=== PATIENT | female | born 1940 | race African-American/Black ===

== ENCOUNTER → 2016-12-18 | Outpatient (CLI) | payer MEDICARE, BC ==
[2016-10-01 09:21] VITALS: BP 147/66
[~2016-12-18] MED LIST: ACET325T9 PO; AMLO10TA2 PO; ARIP10TA13 PO; ARIP5TAB6 PO; ASPI-482 PO; CARB1TAB22 PO; CARV25TA2 PO; CHOL100013 PO; CRAN250C PO; CRAN500C6 PO; CYAN10005 PO; DOCU-27 PO; DONE5TAB7 PO; FOSI40TA PO; INSU100I13 SQ; INSU100I17 SQ; INSU100V31 SQ; INSU100V8 SQ; KRIL1CAP18 PO; LAMO100T5 PO; LAMO150T3 PO; LANS15TA5 PO; LEVO50TA5 PO; LISI-334 PO; MAG355OR17 PO; MAGN2400 PO; MAGN400T3 PO; METF10002 PO; METH29OI TP; MULT1TAB97 PO; NIFE60TA10 PO; PANT40TA3 PO; POLY17PO5 PO; PRAV80TA2 PO; ROPI0.5T PO
--- NOTE | 2016-12-18 15:17 | RAD ---
Bilateral lower extremity venous Doppler ultrasound History: Bilateral lower extremity swelling, elevated d-dimer. Previous deep venous thrombosis. Comparison: Bilateral lower extremity Doppler 01/09/2015. Procedure: Color Doppler, spectral Doppler, and grayscale images are obtained with and without compression in the area of the common femoral vein, superficial femoral vein - femoral vein junction, main femoral vein (superficial femoral vein) and popliteal vein. Veins of the proximal calf are also imaged. Findings: There is normal duplex flow, color flow and compressibility of all visualized vein segments. No evidence of deep venous thrombosis is present. Impression: No evidence of lower extremity deep venous thrombosis.
== END | disposition home or self-care (01) ==
LOC: US 13:55
PROVIDERS: ATTEND Family Medicine
DX: I99.8 Other disorder of circulatory system (principal); N39.9 Disorder of urinary system, unspecified; E87.6 Hypokalemia; E16.2 Hypoglycemia, unspecified; D56.3 Thalassemia minor; R30.0 Dysuria; R10.84 Generalized abdominal pain
CPT/HCPCS: 93970

== ENCOUNTER → 2017-01-24 | Outpatient (CLI) | payer MEDICARE, BC ==
[2016-10-01 09:21] VITALS: BP 147/66
[~2017-01-24] MED LIST changes: -ARIP10TA13 PO; +ARIP10TA9 PO; +ARIP5TAB13 PO; -ARIP5TAB6 PO; +DOCU-109 PO; -DOCU-27 PO; -LANS15TA5 PO; +LANS15TA6 PO
[2017-01-24 22:29] LABS: COLOR,URINE YELLOW
[2017-01-24 22:30] LABS: AMORPHOUS SEDIMENT,UR PRESENT /HPF; BACTERIA,URINE FEW /HPF (0-FEW); BILIRUBIN,URINE NEG (NEG); CLARITY,URINE HAZY; GLUCOSE,URINE NEG (NEG); HYALINE CASTS, URINE MOD /HPF; NITRITE,URINE NEG (NEG); SQUAMOUS EPITHELIAL CELL,UR MOD /LPF; UROBILINOGEN,URINE 0.2 mg/dL (0.2 mg/dL)
== END | disposition home or self-care (01) ==
LOC: LAB 21:18
PROVIDERS: ATTEND Family Medicine
DX: R30.0 Dysuria (principal)
CPT/HCPCS: 81001; 87086

== ENCOUNTER 2017-03-05 11:37 | Emergency (ER) | payer MEDICARE, BC ==
[~2017-03-05] VITALS: Ht 167.6 cm; Wt 97.2 kg
--- NOTE | 2017-03-05 12:34 | RAD ---
Portable chest, 03/05/2017: History: Weakness Comparison is made to a study from 09/19/2016. The heart size and pulmonary vascularity are normal. No pulmonary infiltrates are seen. There is no evidence of pleural fluid. IMPRESSION: No acute cardiopulmonary abnormality is detected.
--- NOTE | 2017-03-05 12:43 | PHYS DOC ---
Past History Past Medical History: Depression, Diabetes, High Cholesterol, Hypertension, Other Past Surgical History: No Surgical History Smoking: Non-smoker Alcohol Use: None Drug Use: None Adult General Chief Complaint Chief Complaint: LOWER EXT PAIN HPI HPI 76-year-old female presenting to the emergency department today with right leg weakness. This started yesterday around noon. She does not have a history of stroke. She feels that when she walks her right foot drags behind her. She does have a history of Parkinson's and follows with . She describes the weakness is constant. She denies any slurring of speech vision changes or weakness of her upper extremities. She denies vision changes. Location brain. Duration constant. No alleviating or exacerbating factors. She reports that it is making her have a difficult time walking. Review of systems was negative for chest pain shortness of breath fevers chills cough. She denies any new rashes. All other review of systems is negative unless otherwise noted in history of present illness. ED course: 76-year-old female presenting to the emergency department today with right lower extremity weakness. Vital signs afebrile. Normal pulse. Pertinent physical exam findings show 4 out of 5 strength in her right lower extremity otherwise normal neurologic exam. Chest x-ray EKG and blood work were obtained along with CT of the head. Pt is outside of tpa window. The patient was in transferred to [facility] for MRI given the focal neurologic changes. I discussed the case with the neurologist on-call dr. clark. Dr. jackson was admitting dr. Review of Systems Review of Systems SEE ABOVE. Allergies Allergies Allergies Coded Allergies Type Severity Reaction Last Updated Verified atorvastatin Allergy Intermediate "sore upper arms" 02/16/15 Yes iodine Allergy Intermediate 09/25/15 Yes pioglitazone Allergy Mild 01/02/16 Yes Physical Exam Physical Exam Constitutional: Well developed, well nourished, no acute distress, non-toxic appearance. [] HENT: Normocephalic, atraumatic, bilateral external ears normal, oropharynx moist, no oral exudates, nose normal. [] Eyes: PERRLA, EOMI, conjunctiva normal, no discharge. [] Neck: Normal range of motion, no tenderness, supple, no stridor. [] Cardiovascular:Heart rate regular rhythm, no murmur [] Lungs & Thorax: Bilateral breath sounds clear to auscultation [] Abdomen: Bowel sounds normal, soft, no tenderness, no masses, no pulsatile masses. [] Skin: Warm, dry, no erythema, no rash. [] Back: No tenderness, no CVA tenderness. [] Extremities: No tenderness, no cyanosis, no clubbing, ROM intact, no edema. [] Neurologic: Mental status: Awake oriented and alert x3 Cranial nerves: Extraocular movements intact, eyebrows henry bilaterally smile symmetric, uvula elevation, shoulder shrug intact, tongue protrusion normal DTRs: 2+ Sensation: equal and normal in all extremities Strength: see above Psychologic: Affect normal, judgement normal, mood normal. [] Current Patient Data Vital Signs Vital Signs Date Time Temp Pulse Resp B/P (MAP) Pulse Ox O2 Delivery O2 Flow Rate FiO2 03/05/17 11:45 97.9 67 18 98 Room Air EKG EKG [] Radiology/Procedures Radiology/Procedures [] Course & Med Decision Making Course & Med Decision Making Pertinent Labs and Imaging studies reviewed. (See chart for details) [] Dragon Disclaimer Dragon Disclaimer This chart was dictated in whole or in part using Voice Recognition software in a busy, high-work load, and often noisy Emergency Department environment. It may contain unintended and wholly unrecognized errors or omissions. Departure Departure: Impression: Primary Impression: Weakness of right lower extremity Disposition: 02 XFER SHT-TRM HOSP Condition: STABLE Referrals: PERLA LORENZO MD (PCP) IVY TAPIA MD Mar 05, 2017 12:42
--- NOTE | 2017-03-05 12:44 | EKG ---
[address] [address] Test Date: 2017-03-05 Test Time: 12:37:59 Pat Name: 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
[2017-03-05 12:48] LABS: BASO # 0.1 x10^3/uL (0.0-0.2); BASO % 1 % (0-3); EOS # 0.1 x10^3/uL (0.0-0.7); EOS % 1 % (0-3); HEMATOCRIT 33.9 % (36.0-47.0); HEMOGLOBIN 10.7 g/dL (12.0-15.5); LYMPH # 1.5 x10^3/uL (1.0-4.8); LYMPH % 18 % (24-48); MEAN CORPUSCULAR HEMOGLOBIN 20 pg (25-35); MEAN CORPUSCULAR HGB CONC 32 g/dL (31-37); MEAN CORPUSCULAR VOLUME 64 fL (79-100); MONO # 0.3 x10^3/uL (0.0-1.1); MONO % 4 % (0-9); NEUT # 5.9 x10^3uL (1.8-7.7); NEUT % 76 % (31-73); PLATELET COUNT 277 x10^3/uL (140-400); RED BLOOD COUNT 5.26 x10^6/uL (3.50-5.40); RED CELL DISTRIBUTION WIDTH 16.9 % (11.5-14.5); WHITE BLOOD COUNT 7.9 x10^3/uL (4.0-11.0)
--- NOTE | 2017-03-05 13:09 | RAD ---
Indication right lower extremity weakness. History of Parkinson's disease. Noncontrast images of the head were obtained and are compared to an examination 05/16/2015. No acute or significant calvarial finding is seen. The visualized paranasal sinuses appear unremarkable. There is no subdural or epidural hematoma. The ventricles and sulci are normal given the patient's age. There is no mass or midline shift. No hemorrhage is seen. No acute finding is apparent. IMPRESSION: No acute finding seen on noncontrast CT images of the head PQRS Compliance Statement: One or more of the following individualized dose reduction techniques were utilized for this examination: 1. Automated exposure control 2. Adjustment of the mA and/or kV according to patient size 3. Use of iterative reconstruction technique
[2017-03-05 13:10] LABS: ALBUMIN 3.7 g/dL (3.4-5.0); CALCIUM 9.6 mg/dL (8.5-10.1); CREATININE 1.1 mg/dL (0.6-1.0); DIRECT BILIRUBIN 0.2 mg/dL (0.0-0.2); GFR 58.7; POTASSIUM 4.3 mmol/L (3.5-5.1); TOTAL BILIRUBIN 0.9 mg/dL (0.2-1.0); TOTAL PROTEIN 7.6 g/dL (6.4-8.2)
[2017-03-05] MEDS ORDERED: LABETALOL 100 MG/20 ML VIAL. IV ONE (13:20)
[2017-03-05 13:25] LABS: HYPOCHROMIA MARKED; MICROCYTOSIS MOD; PLT ESTIMATE ADEQUATE (ADEQUATE); POLYCHROMASIA SLIGHT; TARGET CELLS PRESENT; TEAR DROP CELLS PRESENT
[2017-03-05 16:40] VITALS: BP 182/71
== END 2017-03-05 16:45 | disposition short-term general hospital (02) ==
LOC: ER 11:37
DX: R53.1 Weakness (principal); E11.9 Type 2 diabetes mellitus without complications; E78.00 Pure hypercholesterolemia, unspecified; I10 Essential (primary) hypertension; G20 Parkinson's disease; Z88.8 Allergy status to other drugs, medicaments and biological substances; Z91.041 Radiographic dye allergy status
CPT/HCPCS: 36415; 70450; 71010; 80048; 80076; 83690; 83880; 84484; 85008; 85027; 93005; 96374; 99285; J3490

== ENCOUNTER → 2017-07-30 | Outpatient (CLI) | payer MEDICARE, BC ==
--- NOTE | 2017-07-30 12:01 | RAD ---
Bilateral lower extremity venous ultrasound, 07/30/2017: History: Bilateral leg and calf swelling Duplex evaluation of the deep veins in the lower extremities was performed including grayscale, color-flow and spectral Doppler analysis. The femoral and popliteal veins demonstrate normal compressibility and normal responses to distal augmentation maneuvers. Color imaging of those vessels shows no evidence of intraluminal clot. The visualized deep veins in both calves are patent. IMPRESSION: There is no sonographic evidence of deep vein thrombosis in either lower extremity.
== END | disposition home or self-care (01) ==
LOC: US 10:27
PROVIDERS: ATTEND Family Medicine
DX: M79.89 Other specified soft tissue disorders (principal)
CPT/HCPCS: 93970

== ENCOUNTER 2018-06-13 16:05 | Inpatient (IN) | payer MEDICARE, BC ==
[~2018-06-13] VITALS: Ht 165.1 cm; Wt 83.1 kg
[~2018-06-13 16:05] MED LIST changes: -AMLO10TA2 PO; +AMLO10TA6 PO; -FOSI40TA PO; +FOSI40TA3 PO; -METF10002 PO; +METF10007 PO; -NIFE60TA10 PO; +NIFE60TA14 PO
--- NOTE | 2018-06-13 16:29 | PHYS DOC ---
Past History Past Medical History: Depression, Diabetes, High Cholesterol, Hypertension, Other Past Surgical History: No Surgical History Smoking: Non-smoker Alcohol Use: None Drug Use: None Adult General Chief Complaint Chief Complaint: ALTERED MENTAL STATUS HPI HPI 77-year-old female presents with altered mental status. The patient and they'll be provided the history. The patient was sitting at home having a little bite to eat talking to her son when he began to feel diaphoretic. Sent her scan and found to be moist. The patient then went unresponsive and kind of slumped over in her chair. Family was attempting to wake her up for least a few minutes. When the patient came to, she had some vomiting. She did not fall or hit her head. Family did a fingerstick glucose and found her blood sugar to be over 500. Family called an ambulance. The patient began to come back around while she was in the ambulance. This episode lasted about 20 minutes. At that time, she was able to speak verbally head appeared to be aware of her surroundings. Patient has not been reported to have fever or chills at home. Review of Systems Review of Systems Constitutional: Denies fever or chills [] Eyes: Denies change in visual acuity, redness, or eye pain [] HENT: Denies nasal congestion or sore throat [] Respiratory: Denies cough or shortness of breath [] Cardiovascular: No additional information not addressed in HPI [] GI: Denies abdominal pain, nausea, vomiting, bloody stools or diarrhea [] : Denies dysuria or hematuria [] Musculoskeletal: Denies back pain or joint pain [] Integument: Denies rash or skin lesions [] Neurologic: AMS [] Endocrine: Denies polyuria or polydipsia [] All other systems were reviewed and found to be within normal limits, except as documented in this note. Current Medications Current Medications Current Medications Medications (Trade) Dose Ordered Sig/Evy Start Time Stop Time Status Last Admin Dose Admin Ondansetron HCl (Zofran) 4 mg 1X ONCE 06/13/18 16:45 06/13/18 16:46 Allergies Allergies Allergies Coded Allergies Type Severity Reaction Last Updated Verified atorvastatin Allergy Intermediate "sore upper arms" 02/16/15 Yes iodine Allergy Intermediate 09/25/15 Yes pioglitazone Allergy Mild 01/02/16 Yes Physical Exam Physical Exam Constitutional: Well developed, obese, well nourished, no acute distress, non- toxic appearance. [] HENT: Normocephalic, atraumatic, bilateral external ears normal, oropharynx moist, no oral exudates, nose normal. [] Eyes: PERRLA, EOMI, conjunctiva normal, no discharge. [] Neck: Normal range of motion, no tenderness, supple, no stridor. [] Cardiovascular:Heart rate regular rhythm, no murmur [] Lungs & Thorax: Bilateral breath sounds clear to auscultation [] Abdomen: Bowel sounds normal, soft, no tenderness, no masses, no pulsatile masses. [] Skin: Warm, dry, no erythema, no rash. [] Back: No tenderness, no CVA tenderness. [] Extremities: No tenderness, no cyanosis, no clubbing, ROM intact, no edema. [] Neurologic: Alert and oriented X 3, normal motor function, normal sensory function, no focal deficits noted. [] Psychologic: Affect normal, judgement normal, mood normal. [] EKG EKG Sinus rhythm, rate 63, normal axis, no ST elevations or depressions.[] Radiology/Procedures Radiology/Procedures [] Impressions: CT HEAD INDICATION: mental status change, syncope COMPARISON: 03/05/2017 Exposure: One or more of the following individualized dose reduction techniques were utilized for this examination: 1. Automated exposure control 2. Adjustment of the mA and/or kV according to patient size 3. Use of iterative reconstruction technique TECHNIQUE: 5 mm contiguous axial images were obtained from the skull base to the vertex in both bone and soft tissue algorithm. FINDINGS: Moderate bilateral periventricular white matter hypodensities likely chronic small vessel ischemic disease. No evidence of acute intracranial hemorrhage. No extra-axial fluid collections. No mass effect or midline shift. Ventricular size is appropriate. Basal cisterns are patent. No fractures identified.Knight-white differentiation is preserved.Globes and orbits are within normal limits. Paranasal sinuses and mastoid air cells are clear. IMPRESSION: No acute intracranial findings. Electronically signed by: Tyler Myers MD (06/13/2018 4:43 PM) [facility] DICTATED AND SIGNED BY: TYLER MYERS MD DATE: 06/13/18 [id number] CC: LESLI SAINZ DO; PERLA LORENZO MD EXAM: CHEST 1 VIEW History: Syncope COMPARISON: 03/05/2017 TECHNIQUE: Single portable radiograph of the chest FINDINGS: The cardiac silhouette is unremarkable. The lungs are clear bilaterally. The costophrenic sulci are clear and well demarcated. IMPRESSION: No radiographic evidence of an acute cardiopulmonary process. Electronically signed by: Tyler Myers MD (06/13/2018 4:44 PM) [facility] DICTATED AND SIGNED BY: YTLER MYERS MD DATE: 06/13/18 099 CC: LESLI SAINZ DO; PERLA LORENZO MD Course & Med Decision Making Course & Med Decision Making Pertinent Labs and Imaging studies reviewed. (See chart for details) The patient came back from CT, we had longer conversation. The patient is extremely lucid. She is able to calmly specific details from this week. She appears to be at baseline according to family. She tells me that she fell a couple days ago because she laid her head on the kitchen counter and then actually fell asleep and fell out of her seat. She did hit the right side of her head but has not had any significant symptoms other than some mild jaw pain. The patient's EKG is unremarkable. Her head CT is negative for acute findings. Her chest x-ray is negative for acute findings. Her labs are unremarkable. She does not seem to have urinary tract infection. I do not have a reason for the patient's altered mental status. I discussed her with the hospitalist, Dr. Hernandez and he has agreed to admit the patient for further observation and workup if needed. I discussed this with the patient and her family, they are in agreement with this plan. [] Dragon Disclaimer Dragon Disclaimer This electronic medical record was generated, in whole or in part, using a voice recognition dictation system. Departure Departure: Referrals: PERLA LORENZO MD (PCP) LESLI SAINZ DO Jun 13, 2018 16:29
[2018-06-13] MEDS ORDERED: ONDANSETRON PF 4 MG/2 ML VIAL. IV ONE (16:45)
--- NOTE | 2018-06-13 16:47 | RAD ---
CT HEAD INDICATION: mental status change, syncope COMPARISON: 03/05/2017 Exposure: One or more of the following individualized dose reduction techniques were utilized for this examination: 1. Automated exposure control 2. Adjustment of the mA and/or kV according to patient size 3. Use of iterative reconstruction technique TECHNIQUE: 5 mm contiguous axial images were obtained from the skull base to the vertex in both bone and soft tissue algorithm. FINDINGS: Moderate bilateral periventricular white matter hypodensities likely chronic small vessel ischemic disease. No evidence of acute intracranial hemorrhage. No extra-axial fluid collections. No mass effect or midline shift. Ventricular size is appropriate. Basal cisterns are patent. No fractures identified.Knight-white differentiation is preserved.Globes and orbits are within normal limits. Paranasal sinuses and mastoid air cells are clear. IMPRESSION: No acute intracranial findings. Electronically signed by: Tyler Hill MD (06/13/2018 4:43 PM) [facility]
--- NOTE | 2018-06-13 16:48 | RAD ---
EXAM: CHEST 1 VIEW History: Syncope COMPARISON: 03/05/2017 TECHNIQUE: Single portable radiograph of the chest FINDINGS: The cardiac silhouette is unremarkable. The lungs are clear bilaterally. The costophrenic sulci are clear and well demarcated. IMPRESSION: No radiographic evidence of an acute cardiopulmonary process. Electronically signed by: Tyler Hill MD (06/13/2018 4:44 PM) [facility]
[2018-06-13 16:57] LABS: BASO # 0.1 x10^3/uL (0.0-0.2); BASO % 1 % (0-3); EOS # 0.1 x10^3/uL (0.0-0.7); EOS % 2 % (0-3); HEMATOCRIT 34.6 % (36.0-47.0); HEMOGLOBIN 10.7 g/dL (12.0-15.5); LYMPH # 1.1 x10^3/uL (1.0-4.8); LYMPH % 14 % (24-48); MEAN CORPUSCULAR HEMOGLOBIN 20 pg (25-35); MEAN CORPUSCULAR HGB CONC 31 g/dL (31-37); MEAN CORPUSCULAR VOLUME 64 fL (79-100); MONO # 0.3 x10^3/uL (0.0-1.1); MONO % 3 % (0-9); NEUT # 6.4 x10^3uL (1.8-7.7); NEUT % 81 % (31-73); PLATELET COUNT 253 x10^3/uL (140-400); RED BLOOD COUNT 5.37 x10^6/uL (3.50-5.40); RED CELL DISTRIBUTION WIDTH 16.3 % (11.5-14.5); WHITE BLOOD COUNT 7.9 x10^3/uL (4.0-11.0)
[2018-06-13 17:12] LABS: ALBUMIN 3.4 g/dL (3.4-5.0); ALBUMIN/GLOBULIN RATIO 0.9 (1.0-1.7); CALCIUM 9.5 mg/dL (8.5-10.1); CREATININE 1.1 mg/dL (0.6-1.0); GFR 58.6; POTASSIUM 3.9 mmol/L (3.5-5.1); TOTAL BILIRUBIN 0.6 mg/dL (0.2-1.0)
[2018-06-13 17:16] LABS: PLT ESTIMATE ADEQUATE (ADEQUATE); POLYCHROMASIA SLIGHT
[2018-06-13 17:17] LABS: HYPOCHROMIA SLIGHT; POIKILOCYTOSIS MOD
[2018-06-13 17:18] LABS: MICROCYTOSIS MARKED; OVALOCYTES FEW
[2018-06-13 17:19] LABS: BURR CELLS FEW; SCHISTOCYTES FEW
[2018-06-13 17:20] LABS: TARGET CELLS OCC; TEAR DROP CELLS OCC
[2018-06-13 17:28] LABS: BILIRUBIN,URINE NEG (NEG); CLARITY,URINE CLEAR; COLOR,URINE YELLOW; GLUCOSE,URINE NEG (NEG)
[2018-06-13 17:29] LABS: BACTERIA,URINE FEW /HPF (0-FEW); NITRITE,URINE NEG (NEG); RBC,URINE 0 /HPF (0-2); SQUAMOUS EPITHELIAL CELL,UR FEW /LPF; UROBILINOGEN,URINE 0.2 mg/dL (0.2 mg/dL)
[2018-06-13] MEDS ORDERED: ONDANSETRON PF 4 MG/2 ML VIAL. IV PRN (18:00)
--- NOTE | 2018-06-13 18:22 | EKG ---
[address] [address] Test Date: 2018-06-13 Test Time: 16:12:57 Pat Name: 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
[2018-06-13 19:23] VITALS: BP 174/89
[2018-06-13 23:14] VITALS: BP 176/72
[2018-06-14 04:30] VITALS: BP 185/76
[2018-06-14 07:58] LABS: BASO # 0.1 x10^3/uL (0.0-0.2); BASO % 1 % (0-3); EOS # 0.1 x10^3/uL (0.0-0.7); EOS % 2 % (0-3); HEMATOCRIT 33.4 % (36.0-47.0); HEMOGLOBIN 10.4 g/dL (12.0-15.5); LYMPH # 1.4 x10^3/uL (1.0-4.8); LYMPH % 20 % (24-48); MEAN CORPUSCULAR HEMOGLOBIN 20 pg (25-35); MEAN CORPUSCULAR HGB CONC 31 g/dL (31-37); MEAN CORPUSCULAR VOLUME 65 fL (79-100); MONO # 0.2 x10^3/uL (0.0-1.1); MONO % 4 % (0-9); NEUT % 74 % (31-73); PLATELET COUNT 248 x10^3/uL (140-400); RED BLOOD COUNT 5.16 x10^6/uL (3.50-5.40); RED CELL DISTRIBUTION WIDTH 16.8 % (11.5-14.5); WHITE BLOOD COUNT 6.8 x10^3/uL (4.0-11.0)
[2018-06-14 08:10] LABS: CALCIUM 9.5 mg/dL (8.5-10.1); CREATININE 0.9 mg/dL (0.6-1.0); GFR 73.9; POTASSIUM 4.4 mmol/L (3.5-5.1)
[2018-06-14] MEDS ORDERED: ACETAMINOPHEN 325 MG TABLET PO PRN (09:00)
[2018-06-14] MEDS: CARBIDOPA/LEVODOPA 25/100MG TABLET PO SCH ×5 (09:00→21:55)
[2018-06-14] MEDS ORDERED: METHYL SALICYLATE/MENTHOL TOPICAL OINTMENT 29GM TUBE. TP PRN (09:00)
[2018-06-14] MEDS ORDERED: DOCUSATE SODIUM 100 MG CAPSULE PO PRN (09:45)
[2018-06-14] MEDS ORDERED: LEVOTHYROXINE 75 MCG TABLET PO SCH (10:00)
[2018-06-14] MEDS ORDERED: MAG HYDROX/AL HYDROX/SIMETH 30 ML ORAL.SUSP PO PRN (10:00)
[2018-06-14] MEDS ORDERED: MAGNESIUM HYDROXIDE 2,400 MG/30 ML ORAL.SUSP. PO PRN (10:00)
--- NOTE | 2018-06-14 10:21 | HP ---
ADMIT DATE: 06/13/2018 HISTORY OF PRESENT ILLNESS: The patient is a 77-year-old female with a long history of diabetes, change in mental status. The patient was apparently sitting at home and eating, she felt extremely diaphoretic, became somewhat unresponsive, slumped over, eyes rolled back. The patient was witnessed by her son. EMS was called, brought in to the Emergency Room and apparently fingerstick showed a blood sugar of 500. The patient, however, by the time she got in to the Emergency Room, was doing somewhat better, but she was admitted for further evaluation of what may have been seizure activity and obviously high elevation of her blood sugar. The patient was admitted for change in mental status. PAST MEDICAL HISTORY: Extensive. The patient has had problems with encephalopathy, Parkinson's disease, hypercholesterolemia, hypertension, fibroids, cholecystectomy, incontinence, osteoarthritis, orthopedic problems, diabetes, thalassemia, psychiatric problems of bipolar disorder, depression, anemia, hematological symptoms, influenza vaccination and pneumococcal are up-to-date. FAMILY HISTORY: Positive for hypertension, diabetes and cardiovascular disease. ALLERGIES: ATORVASTATIN, IODINE AND PIOGLITAZONE. FAMILY HISTORY: Noted with the father and mother with hypertension. Father with heart disease and diabetes. SOCIAL HISTORY: No smoking, alcohol or drug use. REVIEW OF SYSTEMS: The patient denies any recent weight loss, weight gain, change in bowel habits, but tremor seems to be getting worse and her sugars seem to be a little bit more erratic. HOME MEDICATIONS: Include that of Aricept 5 mg, pravastatin 80 mg, carvedilol 25, nifedipine 60, lisinopril 40, aspirin 81, methyl salicylate, Tylenol, Lamictal 150 b.i.d., Abilify 5 mg, carbidopa and levodopa 25/100 one t.i.d., Requip 0.25 t.i.d., magnesium oxide, Colace, metformin 1000 b.i.d., insulin NovoLog a.c. and at bedtime, levothyroxine, Krill oil and cranberry extract. PHYSICAL EXAMINATION: GENERAL: Pleasant, -[place] female in moderate amount of distress. VITAL SIGNS: Blood pressure 176/72, respiratory rate 20, pulse 80, temperature 98.9. HEENT: The patient's head was atraumatic, normocephalic. Eyes: PERRLA without jaundice. Mouth and throat were normal. NECK: Supple. LUNGS: Clear. CARDIOVASCULAR: Regular sinus rhythm with a strong possible rumbling sound. ABDOMEN: The patient's abdomen is soft, protuberant, nontender. EXTREMITIES: No clubbing, cyanosis, no edema. Hyperpigmentation to the lower extremities. Pulses noted distally. NEUROLOGIC: The patient is alert and oriented. Speech fluent, spontaneous, appropriate. She will be continued to be monitored carefully, make further evaluation on her as indicated on those matters. Presently, she is baseline except for her shaking tremor consistent with her severe, poorly-controlled diabetes and of course her Parkinson's disease. Her speech pattern is very rapid consistent with her manic depressive disorder and Dr. Kendall has been seeing her for that. LABORATORY DATA: Her labs show her to have thalassemia from her blood count. The patient's blood sugar was basically stable. Urine was unremarkable. RADIOLOGICAL DATA: Chest x-ray unremarkable. CT scan of the head unremarkable. IMPRESSION AND PLAN: Change in mental status, hyperglycemia, possible seizure activity. We will see if Dr. Gordon also see her here as an outpatient for EEG and make further evaluation. Right now, we are controlling blood sugar, we will try PT, OT and make further evaluation on her as indicated. PERLA LORENZO MD DR: WALESKA/kenneth JOB#: [id number] / [id number]
[2018-06-14 10:26] VITALS: BP 172/69
[2018-06-14] MEDS ORDERED: INSU100I13 SQ (11:24)
[2018-06-14] MEDS ORDERED: INSU100I17 SQ ×3 (11:24)
[2018-06-14] MEDS ORDERED: ROPI0.5T PO (11:24)
[2018-06-14] MEDS ORDERED: NON FORMULARY ITEM (Insulin Aspart (Novolog Flexpen) 0 UNITS) SQ SCH (11:30)
[2018-06-14] MEDS ORDERED: NON FORMULARY ITEM (Cranberry Extract (Cranberry) 500 MG) PO SCH (12:00)
[2018-06-14] MEDS ORDERED: DHA PO SCH (12:00)
[2018-06-14] MEDS ORDERED: [UNRECOGNIZED DRUG - OTHER] PO SCH (12:00)
[2018-06-14] MEDS ORDERED: AST PO SCH (12:00)
[2018-06-14] MEDS ORDERED: PHOSPHO PO SCH (12:00)
[2018-06-14] MEDS ORDERED: EPA PO SCH (12:00)
[2018-06-14] MEDS ORDERED: KRILL PO SCH (12:00)
[2018-06-14] MEDS: LISINOPRIL 20 MG TABLET PO SCH (12:39)
[2018-06-14] MEDS: MULTIVITAMIN with MINERAL TABLET. PO SCH (12:39)
[2018-06-14] MEDS: ASPIRIN 81 MG TAB.CHEW PO SCH (12:39)
[2018-06-14] MEDS: CYANOCOBALAMIN (VITAMIN B-12) 1,000 MCG TABLET. PO SCH (12:40)
[2018-06-14] MEDS: lamoTRIgine 150 MG TABLET. PO SCH ×2 (12:40→21:55)
[2018-06-14] MEDS ORDERED: DEXTROSE 50% 25 GM / 50ML DISP.SYRIN. IV PRN (13:15)
[2018-06-14] MEDS: rOPINIRole 1 MG TABLET. PO SCH (14:00)
[2018-06-14] MEDS ORDERED: rOPINIRole 0.25 MG TABLET. PO SCH (14:00)
[2018-06-14] MEDS ORDERED: MAGN500C11 PO (14:16)
[2018-06-14 14:51] VITALS: BP 175/75
[2018-06-14] MEDS: CARVEDILOL 12.5 MG TABLET PO SCH (17:19)
[2018-06-14] MEDS: metFORMIN 500 MG TABLET PO SCH (17:19)
[2018-06-14] MEDS: INSULIN LISPRO 300 UNITS/3 ML INSULN.PEN. SQ SCH (17:24)
[2018-06-14 19:38] VITALS: BP 128/72
[2018-06-14] MEDS ORDERED: ARIPiprazole 5 MG TABLET PO SCH (21:00)
[2018-06-14] MEDS: DONEPEZIL HCL 5 MG TABLET. PO SCH (21:55)
[2018-06-14] MEDS: rOPINIRole 0.5 MG TABLET. PO SCH (21:55)
[2018-06-14] MEDS: PRAVASTATIN 20 MG TABLET. PO SCH (21:55)
[2018-06-14] MEDS: ARIPiprazole 5 MG TABLET PO SCH (21:56)
[2018-06-14] MEDS: INSULIN GLARGINE 300 UNITS/3 ML INSULN.PEN. SQ SCH (22:03)
[2018-06-14 22:55] VITALS: BP 170/76
[2018-06-15 05:19] VITALS: BP 146/72
[2018-06-15] MEDS: LEVOTHYROXINE 75 MCG TABLET PO SCH (06:10)
[2018-06-15] MEDS: INSULIN LISPRO 300 UNITS/3 ML INSULN.PEN. SQ SCH ×3 (08:00→17:23)
[2018-06-15] MEDS ORDERED: POLYETHYLENE GLYCOL 3350 17 GM PACKET. PO PRN (09:00)
[2018-06-15] MEDS: ASPIRIN 81 MG TAB.CHEW PO SCH (09:33)
[2018-06-15] MEDS: metFORMIN 500 MG TABLET PO SCH ×2 (09:34→17:18)
[2018-06-15] MEDS: CARVEDILOL 12.5 MG TABLET PO SCH ×2 (09:34→17:19)
[2018-06-15] MEDS: rOPINIRole 1 MG TABLET. PO SCH ×2 (09:35→14:50)
[2018-06-15] MEDS: LISINOPRIL 20 MG TABLET PO SCH (09:35)
[2018-06-15] MEDS: CARBIDOPA/LEVODOPA 25/100MG TABLET PO SCH ×4 (09:35→20:27)
[2018-06-15] MEDS: lamoTRIgine 150 MG TABLET. PO SCH ×2 (09:36→20:28)
[2018-06-15 10:29] VITALS: BP 151/74
[2018-06-15] MEDS: MAGNESIUM OXIDE 400 MG TABLET PO SCH (12:37)
[2018-06-15] MEDS: CYANOCOBALAMIN (VITAMIN B-12) 1,000 MCG TABLET. PO SCH (12:37)
[2018-06-15] MEDS: CHOLECALCIFEROL (VITAMIN D3) 1,000 UNIT TABLET PO SCH (12:37)
[2018-06-15] MEDS: MULTIVITAMIN with MINERAL TABLET. PO SCH (12:37)
[2018-06-15 15:24] VITALS: BP 125/68
[2018-06-15 20:00] VITALS: BP 136/70
[2018-06-15] MEDS: rOPINIRole 0.5 MG TABLET. PO SCH (20:26)
[2018-06-15] MEDS: DONEPEZIL HCL 5 MG TABLET. PO SCH (20:27)
[2018-06-15] MEDS: PRAVASTATIN 20 MG TABLET. PO SCH (20:27)
[2018-06-15] MEDS: ARIPiprazole 5 MG TABLET PO SCH (20:28)
[2018-06-15] MEDS: INSULIN GLARGINE 300 UNITS/3 ML INSULN.PEN. SQ SCH (20:38)
[2018-06-15 23:00] VITALS: BP 163/73
--- NOTE | 2018-06-16 00:33 | PN ---
DATE: 06/15/2018 SUBJECTIVE: This 77-year-old female had an episode at home where her eyes rolled back and of course had generalized weakness PERLA LORENZO MD DR: WALESKA/kenneth JOB#: [id number] / [id number]
--- NOTE | 2018-06-16 00:44 | PN ---
DATE: 06/15/2018 SUBJECTIVE: This is a 77-old female who came in with change in mental status yesterday, a sudden onset. The patient had problems and her sugar went very high. As a result of this, the patient was brought in to the Emergency Room where her sugar was coming down, although allegedly it went up as high as 500 and came down in the 100 and so forth. The patient, otherwise, in the last 24 hours has made fairly good progress. She is still very weak on her legs, still needs PT/OT to get around without her falling. OBJECTIVE: VITAL SIGNS: Otherwise, her blood pressure has been as high as 170 down to 140/72, respiratory rate 20, pulse 80, afebrile. GENERAL: The patient is alert and oriented. Speech is fluent, spontaneous, and appropriate. Cranial nerves 2 through 12 grossly intact. LUNGS: Diminished, but clear. CARDIOVASCULAR: Regular sinus rhythm, S1-S2. ABDOMEN: Protuberant. EXTREMITIES: No clubbing, cyanosis, or edema. The patient otherwise presents with her son, Sheldon, and had a good discussion. I answered all questions. The patient continued to be monitored. Recommended her to go to skilled unit for continued rehabilitation for her generalized weakness. Otherwise, mental status seems to be basically holding its own. Blood sugars 86 this morning. IMPRESSION: Change in mental status, acute hyperglycemia. PERLA LORENZO MD DR: WALESKA/kenneth JOB#: [id number] / [id number]
--- NOTE | 2018-06-16 01:23 | CONS ---
DATE OF CONSULTATION: 06/14/2018 REFERRING PHYSICIAN: Dr. Roegrs. REASON FOR CONSULTATION: Mental status changes, rule out seizure. HISTORY OF PRESENT ILLNESS: This is a 77-year-old right-handed -[place]ammar[place] female, who was admitted through Emergency Room after she presented with a sudden onset of mental status changes. According to the patient, she was sitting at home and eating, all of a sudden she felt diaphoretic and started losing her consciousness. She slumped over and eyes rolled back in the head. She was witnessed by her son, who activated EMS and transferred the patient to Emergency Room. According to the patient, she was found to have a blood sugar of 500. She did not recall what happened at home. Currently, the patient denies headaches, visual disturbances, nausea, vomiting, chest pain, shortness of breath, palpitation, dysarthria or dysphagia. Initial nonenhanced head CT scan revealed no acute intracranial process, but showed chronic small vessel ischemic changes. PAST MEDICAL HISTORY: Quite extensive and includes Parkinson disease, hypertension, hyperlipidemia, incontinence, osteoarthritis, diabetes mellitus, thalassemia, bipolar disorder, and depression. PAST SURGICAL HISTORY: Significant for cholecystectomy. SOCIAL HISTORY: The patient is . She denies smoking, alcohol drinking, or illicit drug use. FAMILY HISTORY: Positive for diabetes mellitus, stroke and hypertension. CURRENT HOME MEDICATIONS: Carbidopa/levodopa 25/100 t.i.d., Requip 0.25 mg t.i.d., Aricept 5 mg daily for memory loss, pravastatin 80 mg daily, carvedilol 25 mg daily, nifedipine 60 mg daily, lisinopril 40 mg daily, aspirin 81 mg daily, Lamictal 150 mg b.i.d., Abilify 5 mg daily, metformin 1000 mg b.i.d., and insulin NovoLog a.c. and at bedtime. REVIEW OF SYSTEMS: A 10-point review of system was performed as mentioned above in history of present illness. PHYSICAL EXAMINATION: GENERAL: Well-developed and well-nourished female, not in acute distress. She weighs 182 pounds. VITAL SIGNS: Blood pressure 172/69, respiratory rate 20, pulse is 70 and regular, temperature 98.4, and oxygen saturation 92% on room air. HEENT: Normocephalic and atraumatic, otherwise unremarkable. NECK: Supple. Negative for carotid bruit, lymphadenopathy or thyromegaly. LUNGS: Clear to A and P. CARDIOVASCULAR: 1/6 systolic murmur. Normal S1, S2. There is no S3, S4 murmur. ABDOMEN: Soft. Bowel sounds positive. EXTREMITIES: Negative for cyanosis, clubbing or pitting edema. NEUROLOGIC: Mental status: The patient is alert and oriented x 2. The speech is fluent. There is no language dysfunction. Memory, judgment, and abstract thinking are fair. The patient denies hallucination or delusion. Cranial Nerves: Visual alberts are full. The pupils are reactive to light and accommodation. The extraocular movements are intact. There is no nystagmus. There is no facial motor or sensory deficit. Hearing is intact bilaterally. The palate is elevated symmetrically. Sternocleidomastoid muscles are powerful bilaterally. The patient shrugs her shoulders symmetrically, protrudes her tongue in the midline without fasciculation or atrophy. Motor: No focal muscle bulk was seen. The tone is normal. The strength is 4/5 throughout. The patient had resting tremor of the hands. Sensory: Examination revealed diminished pinprick and light touch senses in patchy distributions in both lower extremities. Deep tendon reflexes were symmetric and hypoactive with absent Achilles responses. Gait and Coordination: Gait is not done. LABORATORY DATA: CBC revealed white blood cells of 6800, hemoglobin 10.4, hematocrit 33.4, and platelet count 248,000. Chemistry revealed sodium of 144, potassium 4.4, chloride 106, CO2 of 33, BUN 12, creatinine 0.9, glucose 115, and calcium 9.5. Urinalysis revealed small urinary leukocyte esterase with white blood cells 5-10. IMPRESSION: 1. Acute encephalopathy - improved, probably metabolic due to severe hyperglycemia. 2. Rule out seizure. 3. Multiple medical problems including diabetes mellitus, hypertension, hyperlipidemia, Parkinson disease, and bipolar disorder. RECOMMENDATIONS: 1. We will continue with current management initiated by Dr. Rogers. 2. Physical therapy evaluation. 3. Psychiatric consult. 4. Continue with current home medications. 5. We will arrange for EEG on an outpatient basis to rule out seizure disorder. M Christal OSORIO MD DR: MEHRDAD/kenneth JOB#: [id number] / [id number]
--- NOTE | 2018-06-16 01:24 | PN ---
DATE: 06/15/2018 SUBJECTIVE: The patient denies any new medical or neurological complaints. She continues to have mild resting tremor of the hands, but she denies headache, visual disturbances, chest pain, shortness of breath or palpitation, dysarthria, dysphagia, paraesthesia, or vertigo. OBJECTIVE: GENERAL: A well-developed and well-nourished female, not in acute distress. VITAL SIGNS: Blood pressure 146/72, respiratory rate 20, pulse is 82 and regular, temperature 97.9, and oxygen saturation is 95% on room air. HEENT: Normocephalic and atraumatic, otherwise unremarkable. NECK: Supple. Negative for carotid bruit, lymphadenopathy or thyromegaly. LUNGS: Clear to A and P. CARDIOVASCULAR: Regular rhythm, normal S1, S2. There is no S3, S4, or murmur. ABDOMEN: Soft. Bowel sounds positive. NEUROLOGIC: Normal mental status and intact cranial nerves. EXTREMITIES: Negative for cyanosis, clubbing or pitting edema. Motor examination revealed resting tremor of the hands. The tone is normal. The strength is 4/5 throughout. Sensory examination revealed a normal pinprick and light touch senses throughout. Deep tendon reflexes were symmetric and hypoactive with absent Achilles responses. Gait: The patient uses a walker for ambulation. IMPRESSION: 1. Encephalopathy - improved, probably due to underlying hyperglycemia. 2. Multiple medical problems include Parkinson disease, hypertension, hyperlipidemia, osteoarthritis, diabetes mellitus, depression, bipolar disorder, and early dementia. RECOMMENDATIONS: Continue with current management initiated by Dr. Rogers and resume her home medications. M Christal OSORIO MD DR: MEHRDAD/kenneth JOB#: [id number] / [id number]
[2018-06-16] MEDS: LEVOTHYROXINE 75 MCG TABLET PO SCH (05:53)
[2018-06-16 05:59] VITALS: BP 166/76
[2018-06-16] MEDS: INSULIN LISPRO 300 UNITS/3 ML INSULN.PEN. SQ SCH ×2 (07:35→11:44)
[2018-06-16] MEDS: LISINOPRIL 20 MG TABLET PO SCH (08:20)
[2018-06-16] MEDS: metFORMIN 500 MG TABLET PO SCH (08:21)
[2018-06-16] MEDS: rOPINIRole 1 MG TABLET. PO SCH ×2 (08:21→14:29)
[2018-06-16] MEDS: CARVEDILOL 12.5 MG TABLET PO SCH (08:22)
[2018-06-16] MEDS: CARBIDOPA/LEVODOPA 25/100MG TABLET PO SCH ×2 (08:22→12:15)
[2018-06-16] MEDS: lamoTRIgine 150 MG TABLET. PO SCH (08:22)
[2018-06-16] MEDS ORDERED: IV NORMAL SALINE 1,000ML 500 ML IV SCH (10:45)
[2018-06-16 10:58] VITALS: BP 146/71
[2018-06-16] MEDS: MAGNESIUM OXIDE 400 MG TABLET PO SCH (12:15)
[2018-06-16] MEDS: CYANOCOBALAMIN (VITAMIN B-12) 1,000 MCG TABLET. PO SCH (12:16)
[2018-06-16] MEDS: CHOLECALCIFEROL (VITAMIN D3) 1,000 UNIT TABLET PO SCH (12:16)
[2018-06-16] MEDS: MULTIVITAMIN with MINERAL TABLET. PO SCH (12:16)
[2018-06-16 14:27] VITALS: BP 139/67
--- NOTE | 2018-06-16 20:46 | DS ---
DATE OF DISCHARGE: 06/16/2018 HOSPITAL COURSE: A 77-year-old female in with acute mental status changes. The patient's blood sugars have come down and stayed down in good fashion. The patient still shows signs of chronic thalassemia, anemia. Otherwise, the patient has been seen by Dr. Gordon. He has discharged her, so she will follow up as an outpatient and get possibly a situation of an EEG as an outpatient. Could have been a seizure activity. In any case, the patient rested fairly good, made good progress as she felt stronger. Last blood pressure 140/70, respiratory rate 18, pulse 65, down from 100. She is afebrile. She is much more active and alert than she has been. In any case, the patient continued to be monitored carefully, make further evaluation on her as indicated per those results. ADDENDUM The patient will be discharged home. Follow up as an outpatient. See EMRAD. Diabetic diet. Follow up with Dr. Gordon. IMPRESSION: Acute mental status changes, dehydration, type 2 diabetes, history of bipolar disorder, history of Parkinson's disease, hypertension, hyperlipidemia, osteoarthritis, type 2 diabetes, depression, and early dementia. PERLA LORENZO MD DR: WALESKA/kenneth JOB#: [id number] / [id number]
--- NOTE | 2018-06-17 20:20 | PN ---
DATE: SUBJECTIVE: The patient denies any new medical or neurological complaints. She feels better and she wants to go home. OBJECTIVE: GENERAL: Well-developed, well-nourished female, not in acute distress. VITAL SIGNS: Blood pressure 139/67, respiratory rate 18, pulse is 75 regular, temperature 98.4, oxygen saturation 98% on room air. HEENT: Normocephalic, atraumatic, otherwise unremarkable. NECK: Supple, negative for carotid bruit, lymphadenopathy or thyromegaly. LUNGS: Clear to A and P. CARDIOVASCULAR: Regular rhythm, normal S1, S2. There is no S3 or S4. There is a soft systolic murmur at 1/6. ABDOMEN: Soft. Bowel sounds positive. EXTREMITIES: Negative for cyanosis, clubbing or pitting edema. NEUROLOGICAL EXAM: Mental Status: The patient is alert and oriented x 3. The speech is fluent. There is no language dysfunction. Memory, judgment and abstracting thinking are fair. The patient denies hallucination or delusion. Cranial nerves are intact. Motor examination revealed strength of 4/5 throughout. The patient had mild intermittent resting tremor of the hands. Sensory examination revealed diminished pinprick and light touch senses in patchy distributions in lower extremities. Deep tendon reflexes were symmetric and hypoactive with absent Achilles responses. Gait: The patient uses a walker for ambulation. IMPRESSION: 1. Encephalopathy - resolved, probably metabolic type due to severe hypercalcemia. 2. Multiple medical problems include Parkinson's disease, hypertension, hyperlipidemia, osteoarthritis, diabetes mellitus, depressions, and bipolar disorders. RECOMMENDATIONS: 1. Continue with current management initiated by Dr. Rogers: 2. Follow up with Dr. Gordon within 2 weeks after discharge. M Christal GORDON MD DR: MEHRDAD/kenneth JOB#: [id number] / [id number]
== END 2018-06-16 15:30 | disposition home or self-care (01) | DRG 637 ==
LOC: ER 16:05 → 1 SOUTH 18:10
PROVIDERS: ADMIT Family Medicine; ATTEND Family Medicine
DX: E11.00 Type 2 diabetes mellitus with hyperosmolarity without nonketotic hyperglycemic-hyperosmolar coma (NKHHC) (principal); G93.41 Metabolic encephalopathy; E11.65 Type 2 diabetes mellitus with hyperglycemia; D56.9 Thalassemia, unspecified; E78.00 Pure hypercholesterolemia, unspecified; E78.5 Hyperlipidemia, unspecified; E86.0 Dehydration; F31.9 Bipolar disorder, unspecified; G20 Parkinson's disease; I10 Essential (primary) hypertension; D64.9 Anemia, unspecified; M19.90 Unspecified osteoarthritis, unspecified site; F02.80 Dementia in other diseases classified elsewhere, unspecified severity, without behavioral disturbance, psychotic disturbance, mood disturbance, and anxiety; Z82.3 Family history of stroke; Z82.49 Family history of ischemic heart disease and other diseases of the circulatory system; Z83.3 Family history of diabetes mellitus; Z79.899 Other long term (current) drug therapy; Z90.49 Acquired absence of other specified parts of digestive tract
CPT/HCPCS: 36415; 70450; 71045; 80048; 80053; 81001; 82947; 84484; 85025; 87086; 93005; 96374; J1815; J2405; 97110; 97116; 97535; 99285-25; J7030

== ENCOUNTER → 2018-06-25 | Outpatient (CLI) | payer MEDICARE, BC ==
[2018-06-16 14:27] VITALS: BP 139/67
[~2018-06-25] MED LIST changes: +MAGN500C11 PO
--- NOTE | 2018-06-25 15:26 | RAD ---
ABDOMEN COMPLETE History: Bulging, right upper quadrant pain Comparison: None. Findings: Multiple sonographic images of the abdomen are submitted. Pancreatic duct is visualized up to 0.2 cm. There is a hypoechoic lesion at the junction of the body and head of pancreas about 1.2 x 1.8 x 1.4 cm with some internal echoes present. Color Doppler images of the lesion are not submitted. Visualized abdominal aortic caliber is within normal limits, scattered plaque. There is segmental visualization of the inferior cava. Common bile duct is within normal limits at 0.5 cm. Hepatic echotexture is within normal limits. Right lobe liver measures 19.3 cm longitudinal. Right kidney measured 11.1 x 6.2 x 5.4 cm without hydronephrosis. There is a small hypoechoic lesion of the mid pole about 1 x 1.2 x 1.2 cm with increased through transmission, findings of a cyst. Left kidney measured 11.4 x 4.1 x 4.3 cm, no hydronephrosis. Sonographic images were acquired of the site of concern on the right, no sonographic abnormality demonstrated. Impression: 1. There is a complex cystic lesion of the pancreas, better characterized with MRI or multiphase CT. There is nonspecific visualization of the pancreatic duct. 2. No sonographic abnormality is identified at site of concern in the right abdomen. 3. There is small right renal cyst. Electronically signed by: Cooper Owens MD (06/25/2018 3:23 PM) [email or web address]
== END | disposition home or self-care (01) ==
LOC: US 10:55
PROVIDERS: ATTEND Family Medicine
DX: G93.49 Other encephalopathy (principal); K86.2 Cyst of pancreas; N28.1 Cyst of kidney, acquired; I10 Essential (primary) hypertension; E11.319 Type 2 diabetes mellitus with unspecified diabetic retinopathy without macular edema; G20 Parkinson's disease; Z86.718 Personal history of other venous thrombosis and embolism
CPT/HCPCS: 76700

== ENCOUNTER → 2018-07-09 | Outpatient (CLI) | payer MEDICARE, BC ==
[2018-06-16 14:27] VITALS: BP 139/67
--- NOTE | 2018-07-09 16:32 | RAD ---
CT head without intravenous contrast History: Trauma to the head during fall this morning. Comparison: CT head June 13, 2018. Technique: Axial images are obtained of the head from the skull base through the vertex without IV contrast. Exposure: One or more of the following individualized dose reduction techniques were utilized for this examination: 1. Automated exposure control 2. Adjustment of the mA and/or kV according to patient size 3. Use of iterative reconstruction technique Findings: The ventricles are appropriate in size, shape, and location for the patient's age. No obvious intracranial mass, mass-effect, midline shift, hemorrhage or obvious acute infarction is identified. Basilar cisterns are patent. Mild, patchy, nonspecific white matter low-attenuation seen, probably from chronic microvascular ischemic disease. Bone windows demonstrate no acute calvarial abnormality. Incompletely seen is right maxillary sinus fluid. Impression: 1. No acute intracranial process. Please note that CT can be relatively insensitive to acute ischemic infarction for up to 24 hours after symptom onset. 2. Nonspecific white matter changes, probably from chronic microvascular ischemic disease. 3. Right maxillary fluid, incompletely visualized. Electronically signed by: Reinaldo Tang MD (07/09/2018 4:29 PM) [email or web address]
--- NOTE | 2018-07-09 17:39 | RAD ---
Right hand, 3 views, 07/09/2018: HISTORY: Fall, pain There is patchy bony demineralization. There is an oblique fracture of the proximal shaft of the proximal phalanx of the little finger. There is only slight displacement and angulation at the fracture site. There is deformity of the proximal end of the middle phalanx of the ring finger. The appearance suggests a small fracture of indeterminate age. Clinical correlation with the site of the patient's current pain is suggested. There are moderate scattered degenerative changes. No additional fracture or dislocation is evident. IMPRESSION: 1. Demineralization. 2. Acute fracture of the proximal phalanx of the little finger. 3. Fracture of the proximal end of the middle phalanx of the ring finger, of indeterminate age. Electronically signed by: Alfonso Delatorre MD (07/09/2018 5:36 PM) [facility]
== END | disposition home or self-care (01) ==
LOC: RAD 12:34
PROVIDERS: ATTEND Family Medicine
DX: S62.616A Displaced fracture of proximal phalanx of right little finger, initial encounter for closed fracture (principal); R90.82 White matter disease, unspecified; W19.XXXA Unspecified fall, initial encounter; Y93.89 Activity, other specified; Y92.89 Other specified places as the place of occurrence of the external cause; Y99.8 Other external cause status
CPT/HCPCS: 70450; 73130

== ENCOUNTER 2019-06-06 14:45 | Inpatient (IN) | payer MEDICARE, BC ==
[~2019-06-06] VITALS: Ht 165.1 cm; Wt 82.2 kg
[~2019-06-06 14:45] MED LIST changes: -AMLO10TA6 PO; +AMLO10TA8 PO; +CYAN-25 PO; -CYAN10005 PO; -FOSI40TA3 PO; +FOSI40TA4 PO; -MAGN400T3 PO; +MAGN400T5 PO
[2019-06-06] MEDS ORDERED: IV NORMAL SALINE 1,000ML 1,000 ML IV SCH (15:01)
--- NOTE | 2019-06-06 15:11 | PHYS DOC ---
Past History Past Medical History: Depression, Diabetes, High Cholesterol, Hypertension, Other Additional Past Medical Histor: Parkinson's disease Smoking: Non-smoker Alcohol Use: None Drug Use: None Adult General Chief Complaint Chief Complaint: ALTERED MENTAL STATUS HPI HPI patient is a 78-year-old female who arrives in the emergency department via EMS. The patient's states that the patient was sitting at the lunch table, this afternoon, when she dozed off and became unresponsive. He states she lost bowel and bladder function, but was not having any shaking or seizure-like activity that he was able to observe. He states that she does this every 2-3 days on an ongoing basis, but called EMS because her episodes of unresponsiveness normally last 20-30 minutes, and today the episode lasted about 40 minutes. He states that he does not think she was just taking a nap. She was admitted for an episode of unresponsiveness about a year ago, at this hospital, and so neurology. The patient reports to me that she has had an outpatient EEG and was told that she has Parkinson's disease. The patient returned to her baseline mental status, and at this time has no complaints. She is oriented 3, conversing normally, and is not having any pain. She denies any chest pain or shortness of breath, cough, or urinary symptoms. There are no alleviating or exacerbating factors to her symptoms. Review of Systems Review of Systems Constitutional: Denies fever or chills [] Eyes: Denies change in visual acuity, redness, or eye pain [] HENT: Denies nasal congestion or sore throat [] Respiratory: Denies cough or shortness of breath [] Cardiovascular: The patient denies any shortness of breath, chest pain, palpitations, or orthopnea [] GI: Denies abdominal pain, nausea, vomiting, bloody stools or diarrhea [] : Denies dysuria or hematuria [] Musculoskeletal: Denies back pain or joint pain [] Integument: Denies rash or skin lesions [] Neurologic: Denies headache, focal weakness or sensory changes [] Endocrine: Denies polyuria or polydipsia [] All other systems were reviewed and found to be within normal limits, except as documented in this note. Current Medications Current Medications Current Medications Medications (Trade) Dose Ordered Sig/Evy Start Time Stop Time Status Last Admin Dose Admin Sodium Chloride 1,000 ml @ 100 mls/hr Q10H 06/06/19 15:01 06/07/19 01:00 UNV Allergies Allergies Allergies Coded Allergies Type Severity Reaction Last Updated Verified atorvastatin Allergy Intermediate "sore upper arms" 02/16/15 Yes iodine Allergy Intermediate 09/25/15 Yes pioglitazone Allergy Mild 01/02/16 Yes Physical Exam Physical Exam PHYSICAL EXAM: CONSTITUTIONAL: Well developed, well nourished HEAD: normocephalic, atraumatic EENT: PERRL, EOMI. Conjunctivae normal color, sclerae non-icteric; moist mucous membranes. NECK: Supple, non-tender; no meningismus. LUNGS: There are some crackles at the bases bilaterally, otherwise Lungs CTA, breathing even and unlabored. Normal air movement. HEART: Regular rate and rhythm, no murmur CHEST: No deformity; non-tender ABDOMEN: The abdomen is soft, and non-tender, no masses or bruits. EXTREM: Normal ROM; no deformity, no calf tenderness. Normal pulses palpable in all extremities. There is no pedal edema. SKIN: No rash; no diaphoresis NEURO: Alert; normal speech and cognition; CN's grossly intact; strength grossly intact without focal deficit. There is a resting tremor present. BACK: No CVA TTP. Current Patient Data Lab Results Laboratory Tests Test 06/06/19 15:10 White Blood Count 10.5 x10^3/uL Red Blood Count 5.78 x10^6/uL Hemoglobin 11.7 g/dL Hematocrit 37.2 % Mean Corpuscular Volume 64 fL Mean Corpuscular Hemoglobin 20 pg Mean Corpuscular Hemoglobin Concent 31 g/dL Red Cell Distribution Width 15.7 % Platelet Count 210 x10^3/uL Neutrophils (%) (Auto) 87 % Lymphocytes (%) (Auto) 8 % Monocytes (%) (Auto) 4 % Eosinophils (%) (Auto) 1 % Basophils (%) (Auto) 1 % Neutrophils # (Auto) 9.1 x10^3uL Lymphocytes # (Auto) 0.8 x10^3/uL Monocytes # (Auto) 0.4 x10^3/uL Eosinophils # (Auto) 0.1 x10^3/uL Basophils # (Auto) 0.1 x10^3/uL Platelet Estimate Pending Prothrombin Time 11.1 SEC Prothromb Time International Ratio 1.1 Sodium Level 142 mmol/L Potassium Level 3.5 mmol/L Chloride Level 104 mmol/L Carbon Dioxide Level 31 mmol/L Anion Gap 7 Blood Urea Nitrogen 11 mg/dL Creatinine 1.1 mg/dL Estimated GFR (Cockcroft-Gault) 58.4 BUN/Creatinine Ratio 10 Glucose Level 171 mg/dL Lactic Acid Level 1.6 mmol/L Calcium Level 9.5 mg/dL Magnesium Level 1.5 mg/dL Total Bilirubin 0.8 mg/dL Aspartate Amino Transf (AST/SGOT) 24 U/L Alanine Aminotransferase (ALT/SGPT) 7 U/L Alkaline Phosphatase 85 U/L Troponin I Quantitative < 0.017 ng/mL QC-Qmu-C-Type Natriuretic Peptide 508 pg/mL Total Protein 7.0 g/dL Albumin 3.2 g/dL Albumin/Globulin Ratio 0.8 Current Medications Medications (Trade) Dose Ordered Sig/Evy Route PRN Reason Start Time Stop Time Status Last Admin Dose Admin Sodium Chloride 1,000 ml @ 100 mls/hr Q10H IV 06/06/19 15:01 06/07/19 01:00 06/06/19 15:57 EKG EKG Normal sinus rhythm at a rate of 67 beats for minute, normal axis, normal intervals, nonspecific ST/T changes are present.[] Radiology/Procedures Radiology/Procedures [PROCEDURE: PORTABLE CHEST 1V EXAM: Chest, single view. HISTORY: Altered mental status. Syncope. COMPARISON: 06/13/2018. FINDINGS: A frontal view of the chest is obtained. There is no infiltrate, pleural effusion or pneumothorax. The cardiac silhouette is stable in size. IMPRESSION: No acute pulmonary finding. ] PROCEDURE: CT HEAD WO CONTRAST CT HEAD WO CONTRAST History: Altered mental status Comparison: None. Technique: Noncontrast CT imaging was performed of the head. Exposure: One or more of the following individualized dose reduction techniques were utilized for this examination: 1. Automated exposure control 2. Adjustment of the mA and/or kV according to patient size 3. Use of iterative reconstruction technique. Findings: There is mild motion No acute extra-axial or parenchymal hemorrhage is identified. There is no significant intra-axial mass effect, midline shift, or extra-axial fluid collection. The jaimes-white differentiation of the major vascular territories is preserved. Ventricular size is stable, proportionate to the sulcal spaces. There is again mild generalized supratentorial involutional change. There is again multifocal at least mild ill-defined low-density of the supratentorial parenchyma bilaterally. The mastoid air cells and the visualized paranasal sinuses are aerated. No acute calvarial abnormality is identified. There is atherosclerotic calcification of the carotid siphons bilaterally. Impression: 1. No acute intracranial abnormality is identified. There is again scattered ill-defined low-density of the supratentorial parenchyma more commonly due to chronic microvascular ischemic disease in a patient this age. If there is suspicion for evolving or acute ischemia, follow-up CT or MRI may be beneficial. Course & Med Decision Making Course & Med Decision Making Pertinent Labs and Imaging studies reviewed. (See chart for details) []5:00 PM: The patient's condition remains stable. I discussed the case with her PCP, Dr. Cole, and the patient will be admitted for further observation and evaluation. I also spoke with Dr. Gordon, patient's neurologist. Urinalysis is currently pending. Dragon Disclaimer Dragon Disclaimer This electronic medical record was generated, in whole or in part, using a voice recognition dictation system. Departure Departure: Impression: Primary Impression: Syncopal episodes Additional Impressions: Parkinson disease Change in mental status Disposition: ADMITTED INPATIENT Admitting Physician: Antonio Lorenzo Condition: STABLE Referrals: ANTONIO LORENZO MD (PCP) Problem Qualifiers DREW CHOW MD Jun 06, 2019 15:11
[2019-06-06 15:32] LABS: BASO # 0.1 x10^3/uL (0.0-0.2); BASO % 1 % (0-3); EOS # 0.1 x10^3/uL (0.0-0.7); EOS % 1 % (0-3); HEMATOCRIT 37.2 % (36.0-47.0); HEMOGLOBIN 11.7 g/dL (12.0-15.5); LYMPH # 0.8 x10^3/uL (1.0-4.8); LYMPH % 8 % (24-48); MEAN CORPUSCULAR HEMOGLOBIN 20 pg (25-35); MEAN CORPUSCULAR HGB CONC 31 g/dL (31-37); MEAN CORPUSCULAR VOLUME 64 fL (79-100); MONO # 0.4 x10^3/uL (0.0-1.1); MONO % 4 % (0-9); NEUT # 9.1 x10^3uL (1.8-7.7); NEUT % 87 % (31-73); PLATELET COUNT 210 x10^3/uL (140-400); RED BLOOD COUNT 5.78 x10^6/uL (3.50-5.40); RED CELL DISTRIBUTION WIDTH 15.7 % (11.5-14.5); WHITE BLOOD COUNT 10.5 x10^3/uL (4.0-11.0)
--- NOTE | 2019-06-06 15:44 | RAD ---
CT HEAD WO CONTRAST History: Altered mental status Comparison: None. Technique: Noncontrast CT imaging was performed of the head. Exposure: One or more of the following individualized dose reduction techniques were utilized for this examination: 1. Automated exposure control 2. Adjustment of the mA and/or kV according to patient size 3. Use of iterative reconstruction technique. Findings: There is mild motion No acute extra-axial or parenchymal hemorrhage is identified. There is no significant intra-axial mass effect, midline shift, or extra-axial fluid collection. The jaimes-white differentiation of the major vascular territories is preserved. Ventricular size is stable, proportionate to the sulcal spaces. There is again mild generalized supratentorial involutional change. There is again multifocal at least mild ill-defined low-density of the supratentorial parenchyma bilaterally. The mastoid air cells and the visualized paranasal sinuses are aerated. No acute calvarial abnormality is identified. There is atherosclerotic calcification of the carotid siphons bilaterally. Impression: 1. No acute intracranial abnormality is identified. There is again scattered ill-defined low-density of the supratentorial parenchyma more commonly due to chronic microvascular ischemic disease in a patient this age. If there is suspicion for evolving or acute ischemia, follow-up CT or MRI may be beneficial. Electronically signed by: Cooper Owens MD (06/06/2019 3:41 PM) [id number]
--- NOTE | 2019-06-06 15:45 | RAD ---
EXAM: Chest, single view. HISTORY: Altered mental status. Syncope. COMPARISON: 06/13/2018. FINDINGS: A frontal view of the chest is obtained. There is no infiltrate, pleural effusion or pneumothorax. The cardiac silhouette is stable in size. IMPRESSION: No acute pulmonary finding. Electronically signed by: Sierra Aleman MD (06/06/2019 3:43 PM) [email or web address]
[2019-06-06 15:56] LABS: ALBUMIN 3.2 g/dL (3.4-5.0); ALBUMIN/GLOBULIN RATIO 0.8 (1.0-1.7); CALCIUM 9.5 mg/dL (8.5-10.1); CREATININE 1.1 mg/dL (0.6-1.0); GFR 58.4; MAGNESIUM 1.5 mg/dL (1.8-2.4); POTASSIUM 3.5 mmol/L (3.5-5.1); TOTAL BILIRUBIN 0.8 mg/dL (0.2-1.0)
--- NOTE | 2019-06-06 16:07 | EKG ---
[address] [address] Test Date: 2019-06-06 Test Time: 14:55:09 Pat Name: [facility] Department: Room: Gender: F Lead Javascript Engineer: : 1940 Requested By: DREW CHOW Order Number: [id number] Reading MD: Jaydon Hamilton MD Measurements Intervals [place] Rate: 67 P: 44 NV: 178 QRS: 23 QRSD: 76 T: 53 QT: 400 QTc: 426 Interpretive Statements SINUS RHYTHM Electronically Signed On 06-07-2019 16:33:09 CDT by Jaydon Hamilton MD
[2019-06-06 17:13] LABS: BACTERIA,URINE MANY /HPF (0-FEW); BILIRUBIN,URINE NEG (NEG); CLARITY,URINE HAZY; COLOR,URINE YELLOW; GLUCOSE,URINE NEG (NEG); NITRITE,URINE NEG (NEG); SQUAMOUS EPITHELIAL CELL,UR OCC /LPF; UROBILINOGEN,URINE 0.2 mg/dL (0.2 mg/dL)
[2019-06-06 19:07] LABS: HYPOCHROMIA MOD; MICROCYTOSIS MOD; PLT ESTIMATE ADEQUATE (ADEQUATE)
[2019-06-06] MEDS ORDERED: lamoTRIgine 100 MG TABLET. PO STA (20:36)
[2019-06-06] MEDS ORDERED: rOPINIRole 1 MG TABLET. PO ONE ×2 (20:45→22:00)
[2019-06-06] MEDS ORDERED: SIMVASTATIN 40 MG TABLET. PO ONE (21:00)
[2019-06-06] MEDS ORDERED: INSULIN GLARGINE SYRINGE. SQ SCH (21:00)
[2019-06-06] MEDS ORDERED: CARBIDOPA/LEVODOPA 25/100MG TABLET PO SCH (21:15)
[2019-06-06] MEDS ORDERED: metFORMIN 500 MG TABLET PO ONE (21:30)
[2019-06-06] MEDS ORDERED: CARVEDILOL 12.5 MG TABLET PO ONE (21:30)
[2019-06-06] MEDS ORDERED: DONEPEZIL HCL 5 MG TABLET. PO ONE (21:30)
[2019-06-06] MEDS ORDERED: CARBIDOPA/LEVODOPA CR 25/100MG TABLET.SA PO ONE (21:30)
[2019-06-06] MEDS: ARIPiprazole 5 MG TABLET PO SCH (23:06)
[2019-06-06] MEDS: CARBIDOPA/LEVODOPA CR 25/100MG TABLET.SA PO SCH (23:30)
[2019-06-07] MEDS ORDERED: DEXTROSE 50% 25 GM / 50ML DISP.SYRIN. IV PRN (05:15)
[2019-06-07] MEDS ORDERED: INSU100I13 SQ (05:37)
[2019-06-07] MEDS ORDERED: ROPI0.5T PO (05:41)
[2019-06-07] MEDS: INSULIN LISPRO 300 UNITS/3 ML VIAL. SQ SCH ×4 (08:00→21:28)
[2019-06-07 08:38] VITALS: BP 160/86
[2019-06-07] MEDS: MAGNESIUM CHLORIDE ER 64 MG TABLET.ER PO SCH ×2 (09:00→12:20)
[2019-06-07] MEDS ORDERED: ARIPiprazole 5 MG TABLET PO SCH (09:00)
[2019-06-07] MEDS ORDERED: ACETAMINOPHEN 325 MG TABLET PO PRN (09:15)
[2019-06-07] MEDS ORDERED: DOCUSATE SODIUM 100 MG CAPSULE PO PRN (09:15)
[2019-06-07] MEDS ORDERED: POLYETHYLENE GLYCOL 3350 17 GM PACKET. PO PRN (09:15)
[2019-06-07] MEDS ORDERED: MAGNESIUM HYDROXIDE 2,400 MG/30 ML ORAL.SUSP. PO PRN (09:30)
[2019-06-07] MEDS ORDERED: lamoTRIgine 100 MG TABLET. PO SCH (09:30)
[2019-06-07] MEDS ORDERED: MAG HYDROX/AL HYDROX/SIMETH 30 ML ORAL.SUSP PO PRN (09:30)
[2019-06-07 09:45] VITALS: BP_SYST 156; BP_SYST 162; BP_DIAS 75; BP_DIAS 76
[2019-06-07 09:46] VITALS: BP 153/67
[2019-06-07] MEDS ORDERED: FLU VAX QS 2019-20 (36MOS+)/PF 0.5 ML SYRINGE. VAX IM ONE (10:00)
[2019-06-07] MEDS: LEVOTHYROXINE 75 MCG TABLET PO SCH (11:06)
[2019-06-07] MEDS: rOPINIRole 1 MG TABLET. PO SCH ×3 (11:06→21:26)
[2019-06-07] MEDS: CARVEDILOL 12.5 MG TABLET PO SCH ×2 (11:06→17:26)
[2019-06-07] MEDS: ASPIRIN ENTERIC COATED 81 MG TABLET.DR. PO SCH (11:06)
[2019-06-07] MEDS: LISINOPRIL 20 MG TABLET PO SCH (11:07)
[2019-06-07] MEDS: CARBIDOPA/LEVODOPA 25/100MG TABLET PO SCH ×4 (11:07→21:28)
[2019-06-07] MEDS: metFORMIN 500 MG TABLET PO SCH ×2 (11:14→17:25)
--- NOTE | 2019-06-07 11:57 | HP ---
ADMIT DATE: 06/07/2019 HISTORY OF PRESENT ILLNESS: A 78-year-old female came in through the Emergency Room, apparently been having episodes at home with passing out for 20-30, 30-40 minutes. This had occurred about several times over the last several weeks. The family notes no shaking or seizure-like activity, but was able to observe her. The patient otherwise was basically unresponsive and then woke up. Apparently, finally her called EMS, brought her into the Emergency Room, interesting enough when she came in through the Emergency Room. She was alert and oriented x 3, conversing normally, did not have any pain, did not have any postictal sensations, so the patient was admitted for possible seizure activity versus syncope. The patient has multiple other medical issues that are fairly significant including severe Parkinson's disease, retinopathy. She has had history of encephalopathy, multiple urinary tract infections, Parkinson's disease, rheumatoid arthritis, DVTs, cholecystectomy, fibroid, urinary tract infections, osteoarthritis, type 2 diabetes, poorly controlled, orthopedic surgery, thalassemia, psychiatric problems on [facility] in February 2015, bipolar disease, depression, anemia, venous insufficiency and pneumococcal vaccinations. FAMILY HISTORY: Hypertension, diabetes in father and mother and cardiovascular disease in father. ALLERGIES: ATORVASTATIN, IODINE and PIOGLITAZONE. MEDICATIONS: The patient's reconciliation of medications have been taken. Partly, she takes Calciferol 5 mg, pravastatin 80, carvedilol 25 b.i.d., nifedipine 60, fosinopril 40, aspirin, Tylenol, lamotrigine. Lamictal 150 b.i.d., carbidopa/levodopa, Requip, polyethylene glyceride, metformin 1000 b.i.d., levothyroxine, vitamin B complex, vitamin D, multivitamins, cranberry extract and Krill. SOCIAL HISTORY: No smoking, alcohol or drug use. The patient is a full code. Lives with her , has a very caring son who takes excellent care of her. REVIEW OF SYSTEMS: The patient has a resting tremor, but otherwise she presently denies any headaches, visual changes, blurred vision, double vision. Denies any chest pain, shortness of breath, abdominal pain. Does have some diarrhea. The patient denies any problems with urination. Neurologically stable. The patient does have incontinence when she has these episodes. Otherwise, she is very weak. She has to use a walker to walk and neurologically alert and oriented, baseline for her. She does have some parkinsonian-type speech problems. OBJECTIVE: VITAL SIGNS: Blood pressure 160/86, respiratory rate 20, pulse 65, afebrile. GENERAL: This is a pleasant -English female with no apparent distress. HEENT: The patient's head has a tremor and there is a definite resting tremor in her hands. Otherwise, the head was atraumatic, normocephalic. Eyes: PERRLA without jaundice. The mouth and throat were normal. NECK: Supple, no thyromegaly. LUNGS: Clear to auscultation. CARDIOVASCULAR: Regular sinus rhythm, S1, S2, without murmur, rub, thrill, or extra heart sounds. ABDOMEN: Soft, nontender, no rebound or any guarding. Positive bowel sounds, no hepatosplenomegaly was noted. EXTREMITIES: No clubbing, cyanosis, nor edema. Good pulses noted distally. NEUROLOGIC: The patient neurologically alert and oriented, seems like she does have some trouble with her speech. As noted, she has marked rigidity in her arms and marked resting tremor and generalized weakness to the musculoskeletal system. LABORATORY DATA: Look basically stable, hemoglobin slightly low at 0.737. She has thalassemia. The patient's chemistries otherwise were basically unremarkable. She has diabetes. Sodium and potassium 142 and 3.5, BUN and creatinine 11 and 1.1, glucose 171. Magnesium slightly low, put on Slow-Mag. The patient's BNP slightly elevated at 508. Cardiac enzymes negative. Albumin slightly low, moderate protein insufficiency. The patient had 11-20 white blood cells in her urine. We will do a culture on her urine. The patient otherwise will continue to be monitored carefully here in the ICU for any seizure activity, monitor her blood sugars, adjust her magnesium and increase her dietary nutrition. PT, OT consult with Cardiology as well as Dr. Gordon, noted neurologist, for his expertise. Otherwise, we will continue to monitor accordingly and make further evaluation on her as indicated to see if this is a syncopal-type episode versus seizure activity. IMPRESSION: Fecal urinary incontinence, marked parkinsonian disease, rheumatoid arthritis, thalassemia minor and for chronic anemia. She will be continued to be monitored here in the ICU, make further evaluation on her as indicated per those fine specialists. PERLA LORENZO MD DR: Ananth JOB#: [id number] / [id number]
[2019-06-07] MEDS: MULTIVITAMIN with MINERAL TABLET. PO SCH (12:03)
[2019-06-07] MEDS: CYANOCOBALAMIN (VITAMIN B-12) 1,000 MCG TABLET. PO SCH (12:03)
[2019-06-07] MEDS: CHOLECALCIFEROL (VITAMIN D3) 1,000 UNIT TABLET PO SCH (12:03)
[2019-06-07] MEDS: OMEGA-3 FATTY ACIDS/FISH OIL 1,000 MG CAPSULE. PO SCH (12:03)
[2019-06-07] MEDS ORDERED: MAGNESIUM OXIDE 400 MG TABLET PO SCH (12:15)
[2019-06-07 15:13] VITALS: BP 121/60
[2019-06-07] MEDS: lamoTRIgine 100 MG TABLET. PO SCH (17:26)
[2019-06-07 18:34] VITALS: BP 117/52
[2019-06-07] MEDS ORDERED: CARBIDOPA/LEVODOPA CR 25/100MG TABLET.SA PO SCH (21:00)
[2019-06-07] MEDS ORDERED: INSULIN GLARGINE SYRINGE. SQ SCH (21:00)
[2019-06-07] MEDS: ARIPiprazole 5 MG TABLET PO SCH (21:26)
[2019-06-07] MEDS: DONEPEZIL HCL 5 MG TABLET. PO SCH (21:26)
[2019-06-07] MEDS: SIMVASTATIN 40 MG TABLET. PO SCH (21:26)
[2019-06-07] MEDS: CARBIDOPA/LEVODOPA CR 25/100MG TABLET.SA PO SCH (21:27)
[2019-06-07] MEDS: INSULIN GLARGINE SYRINGE. SQ SCH (21:28)
[2019-06-08 00:06] LABS: HEMOGLOBIN A1C 6.9 % (4.8-5.6)
[2019-06-08] MEDS: LEVOTHYROXINE 75 MCG TABLET PO SCH (05:57)
[2019-06-08 06:18] LABS: BASO % 1 % (0-3); EOS # 0.1 x10^3/uL (0.0-0.7); EOS % 2 % (0-3); LYMPH # 1.1 x10^3/uL (1.0-4.8); LYMPH % 17 % (24-48); MEAN CORPUSCULAR HEMOGLOBIN 20 pg (25-35); MEAN CORPUSCULAR HGB CONC 31 g/dL (31-37); MEAN CORPUSCULAR VOLUME 64 fL (79-100); MONO # 0.4 x10^3/uL (0.0-1.1); MONO % 6 % (0-9); NEUT % 75 % (31-73); PLATELET COUNT 197 x10^3/uL (140-400); RED BLOOD COUNT 4.97 x10^6/uL (3.50-5.40); RED CELL DISTRIBUTION WIDTH 15.7 % (11.5-14.5); WHITE BLOOD COUNT 6.7 x10^3/uL (4.0-11.0)
[2019-06-08 06:25] VITALS: BP 156/67
[2019-06-08 06:26] LABS: CALCIUM 8.9 mg/dL (8.5-10.1); CREATININE 1.1 mg/dL (0.6-1.0); GFR 58.4
[2019-06-08] MEDS: CARVEDILOL 12.5 MG TABLET PO SCH ×2 (08:12→17:02)
[2019-06-08] MEDS: metFORMIN 500 MG TABLET PO SCH ×2 (08:12→17:02)
[2019-06-08] MEDS: INSULIN LISPRO 300 UNITS/3 ML VIAL. SQ SCH ×4 (08:17→21:00)
--- NOTE | 2019-06-08 08:50 | PDOC ---
PROVIDER NOTE PROVIDER NOTE PROVIDER NOTE Cardiology consultation note: Reason for consultation syncope History of present illness 78-year-old woman with past medical history as noted below who presents to the hospital in the setting of recurrent syncope. In speaking with her it appears that she became flaccid while eating and was unable to be woken up for approximately 20 minutes or so. The patient and the family reports that this has been going on for several months to years and no obvious etiology has been found. The patient denies any associated chest pain, dyspnea, orthopnea or PND. She does have a history of parkinsonism and has been on a walker to get around at home. She's mostly sedentary. Past history #1 Parkinson's disease Based on review from her primary care physician she appears to have had multiple psychiatric issues, DVTs and other medical problems Social history no alcohol, tobacco or illicit drug use Family history is noncontributory Review systems as noted above unless otherwise mentioned Allergies reviewed and include atorvastatin, iodine and pioglitazone Physical examination Vital signs stable, orthostatics negative The patient appeared well nourished and normally developed. Head exam is unremarkable. No scleral icterus or corneal arcus noted. Neck is without jugular venous distension, thyromegaly, or carotid bruits. Carotid upstrokes are brisk bilaterally. Lungs are clear to auscultation and percussion. Cardiac exam reveals the PMI to be normally sized and situated. Rhythm is regular. First and second heart sounds normal. No murmurs, rubs or gallops. Abdominal exam reveals normal bowel sounds, no masses, no organomegaly and no aortic enlargement. Extremities are nonedematous and both femoral and pedal pulses are normal. Msk: No traumua Neuro: No focal deficits Laboratory studies are unremarkable EKG demonstrates sinus rhythm Impression: 1. Recurrent syncope of unclear etiology mostly related to neuropathic issues and parkinsonism Recommendations: 1. Could consider a implantable loop recorder but no further cardiac testing necessary at this time. YOLANDA VELAZQUEZ MD Jun 08, 2019 08:49
--- NOTE | 2019-06-08 08:54 | PDOC ---
GAIL CHEN THERAPY COORDINATOR 06/08/19 0854: CARDIO Progress Notes Date & Time Date of Service DATE: 06/08/19 TIME: 08:50 Time of Evaluation 08:50 Subjective Notes No chest pain, dizziness, shortness of breath. No syncopal episode since admission Vitals Vitals Vital Signs Date Time Temp Pulse Resp B/P (MAP) Pulse Ox O2 Delivery O2 Flow Rate FiO2 06/08/19 08:17 73 156/67 06/08/19 06:25 98.4 20 95 Room Air Weight Weight [ ] Input and Output I.O. Intake and Output 06/08/19 06:59 Intake Total 610 ml Output Total 650 ml Balance -40 ml Intake Oral 610 ml Output Urine Total 650 ml # Bowel Movements 1 Laboratory Labs Laboratory Tests Test 06/06/19 15:10 06/06/19 16:32 06/06/19 18:42 06/06/19 22:34 White Blood Count 10.5 x10^3/uL (4.0-11.0) Red Blood Count 5.78 x10^6/uL (3.50-5.40) Hemoglobin 11.7 g/dL (12.0-15.5) Hematocrit 37.2 % (36.0-47.0) Mean Corpuscular Volume 64 fL (79-100) Mean Corpuscular Hemoglobin 20 pg (25-35) Mean Corpuscular Hemoglobin Concent 31 g/dL (31-37) Red Cell Distribution Width 15.7 % (11.5-14.5) Platelet Count 210 x10^3/uL (140-400) Neutrophils (%) (Auto) 87 % (31-73) Lymphocytes (%) (Auto) 8 % (24-48) Monocytes (%) (Auto) 4 % (0-9) Eosinophils (%) (Auto) 1 % (0-3) Basophils (%) (Auto) 1 % (0-3) Neutrophils # (Auto) 9.1 x10^3uL (1.8-7.7) Lymphocytes # (Auto) 0.8 x10^3/uL (1.0-4.8) Monocytes # (Auto) 0.4 x10^3/uL (0.0-1.1) Eosinophils # (Auto) 0.1 x10^3/uL (0.0-0.7) Basophils # (Auto) 0.1 x10^3/uL (0.0-0.2) Platelet Estimate Adequate (ADEQUATE) Hypochromasia Mod Microcytosis Mod Prothrombin Time 11.1 SEC (9.4-11.4) Prothromb Time International Ratio 1.1 (0.9-1.1) Sodium Level 142 mmol/L (136-145) Potassium Level 3.5 mmol/L (3.5-5.1) Chloride Level 104 mmol/L (98-107) Carbon Dioxide Level 31 mmol/L (21-32) Anion Gap 7 (6-14) Blood Urea Nitrogen 11 mg/dL (7-20) Creatinine 1.1 mg/dL (0.6-1.0) Estimated GFR (Cockcroft-Gault) 58.4 BUN/Creatinine Ratio 10 (6-20) Glucose Level 171 mg/dL (70-99) Hemoglobin A1c 6.9 % (4.8-5.6) Lactic Acid Level 1.6 mmol/L (0.4-2.0) Calcium Level 9.5 mg/dL (8.5-10.1) Magnesium Level 1.5 mg/dL (1.8-2.4) Total Bilirubin 0.8 mg/dL (0.2-1.0) Aspartate Amino Transf (AST/SGOT) 24 U/L (15-37) Alanine Aminotransferase (ALT/SGPT) 7 U/L (14-59) Alkaline Phosphatase 85 U/L (46-116) Troponin I Quantitative < 0.017 ng/mL (0-0.055) LU-Yrg-Q-Type Natriuretic Peptide 508 pg/mL (0-449) Total Protein 7.0 g/dL (6.4-8.2) Albumin 3.2 g/dL (3.4-5.0) Albumin/Globulin Ratio 0.8 (1.0-1.7) Thyroid Stimulating Hormone (TSH) 5.110 uIU/mL (0.358-3.740) Urine Collection Type U cath Urine Color Yellow Urine Clarity Hazy Urine pH 6.0 Urine Specific [place] 1.020 Urine Protein 100 mg/dl (NEG-TRACE) Urine Glucose (UA) Neg mg/dL (NEG) Urine Ketones (Stick) Neg mg/dL (NEG) Urine Blood Small (NEG) Urine Nitrite Neg (NEG) Urine Bilirubin Neg (NEG) Urine Urobilinogen Dipstick 0.2 mg/dL (0.2 mg/dL) Urine Leukocyte Esterase Trace (NEG) Urine RBC 1-2 /HPF (0-2) Urine WBC 11-20 /HPF (0-4) Urine Squamous Epithelial Cells Occ /LPF Urine Bacteria Many /HPF (0-FEW) Glucose (Fingerstick) 164 mg/dL (70-99) 202 mg/dL (70-99) Test 06/07/19 02:44 06/07/19 07:55 06/07/19 11:23 06/07/19 16:31 Glucose (Fingerstick) 117 mg/dL (70-99) 121 mg/dL (70-99) 198 mg/dL (70-99) 207 mg/dL (70-99) Test 06/07/19 21:04 06/08/19 05:48 06/08/19 07:34 Glucose (Fingerstick) 207 mg/dL (70-99) 151 mg/dL (70-99) White Blood Count 6.7 x10^3/uL (4.0-11.0) Red Blood Count 4.97 x10^6/uL (3.50-5.40) Hemoglobin 10.0 g/dL (12.0-15.5) Hematocrit 32.0 % (36.0-47.0) Mean Corpuscular Volume 64 fL (79-100) Mean Corpuscular Hemoglobin 20 pg (25-35) Mean Corpuscular Hemoglobin Concent 31 g/dL (31-37) Red Cell Distribution Width 15.7 % (11.5-14.5) Platelet Count 197 x10^3/uL (140-400) Neutrophils (%) (Auto) 75 % (31-73) Lymphocytes (%) (Auto) 17 % (24-48) Monocytes (%) (Auto) 6 % (0-9) Eosinophils (%) (Auto) 2 % (0-3) Basophils (%) (Auto) 1 % (0-3) Neutrophils # (Auto) 5.0 x10^3uL (1.8-7.7) Lymphocytes # (Auto) 1.1 x10^3/uL (1.0-4.8) Monocytes # (Auto) 0.4 x10^3/uL (0.0-1.1) Eosinophils # (Auto) 0.1 x10^3/uL (0.0-0.7) Basophils # (Auto) 0.0 x10^3/uL (0.0-0.2) Sodium Level 141 mmol/L (136-145) Potassium Level 4.0 mmol/L (3.5-5.1) Chloride Level 105 mmol/L (98-107) Carbon Dioxide Level 26 mmol/L (21-32) Anion Gap 10 (6-14) Blood Urea Nitrogen 17 mg/dL (7-20) Creatinine 1.1 mg/dL (0.6-1.0) Estimated GFR (Cockcroft-Gault) 58.4 Glucose Level 166 mg/dL (70-99) Calcium Level 8.9 mg/dL (8.5-10.1) Physical Exams HEENT: Neck Supple W Full Motion Chest: Symmetric Lungs: Clear to Auscultation Heart: S1S2, RRR Abdomen: Soft N/T Extremities: Other Neurology: alert, oriented, follow commands Assessment Assessment 1. Recurrent syncope; etiology uncertain. No acute events on telel this far 2. Hypertension; controlled overall 3. Hyperlipidemia; statin therapy 4. Hypomagnesemia 5. Hypothyroidism 6. Parkinson's Disease 7. Diabetes, II Recommendations Increase activities and monitor tele Replace Mg Consider outpatient event monitor versus loop recorder Supportive care Sees Dr. Aguilar at [facility] YOLANDA VELAZQUEZ MD 06/08/19 1649: CARDIO Progress Notes Plan Plan Pt. seen and examined. Agree with above RN ANESTHETIST note. NO acute events. No tele abnormalities. Normal exam. Ok to DC. Will notify Dr Aguilar. No clear cardiac source of syncope. GAIL CHEN APRN Jun 08, 2019 08:54 YOLANDA VELAZQUEZ MD Jun 08, 2019 16:49
[2019-06-08] MEDS ORDERED: FLU VAX QS 2019-20 (36MOS+)/PF 0.5 ML SYRINGE. VAX IM ONE (09:00)
[2019-06-08] MEDS: MAGNESIUM CHLORIDE ER 64 MG TABLET.ER PO SCH (09:03)
[2019-06-08] MEDS: rOPINIRole 1 MG TABLET. PO SCH ×3 (09:03→21:50)
[2019-06-08] MEDS: ASPIRIN ENTERIC COATED 81 MG TABLET.DR. PO SCH (09:04)
[2019-06-08] MEDS: lamoTRIgine 100 MG TABLET. PO SCH ×2 (09:04→17:02)
[2019-06-08] MEDS: CARBIDOPA/LEVODOPA 25/100MG TABLET PO SCH ×4 (09:05→21:49)
[2019-06-08] MEDS: LISINOPRIL 20 MG TABLET PO SCH (09:06)
[2019-06-08] MEDS ORDERED: MAGNESIUM SULFATE 2GM 50 ML IV ONE (10:00)
[2019-06-08 10:33] VITALS: BP 161/69
[2019-06-08 10:34] VITALS: BP_SYST 167; BP_SYST 172; BP_DIAS 70; BP_DIAS 80
[2019-06-08] MEDS: CHOLECALCIFEROL (VITAMIN D3) 1,000 UNIT TABLET PO SCH (11:59)
[2019-06-08] MEDS: CYANOCOBALAMIN (VITAMIN B-12) 1,000 MCG TABLET. PO SCH (11:59)
[2019-06-08] MEDS: OMEGA-3 FATTY ACIDS/FISH OIL 1,000 MG CAPSULE. PO SCH (11:59)
[2019-06-08] MEDS: MULTIVITAMIN with MINERAL TABLET. PO SCH (11:59)
[2019-06-08] MEDS ORDERED: MAGNESIUM OXIDE 400 MG TABLET PO SCH (12:00)
[2019-06-08 15:38] VITALS: BP 124/58
[2019-06-08 19:16] VITALS: BP 117/56
--- NOTE | 2019-06-08 21:02 | CONS ---
DATE OF CONSULTATION: 06/07/2019 REASON FOR CONSULTATION: Rule out seizure versus syncope. HISTORY OF PRESENT ILLNESS: This is a 78-year-old right-handed -[place] female who was admitted through Emergency Room today after she was found unresponsive with urinary and fecal incontinence. According to the , the patient has had similar several episodes in the last few weeks when she passed out for 20-30 minutes, then she became alert and oriented without having any seizure-like activities, but on the day of admission, the patient passed out for approximately 30-40 minutes. Again, the patient did not have any seizure activity or postictal confusion or disorientation. In the Emergency Room, the patient was found to be oriented and back to her baseline. The patient has had underlying multiple psychiatric problems including anxiety and bipolar disorder. Currently, she denies headaches, visual disturbances, nausea, vomiting, chest pain, shortness of breath or palpitation, dysarthria, dysphagia. She complains of generalized weakness and she uses a walker for ambulation. The patient is known to me from outpatient visit. She has had Parkinson disease and diabetic peripheral neuropathy. She was [facility] the past because of depressions and bipolar disorder. The patient told me today that her spells described as loss of consciousness, but she continues to hear people talking to her, but she was not able to respond verbally. The patient did have an EEG in my office in the past, which showed diffuse cerebral dysfunction. The patient admitted to memory loss and possible early dementia. Initial nonenhanced head CT scan revealed no acute intracranial process, but showed chronic small vessel ischemic changes. PAST MEDICAL HISTORY: Significant for diabetic retinopathy, diabetic peripheral neuropathy, Parkinson's disease, presented with resting tremor of the upper extremities, more prominent on the right side along with increased rigidity of the lower extremities, hyperlipidemia, deep venous thrombosis, frequent urinary tract infections and urinary incontinence, osteoarthritis, thalassemia, multiple psychiatric problems including anxiety, depressions, and bipolar disorder, anemia and history of syncope, rheumatoid arthritis, hypothyroidism, vitamin D deficiency. PAST SURGICAL HISTORY: Consistent with cholecystectomy, right knee surgery, abdominal surgery to remove fibroid. FAMILY HISTORY: Father has hypertension and heart disease. Mother had diabetes mellitus. SOCIAL HISTORY: The patient denies smoking, alcohol drinking, or illicit drug use. She is . CURRENT MEDICATIONS: Simvastatin, insulin, ropinirole, donepezil, lamotrigine, fish oil, vitamin D, vitamin B12, metformin, lisinopril, carvedilol, carbidopa/levodopa, aspirin, nifedipine, stool softener, Tylenol, magnesium chloride, and Abilify. ALLERGIES: LIPITOR, IODINE and PIOGLITAZONE. REVIEW OF SYSTEMS: A 10-point review of system was performed as mentioned above in history of present illness consistent with recurrent episode of prolonged loss of consciousness of unknown etiology without evidence of seizure-like activities or postictal confusion. PHYSICAL EXAMINATION: GENERAL: Well-developed, well-nourished female, not in acute distress. VITAL SIGNS: Blood pressure 160/86, respiratory rate 20, pulse is 65 and regular, oxygen saturation is 97%, and temperature 98.5. HEENT: Normocephalic, atraumatic, otherwise unremarkable. NECK: Supple. Negative for carotid bruit, lymphadenopathy or thyromegaly. LUNGS: Clear to A and P. CARDIOVASCULAR: Regular rate and rhythm, normal S1, S2. There is no S3, S4 or murmur. ABDOMEN: Soft. Bowel sounds positive. EXTREMITIES: Negative for cyanosis, clubbing or pitting edema. NEUROLOGICAL EXAMINATION: 1. Mental Status: The patient is alert and oriented x 3. The speech is fluent. There is no language dysfunction. The patient recalls 2/3 immediately and after 1 and 3 minutes. Judgment and abstracting thinking are normal. The patient denies hallucination or delusion. 2. Cranial nerves: Visual alberts are full. The pupils are reactive to light and accommodation. The extraocular movements are intact. There is no nystagmus. There is no facial motor or sensory deficit. Hearing is intact bilaterally. The palate is elevated symmetrically. Sternocleidomastoid muscles are powerful bilaterally. The patient shrugs her shoulders symmetrically and protrudes her tongue in the midline without fasciculation or atrophy. 3. Motor: No focal muscle bulk was seen. The tone is normal. The strength is 4/5 throughout. 4. Sensory examination revealed diminished pinprick and light touch senses in patchy distributions in both distal lower extremities. 5. Deep tendon reflexes were asymmetric and hypoactive with absent Achilles responses. 6. Gait not tested. LABORATORY DATA: CBC revealed 10.5 thousand, hemoglobin 11.7, hematocrit 37.2, platelet count 210,000. Chemistry revealed sodium of 142, potassium 3.5, chloride 104, CO2 of 31, BUN 11, creatinine 1.1, glucose 171. Hemoglobin A1c is 5.7. Lactic acid 1.6, calcium 9.5, magnesium is 1.5. Iron is low at 39. Liver enzymes are normal with low ALT. Troponin level is normal. Vitamin B12 is normal at 751. Vitamin D is low at 10. TSH is high at 5.1 with normal T4 and T3. Urinalysis: Trace leukocyte esterase with white blood cells of 11-20 and many bacteria. Urine drug screen is negative. IMPRESSION: 1. Recurrent episode of loss of consciousness without evidence of seizure-like activities of uncertain etiology, as the patient has had a prolonged spells which ruled out syncope and not typical seizure-like activities. 2. Multiple medical problems including advanced Parkinson disease, frequent urinary tract infections and possible recent wound, anemia of iron deficiency with history of thalassemia, rheumatoid arthritis and osteoarthritis, diabetic retinopathy and peripheral neuropathy, hypothyroidism, multiple psychiatric problems includes depressions, bipolar disorder, and anxiety, possible early dementia. RECOMMENDATIONS: 1. Continue with current home medication for Parkinson disease. 2. Physical therapy evaluation. 3. Continue observation, rule out any recurrent seizure-like activities or syncopal attack. 4. We will arrange for outpatient electroencephalogram and Cardiology consult. M Christal OSORIO MD DR: MEHRDAD/kenneth JOB#: [id number] / [id number]
[2019-06-08] MEDS: ARIPiprazole 5 MG TABLET PO SCH (21:49)
[2019-06-08] MEDS: SIMVASTATIN 40 MG TABLET. PO SCH (21:49)
[2019-06-08] MEDS: CARBIDOPA/LEVODOPA CR 25/100MG TABLET.SA PO SCH (21:49)
[2019-06-08] MEDS: DONEPEZIL HCL 5 MG TABLET. PO SCH (21:50)
[2019-06-08] MEDS: INSULIN GLARGINE SYRINGE. SQ SCH (21:55)
--- NOTE | 2019-06-09 00:34 | PN ---
DATE: 06/08/2019 SUBJECTIVE: The patient denies any new medical or neurological complaints. She denies any current seizure-like activities or syncopal episode. OBJECTIVE: GENERAL: Well-developed, well-nourished female, not in acute distress. VITAL SIGNS: Blood pressure 156/67, respiratory rate 20, pulse is 73 and regular, temperature is 98.4, and oxygen saturation 95%. HEENT: Normocephalic, atraumatic, otherwise unremarkable. NECK: Supple. Negative for carotid bruit, lymphadenopathy or thyromegaly. LUNGS: Clear to A and P. CARDIOVASCULAR: Regular rate and rhythm, normal S1, S2. There is no S3, S4 or murmur. ABDOMEN: Soft. Bowel sounds positive. EXTREMITIES: Negative for cyanosis, clubbing, or pitting edema. NEUROLOGICAL EXAM: Normal mental status and intact cranial nerves. Motor examination revealed resting tremor of the distal upper extremities, more prominent on the right side. Sensory examination revealed normal pinprick, light touch senses. Deep tendon reflexes were symmetric and hypoactive with absent Achilles responses. Gait, the patient uses a walker and ambulates with physical therapist. LABORATORY DATA: CBC revealed white blood cells of 6.7, hemoglobin 10, hematocrit 32, platelet count 197,000. Chemistry: Sodium 141, potassium 4, chloride 105, CO2 of 26, BUN 17, creatinine 1.1, glucose 166, calcium is 8.9. IMPRESSION: 1. Syncope versus seizure of uncertain etiology. 2. Parkinson's disease, osteoarthritis, depression, anxiety, bipolar disorder, diabetes mellitus, hypertension and hyperlipidemia. RECOMMENDATIONS: Continue with current management and physical therapy. We will sit the patient in the chair and ask her to be more active to see if she will have any recurrent episodes of syncope, which usually occurs when the patient is active. M Christal OSORIO MD DR: MEHRDAD/kenneth JOB#: [id number] / [id number]
--- NOTE | 2019-06-09 01:28 | PN ---
DATE: 06/08/2019 SUBJECTIVE: The patient is sitting comfortably in her chair, in no apparent distress. She has had no further episodes of syncope. Since she was admitted here, she stated that all her syncopal episode happened when she was sitting and so far she has been sitting for almost 2 hours without any syncope. She denied any chest pain, shortness of breath. OBJECTIVE: GENERAL: When I examined her, she looked well and was clearly in no apparent respiratory distress. No pallor, jaundice, cyanosis or thyromegaly. No jugular venous distention. No limb edema. VITAL SIGNS: Her heart rate was 65, blood pressure 124/58, temperature was 98.5, respiratory rate 22, and oxygen saturation was 98% on room air. HEAD, EYES, EARS, NOSE AND THROAT: Showed normocephalic, atraumatic. NECK: Supple. HEART: Showed normal first and second heart sounds. No gallop or murmur. CHEST: Clear to auscultation. No crepitation or rhonchi. ABDOMEN: Distended, soft, nontender. NEUROLOGIC: She is awake, alert, responding appropriately. All cranial nerves intact. She has parkinsonian tremors. She is apparently able to ambulate with a walker and has worked with physical therapy all the way to the shower and back. Her intake over the last 24 hours was 1000. No output was recorded. LABORATORY DATA: Her lab work this morning showed her white cell count to be 6700, hemoglobin 10, hematocrit 32, MCV 64 and platelet count of 197,000. Her chemistry showed a serum sodium 141, potassium 4, chloride 105, bicarbonate 26, anion gap of 10, BUN 17, creatinine 1.1, estimated GFR was 58 mL per minute. Her glucose was 166, calcium was 8.9, magnesium was 1.5. Serum triglycerides were 107, total cholesterol 130, LDL was 55, VLDL was 21, HDL cholesterol was 54 and ratio was 2. Her prothrombin time and INR were normal and urinalysis was essentially unremarkable. ASSESSMENT AND PLAN: The patient was admitted with recurrent syncopal episode. Apparently, all her lab works are within acceptable range. EKG was unremarkable. Her CT scan of the head was unremarkable. She was seen in consultation by the Cardiology team as well as the neurologist. So far, the recommendation was to consider outpatient monitor. If she remains stable and has had no further episodes of syncope by tomorrow, she can be discharged home to follow with her quality head at [facility]. CRISTIN MALDONADO MD DR: CAROL/kenneth JOB#: [id number] / [id number]
[2019-06-09] MEDS: LEVOTHYROXINE 75 MCG TABLET PO SCH (05:34)
[2019-06-09 06:09] VITALS: BP 154/68
[2019-06-09 07:41] LABS: HEMATOCRIT 32.1 % (36.0-47.0); RED BLOOD COUNT 5.02 x10^6/uL (3.50-5.40); RED CELL DISTRIBUTION WIDTH 15.4 % (11.5-14.5); WHITE BLOOD COUNT 6.8 x10^3/uL (4.0-11.0)
[2019-06-09 07:48] LABS: CALCIUM 8.9 mg/dL (8.5-10.1); GFR 65.2; MAGNESIUM 1.7 mg/dL (1.8-2.4)
[2019-06-09] MEDS: metFORMIN 500 MG TABLET PO SCH ×2 (08:35→17:11)
[2019-06-09] MEDS: CARBIDOPA/LEVODOPA 25/100MG TABLET PO SCH ×4 (08:35→21:05)
[2019-06-09] MEDS: LISINOPRIL 20 MG TABLET PO SCH (08:35)
[2019-06-09] MEDS: ASPIRIN ENTERIC COATED 81 MG TABLET.DR. PO SCH (08:36)
[2019-06-09] MEDS: rOPINIRole 1 MG TABLET. PO SCH ×3 (08:36→21:05)
[2019-06-09] MEDS: CARVEDILOL 12.5 MG TABLET PO SCH ×2 (08:36→17:12)
[2019-06-09] MEDS: MAGNESIUM CHLORIDE ER 64 MG TABLET.ER PO SCH (08:37)
[2019-06-09] MEDS: lamoTRIgine 100 MG TABLET. PO SCH ×2 (08:37→17:11)
[2019-06-09] MEDS: INSULIN LISPRO 300 UNITS/3 ML VIAL. SQ SCH ×4 (08:39→21:05)
[2019-06-09] MEDS ORDERED: FLU VAX QS 2019-20 (36MOS+)/PF 0.5 ML SYRINGE. VAX IM ONE (11:00)
[2019-06-09 11:30] VITALS: BP 153/68
[2019-06-09] MEDS: MULTIVITAMIN with MINERAL TABLET. PO SCH (12:19)
[2019-06-09] MEDS: OMEGA-3 FATTY ACIDS/FISH OIL 1,000 MG CAPSULE. PO SCH (12:19)
[2019-06-09] MEDS: CHOLECALCIFEROL (VITAMIN D3) 1,000 UNIT TABLET PO SCH (12:20)
[2019-06-09] MEDS: CYANOCOBALAMIN (VITAMIN B-12) 1,000 MCG TABLET. PO SCH (12:20)
[2019-06-09 15:23] VITALS: BP 156/70
[2019-06-09] MEDS: CARBIDOPA/LEVODOPA CR 25/100MG TABLET.SA PO SCH (17:11)
[2019-06-09 19:20] VITALS: BP 140/64
[2019-06-09] MEDS: DONEPEZIL HCL 5 MG TABLET. PO SCH (21:05)
[2019-06-09] MEDS: SIMVASTATIN 40 MG TABLET. PO SCH (21:05)
[2019-06-09] MEDS: ARIPiprazole 5 MG TABLET PO SCH (21:05)
[2019-06-09] MEDS: INSULIN GLARGINE SYRINGE. SQ SCH (21:14)
--- NOTE | 2019-06-09 23:46 | PN ---
DATE: SUBJECTIVE: The patient denies any recurrent spells or seizure-like activity or syncopal episode. She denies any new medical or neurological complaints. OBJECTIVE: GENERAL: Well-developed, well-nourished female, not in acute distress. VITAL SIGNS: Blood pressure 156/70, respiratory rate 22, pulse is 81, temperature afebrile, oxygen saturation 95% on room air. HEENT: Normocephalic, atraumatic, otherwise unremarkable. NECK: Supple. Negative for carotid bruit, lymphadenopathy or thyromegaly. LUNGS: Clear to A and P. CARDIOVASCULAR: Regular rate and rhythm, normal S1, S2. There is no S3, S4 or murmur. ABDOMEN: Soft. Bowel sounds positive. EXTREMITIES: Negative for cyanosis, clubbing, pitting edema. NEUROLOGICAL EXAM: Mental Status: The patient is alert and oriented x 3. Speech is fluent. There is no language dysfunction. The patient recalls 2/3 immediately and after 1 and 3 minutes. Judgment and abstract thinking are fair. The patient denies hallucination or delusion. Cranial nerves are intact. No focal motor or sensory deficit. The patient has resting tremor of both upper extremities. Deep tendon reflexes were symmetric and hypoactive with absent Achilles responses. Motor examination revealed no focal muscle bulk was seen. The tone is normal. The strength is 4/5 throughout. The patient has resting tremor of both upper extremities. Sensory examination revealed diminished pinprick and light touch senses over the distal lower extremities. Deep tendon reflexes were asymmetric and hypoactive with absent Achilles responses. Gait: The patient uses a walker for ambulation. LABORATORY DATA: CBC revealed white blood cells of 6.8 thousand, hemoglobin 10, hematocrit 32 and platelet count 219,000. Chemistry revealed sodium of 140, potassium 4, chloride 104, CO2 of 26, BUN is 17, creatinine 1, glucose is 164 and calcium is 8.9. Magnesium is low at 1.7. IMPRESSION: 1. Syncope versus seizure of uncertain etiology. 2. Parkinson's disease, osteoarthritis, depression, anxiety, bipolar disorder, diabetes mellitus, hypertension, hyperlipidemia. RECOMMENDATIONS: Continue with current management and care. We will arrange for EEG on an outpatient basis. M Christal OSORIO MD DR: MEHRDAD/kenneth JOB#: [id number] / [id number]
--- NOTE | 2019-06-10 00:01 | DS ---
DATE OF DISCHARGE: 06/09/2019 HISTORY OF PRESENT ILLNESS: The patient is a 78-year-old -Algerian female patient who was admitted by Dr. Rogers as he is her primary care physician, I just took over. She came to the Emergency Room, apparently having episodes at home of passing out of 20-30- 30-40 minutes. This had occurred about several times over the last several weeks. The family notes no shaking or seizure-like activity, but was able to observe her. The patient otherwise is basically unresponsive and then when she woke up apparently finally her called the emergency medical service brought her into the Emergency Room and when she came to the Emergency Room, she was alert, oriented x 3, conversing normally, did not have any pain, not have any postictal sensation. The patient was admitted for possible seizure activity versus syncope. The patient was seen in consultation by the Cardiology team as well as the neurologist. She was extensively investigated by the neurologist and by the excavating supervisor. She apparently has no postural hypertension. All her lab works were unremarkable. Her EKG showed that she was in sinus rhythm. She has had orthostatic hypotension checked and showed no evidence of postural hypertension. She has had no acute events on tele throughout her stay in the hospital. She was seen also by Dr. Gordon and throughout her stay here, she has not demonstrated any evidence of seizures or even became unresponsive throughout her stay here and he recommended outpatient electroencephalogram and Cardiology and obviously Cardiology team has seen her. The excavating supervisor recommended outpatient monitoring, cardiac monitoring and she follows with the [facility]. They will notify the excavating supervisor there and her son wanted her to be transferred to [facility] and we did actually contact the transfer team there. We sent her all the information including all the evaluation by the excavating supervisor and the neurologist and basically the [facility] declined the transfer. I have explained to the patient that given all this information, the [facility] is very unlikely to take her given the experience with them and that best possibilities for them to take her there directly to the Emergency Room, the patient became very angry and said that he is done with us. He is not going to talk to me anymore. He is going to contact his bias binding folder and solve this problem through the Medicare. I tried to reason with him, consider other option of transferring to another hospital speciality or at [facility], but he was adamant that he does not want to talk to me anymore. Our correctional case manager was involved and we submitted an appeal to Medicare and patient discharged, but he is still here pending the appeal to the Medicare. CRISTIN MALDONADO MD DR: CAROL/kenneth JOB#: [id number] / [id number]
[2019-06-10] MEDS: LEVOTHYROXINE 75 MCG TABLET PO SCH (05:55)
[2019-06-10 06:05] VITALS: BP 167/68
[2019-06-10] MEDS: INSULIN LISPRO 300 UNITS/3 ML VIAL. SQ SCH ×4 (08:00→21:00)
[2019-06-10] MEDS: lamoTRIgine 100 MG TABLET. PO SCH ×2 (08:09→17:00)
[2019-06-10] MEDS: MAGNESIUM CHLORIDE ER 64 MG TABLET.ER PO SCH (08:09)
[2019-06-10] MEDS: CARBIDOPA/LEVODOPA 25/100MG TABLET PO SCH ×4 (08:09→20:18)
[2019-06-10] MEDS: ASPIRIN ENTERIC COATED 81 MG TABLET.DR. PO SCH (08:09)
[2019-06-10] MEDS: rOPINIRole 1 MG TABLET. PO SCH ×3 (08:09→17:36)
[2019-06-10] MEDS: metFORMIN 500 MG TABLET PO SCH ×2 (08:09→17:36)
[2019-06-10] MEDS: LISINOPRIL 20 MG TABLET PO SCH (08:10)
[2019-06-10] MEDS: CARVEDILOL 12.5 MG TABLET PO SCH ×2 (08:10→17:37)
[2019-06-10] MEDS: CEFDINIR 300 MG CAPSULE PO SCH ×2 (09:38→20:18)
[2019-06-10] MEDS: OMEGA-3 FATTY ACIDS/FISH OIL 1,000 MG CAPSULE. PO SCH (12:14)
[2019-06-10] MEDS: CHOLECALCIFEROL (VITAMIN D3) 1,000 UNIT TABLET PO SCH (12:14)
[2019-06-10] MEDS: MULTIVITAMIN with MINERAL TABLET. PO SCH (12:14)
[2019-06-10] MEDS: CYANOCOBALAMIN (VITAMIN B-12) 1,000 MCG TABLET. PO SCH (12:15)
[2019-06-10 18:40] VITALS: BP 176/86
[2019-06-10] MEDS: SIMVASTATIN 40 MG TABLET. PO SCH (20:18)
[2019-06-10] MEDS: DONEPEZIL HCL 5 MG TABLET. PO SCH (20:18)
[2019-06-10] MEDS: ARIPiprazole 5 MG TABLET PO SCH (20:18)
[2019-06-10] MEDS: INSULIN GLARGINE SYRINGE. SQ SCH (20:19)
[2019-06-10] MEDS: CARBIDOPA/LEVODOPA CR 25/100MG TABLET.SA PO SCH (21:00)
--- NOTE | 2019-06-11 00:45 | PN ---
DATE: 06/10/2019 SUBJECTIVE: The patient is a 78-year-old -B[place]amian female patient who was discharged yesterday; however, the family has availed the decision. She presented to the Emergency Room, apparently having episodes at home of passing out of 20-30, 30-40 minutes. This had occurred about several times over the last several weeks; however, the family did not note any shaking or seizure-like activity, but was able to observe her. The patient otherwise continued to be unresponsive and then when she woke up and eventually, she wakes up. Her called emergency medical services, who brought her to the Emergency Room and when she came to the Emergency Room, she was alert, oriented x 3, conversing normally, did not have any pain nor was seen any postictal sensation throughout her stay. She has not developed any similar presentation while here throughout her stay and at [facility]. She was monitored continuously. There was no evidence of any high grade heart block or any arrhythmias. Her orthostatics were checked multiple times and there is no evidence of postural hypertension. She did not display any seizure activity while here and the floor helper recommended outpatient heart monitor and Dr. Gordon who recommended doing EEG as an outpatient; however, her son insisted that she will be transferred to [facility]. We did actually contact the transfer center there; however, they understand all the information including all the evaluation done by the floor helper and neurologist and basically [facility] declined the transfer. In any how, the discharge was availed and I am waiting for the decision by Medicare, however, when I saw her today, she was sitting comfortably in her chair, in no apparent respiratory distress. On questioning her, denied any complaint. Denied any further episode of unresponsiveness. The nursing staff did not report any episodes of seizure-like activity or syncope or any arrhythmias. She was able to walk with a walker all the way and have a shower and came back without any difficulty. OBJECTIVE: GENERAL: When I examined her this afternoon, she looked well and was clearly in no apparent respiratory distress. No pallor, jaundice, cyanosis or thyromegaly. No jugular venous distention. No limb edema. VITAL SIGNS: Her heart rate was 76, blood pressure was 167/68, temperature was 98.6, respiratory rate was 18 and oxygen saturation was 94%. HEAD, EYES, EARS, NOSE AND THROAT: Showed normocephalic, atraumatic. NECK: Supple. HEART: Showed normal first and second heart sounds. No gallop or murmur. CHEST: Clear to auscultation. No crepitation or rhonchi. ABDOMEN: Distended, soft, nontender. NEUROLOGIC: She is awake, alert, and responding appropriately. All cranial nerves intact. She has prominent parkinsonian tremors in both upper extremities; however, she is able to walk with a walker. LABORATORY DATA: As of yesterday, her white cell count was 6800, hemoglobin 10, hematocrit 32, MCV 64 and platelet count 219,000. Her blood sugar seems to be reasonably controlled. Her most recent chemistry showed a serum sodium 140, potassium 4, chloride 104, bicarbonate 26, anion gap of 10, BUN 17, creatinine 1, estimated GFR was 65 mL per minute. Her glucose was 64, calcium was 8.9, and magnesium was 1.7. ASSESSMENT: 1. Recurrent syncopal episode versus seizure disorder. So far, she has not displayed any of these symptoms throughout her stay since admission and did not display any evidence of high grade block or arrhythmias whether tachy or bradyarrhythmias. There were no witnessed seizures throughout her stay here. She had urine culture has grown Klebsiella pneumoniae, sensitive to cefdinir, for which we started her on 300 mg twice a day. PLAN: To continue with all her medications. Continue with physical and occupational therapy. We will await Medicare decision. CRISTIN MALDONADO MD DR: CAROL/kenneth JOB#: [id number] / [id number]
--- NOTE | 2019-06-11 01:18 | PN ---
DATE: SUBJECTIVE: The patient denies any recurrence of syncope or seizure-like activities. Otherwise, she complains of generalized weakness and tiredness. OBJECTIVE: GENERAL: Well-developed, well-nourished female, in no acute distress. VITAL SIGNS: Blood pressure 160/67, respiratory rate 18, pulse is 72 and regular, temperature 98.6, oxygen saturation is ____. HEENT: Normocephalic, atraumatic, otherwise unremarkable. NECK: Supple. Negative for carotid bruit, lymphadenopathy, or thyromegaly. LUNGS: Clear to A and P. CARDIOVASCULAR: Regular rate and rhythm. Normal S1, S2. There is no S3, S4, or murmur. ABDOMEN: Soft. Bowel sounds positive. EXTREMITIES: Negative for cyanosis, clubbing, or pitting edema. NEUROLOGICAL EXAM: The patient is alert and oriented x 3. The speech is fluent. There is no language dysfunction. Cranial nerves are intact. No focal muscle bulk was seen. The strength was 4/5 throughout. Sensory examination revealed diminished pinprick and light touch senses in patchy distributions in both lower extremities. Deep tendon reflexes were symmetric and hypoactive with absent Achilles responses. Gait not tested. The patient walks with a walker with assistance as well. She continues to have resting tremor of both upper extremities. IMPRESSION: 1. Parkinson's disease, stable. 2. Recurrent spells of syncope versus non-convulsive seizure. 3. Multiple medical problems to include diabetes mellitus, hypertension, anxiety, bipolar disorder, hyperlipidemia, and osteoarthritis. RECOMMENDATIONS: Continue with current management and physical therapy. M Christal OSORIO MD DR: MEHRDAD/kenneth JOB#: [id number] / [id number]
[2019-06-11] MEDS: rOPINIRole 1 MG TABLET. PO SCH ×2 (06:09→08:01)
[2019-06-11] MEDS: LEVOTHYROXINE 75 MCG TABLET PO SCH (06:09)
[2019-06-11] MEDS: INSULIN LISPRO 300 UNITS/3 ML VIAL. SQ SCH ×2 (08:00→12:00)
[2019-06-11] MEDS: metFORMIN 500 MG TABLET PO SCH (08:01)
[2019-06-11] MEDS: ASPIRIN ENTERIC COATED 81 MG TABLET.DR. PO SCH (08:01)
[2019-06-11] MEDS: MAGNESIUM CHLORIDE ER 64 MG TABLET.ER PO SCH (08:01)
[2019-06-11] MEDS: lamoTRIgine 100 MG TABLET. PO SCH (08:02)
[2019-06-11] MEDS: CARBIDOPA/LEVODOPA 25/100MG TABLET PO SCH ×2 (08:02→12:25)
[2019-06-11] MEDS: CEFDINIR 300 MG CAPSULE PO SCH (08:02)
[2019-06-11] MEDS: CARVEDILOL 12.5 MG TABLET PO SCH (08:02)
[2019-06-11] MEDS: LISINOPRIL 20 MG TABLET PO SCH (08:03)
[2019-06-11 08:30] VITALS: BP 146/68
[2019-06-11] MEDS ORDERED: LACTOBACILLUS RHAMNOSUS GG 1 CAPSULE. PO SCH (09:00)
[2019-06-11] MEDS: CYANOCOBALAMIN (VITAMIN B-12) 1,000 MCG TABLET. PO SCH (12:25)
[2019-06-11] MEDS: OMEGA-3 FATTY ACIDS/FISH OIL 1,000 MG CAPSULE. PO SCH (12:25)
[2019-06-11] MEDS: CHOLECALCIFEROL (VITAMIN D3) 1,000 UNIT TABLET PO SCH (12:25)
[2019-06-11] MEDS: MULTIVITAMIN with MINERAL TABLET. PO SCH (12:25)
[2019-06-11] MEDS ORDERED: rOPINIRole 1 MG TABLET. PO SCH (13:00)
[2019-06-11] MEDS ORDERED: ROPI0.25 PO (13:04)
[2019-06-11] MEDS ORDERED: CEFD300C PO (13:05)
[2019-06-11 13:20] VITALS: BP 145/64
--- NOTE | 2019-06-11 18:38 | PN ---
DATE: 06/11/2019 SUBJECTIVE: The patient denies any new medical or neurological complaints. Initially, she was admitted because recurrent spells of a sudden onset of mental status changes. The patient stated she sees and hear people, but she could not response for a few minutes. She does not have any apparent convulsions or complete loss of consciousness. OBJECTIVE: GENERAL: Well-developed, well-nourished female, not in acute distress. VITAL SIGNS: Blood pressure 146/68, respiratory rate 22, pulse is 74, temperature is 98.6, oxygen saturation 95% on room air. HEENT: Normocephalic, atraumatic, otherwise unremarkable. NECK: Supple. Negative for carotid bruit, lymphadenopathy or thyromegaly. LUNGS: Clear to A and P. CARDIOVASCULAR: Regular rate and rhythm, normal S1, S2. ABDOMEN: Soft. Bowel sounds positive. EXTREMITIES: Negative for cyanosis, clubbing, or edema. NEUROLOGICAL EXAMINATION: Mental status: The patient is alert and oriented x 3. The speech is fluent. There is no language dysfunction. Memory, judgment, and abstract thinking are fair. The patient denies hallucination or delusion. Cranial nerves are intact. No focal motor or sensory deficit. The patient has resting tremor of both upper extremities. She does not have any postural or kinetic tremors. The strength was 4/5 throughout. Sensory examination revealed normal pinprick, light touch senses throughout. Deep tendon reflexes were symmetric and hypoactive with absent Achilles responses. Gait not tested. The patient uses a cane for ambulation with assistance. IMPRESSION: 1. Episode of unresponsive without convulsion or post-event confusion, etiology uncertain, rule out prolonged syncope versus non-convulsive seizure. However, the patient has not had any recurrent spells since admission. 2. Parkinson disease was mild resting tremor. 3. Mild resting tremor without rigidity. 4. Multiple medical problems include diabetes mellitus, hypertension, hyperlipidemia, osteoarthritis, bipolar disorder, depressions, and anxiety and peripheral neuropathy of the lower extremities. RECOMMENDATIONS: We will increase ropinirole to 1.25 mg 3 times daily and continue with carbidopa/levodopa 25/100 mg one q.i.d. Otherwise, continue current management and recommendations. M Christal OSORIO MD DR: MEHRDAD/kenneth JOB#: [id number] / [id number]
--- NOTE | 2019-06-11 18:55 | PN ---
DATE: 06/11/2019 SUBJECTIVE: The patient is resting, slightly propped up in bed, in no apparent distress. She has no further episodes of seizure-like activity since she was admitted here. She has been hemodynamically stable and afebrile. She has been monitored continuously and no evidence of high grade block or arrhythmias with a genet or tachyarrhythmias. She has never had any seizures throughout her stay here. She was extensively evaluated by the advertising sales executive and neurologist who recommended that she can be discharged safely to have a child abuse worker and to have EEG as an outpatient. OBJECTIVE: GENERAL: When I saw her this morning, she was resting slightly propped up in bed, in no apparent distress. On questioning her, denied any complaint. The nursing staff did not voice any concern. In examining her, she looked pale, but no jaundice, cyanosis or thyromegaly. No jugular venous distension. No lower limb edema. VITAL SIGNS: Her heart rate was 74, blood pressure was 146/68, temperature was 98.6, respiratory rate was 22 and oxygen saturation was 95%. HEAD, EYES, EARS, NOSE AND THROAT: Showed normocephalic, atraumatic. NECK: Supple. HEART: Showed normal first and second heart sounds. No gallop or murmur. CHEST: Clear to auscultation. No crepitation or rhonchi. ABDOMEN: Distended, soft, nontender. No guarding or rigidity. No organomegaly. All hernial orifice intact. Bowel sounds normal. NEUROLOGIC: She is awake, alert, responding appropriately. All cranial nerves intact. She moves extremities without difficulty. She has parkinsonian tremors. She is able to walk with a walker. Her intake over the last 24 hours was 1230, output was 850. Her blood sugar has been well within acceptable range. LABORATORY DATA: Her blood count showed hemoglobin of 10, hematocrit 32 with a white cell count of 6800 and platelets 219. Her chemistry showed her BUN was 17, creatinine was 1. ASSESSMENT: 1. Recurrent syncopal episode versus seizure disorder. So far, she has not displayed any of these symptoms throughout her stay. Since admission, did not display any evidence of high grade block or arrhythmias with tachycardic or bradyarrhythmias and there were no witnessed seizures throughout her stay here. She had urine culture has grown Klebsiella pneumoniae, sensitive to cefdinir, which was started on 300 mg twice a day. PLAN: To continue oral medication. Continue with physical and occupational therapy. Continue with antibiotic. The patient can be discharged home any time if the family decided to do so. Otherwise, we have to wait for the Medicare's decision regarding their appeal on Thursday.. CRISTIN MALDONADO MD DR: CAROL/kenneth JOB#: [id number] / [id number]
--- NOTE | 2019-06-11 23:45 | DS ---
DATE OF DISCHARGE: 06/11/2019 HOSPITAL COURSE: The patient is a 78-year-old -Dominican female patient who was admitted originally on 06/07/2019 through the Emergency Room Department. She apparently has had episodes at home of passing out for 20-30 to 30-40 minutes. This had occurred about several times over the last several weeks. The patient noticed no shaking or seizure-like activity. During this episode, the patient became unresponsive and then woke up. Finally, her called EMS and she was brought to the Emergency Room; however, when she arrived to the Emergency Room, she was alert, oriented x 3, conversing normally, did not have any pain, did not have any ____ for possible seizure, activity versus syncope. She was seen in consultation by the network security analyst and the neurologist and basically was investigated by physical examination and also has had an EKG. She was monitored throughout while stay here, has had a CT scan of the head that was unremarkable. No acute intracranial abnormality identified. There is scattered ill-defined low density of the supratentorial parenchyma more commonly due to chronic microvascular ischemic disease, but there is no obvious infarct. There is no postural hypotension throughout her stay. She was monitored there is no evidence of any high-grade heart block or tachy or bradyarrhythmia. She has never had any observed seizure activity. She remained throughout her stay hemodynamically stable, afebrile. PHYSICAL EXAMINATION: GENERAL: When I saw her today, she was sitting comfortably in bed, in no apparent respiratory distress. There is no jaundice, cyanosis or thyromegaly. No jugular venous distention. No lower limb edema. VITAL SIGNS: Her heart rate was 72, blood pressure 145/64, temperature was 98.7, respiratory rate 22, and oxygen saturation was 95%. HEAD, EYES, EARS, NOSE AND THROAT: Showed normocephalic, atraumatic. NECK: Supple. HEART: Showed normal first and second heart sounds. No gallop or murmur. CHEST: Clear to auscultation. No crepitation or rhonchi. ABDOMEN: Distended, soft, nontender. No guarding or rigidity. No organomegaly. All hernial orifice intact. Bowel sounds normal. NEUROLOGIC: She was awake, alert, responding appropriately. All cranial nerves intact. She moves extremities without difficulty. She ambulates with a walker. She has obvious parkinsonian, pill rolling tremors. LABORATORY DATA: Showed a white cell count of 6800, hemoglobin 10, hematocrit 32, MCV 64 and platelet count 219,000. Her blood sugar has been fairly stable throughout her stay here. Her most recent chemistry showed a serum sodium 140, potassium 4, chloride 104, bicarbonate 26, anion gap of 10, BUN 17, creatinine 1, estimated GFR was 65 mL per minute. Her calcium was 8.9, magnesium was 0.7. Her prothrombin time and INR are normal. Her urinalysis showed that she has 11-20 wbc's, and her urine culture grew more than 100,000 colony forming units per mL of gram-negative rods identified as Klebsiella pneumoniae, sensitive to most cephalosporins. She was started on cefdinir. The patient and her have finally agreed to go home and to make an appointment with her primary care physician to arrange for further evaluation, perhaps at [facility]. DISCHARGE MEDICATIONS: She was discharged home to continue on the following medications: Tylenol 650 mg every 6 hours, aspirin 81 mg once a day, carbidopa/levodopa 25/100 one tablet 4 times a day, carvedilol 25 mg twice a day, cefdinir 300 mg twice a day for 6 more days, cholecalciferol for vitamin D3 one tablet once a day, cranberry extract 500 mg daily, cyanocobalamin 1000 mcg daily, Colace 100 mg b.i.d., Aricept 5 mg at bedtime, fosinopril sodium 40 mg daily. She is on Lantus insulin 10 units at bedtime. She is ____ omega-3 one tablet once a day, lamotrigine for Lamictal 150 mg twice a day, levothyroxine sodium 50 mcg daily, Maalox 15 mL as needed after meals, milk of magnesia 30 mL p.o. daily p.r.n. for constipation, magnesium oxide 500 mg once a day, metformin 1000 mg twice a day, multivitamin 1 tablet once a day, nifedipine 60 mg daily, polyethylene glycol 17 grams daily, pravastatin sodium 80 mg at bedtime and Requip 1.25 mg 3 times a day for tremors. FINAL DISCHARGE DIAGNOSES: Recurrent episode of syncope versus seizures, non-documented throughout her stay in the hospital. The monitor did not show any evidence of high-grade heart block or tachy or bradyarrhythmias. She has no postural hypertension. She has no witnessed seizures. Other medical problems include hypertension, type 2 diabetes, bipolar disorder, depression and anemia. She has also urinary tract infection with growth of Klebsiella pneumoniae. The patient will be discharged to complete oral antibiotic as an outpatient and follow up with Dr. Rogers as an outpatient. CRISTIN MALDONADO MD DR: CAROL/kenneth JOB#: [id number] / [id number]
== END 2019-06-11 14:45 | disposition home or self-care (01) | DRG 690 ==
LOC: ER 14:45 → ICU 06-07 05:15
PROVIDERS: ADMIT Family Medicine; ATTEND Internal Medicine
DX: N39.0 Urinary tract infection, site not specified (principal); R55 Syncope and collapse; R32 Unspecified urinary incontinence; M06.9 Rheumatoid arthritis, unspecified; G20 Parkinson's disease; D56.3 Thalassemia minor; R56.9 Unspecified convulsions; F31.9 Bipolar disorder, unspecified; E83.42 Hypomagnesemia; F41.9 Anxiety disorder, unspecified; E03.9 Hypothyroidism, unspecified; E11.319 Type 2 diabetes mellitus with unspecified diabetic retinopathy without macular edema; E11.42 Type 2 diabetes mellitus with diabetic polyneuropathy; E78.00 Pure hypercholesterolemia, unspecified; E78.5 Hyperlipidemia, unspecified; I10 Essential (primary) hypertension; M19.90 Unspecified osteoarthritis, unspecified site; Z82.49 Family history of ischemic heart disease and other diseases of the circulatory system; Z87.440 Personal history of urinary (tract) infections; Z83.3 Family history of diabetes mellitus
CPT/HCPCS: 36415; 70450; 71045; 80048; 80053; 80061; 81001; 82947; 83036; 83605; 83735; 83880; 84443; 84484; 85025; 85027; 85610; 87086; 87186; 90471; 90686; 93005; 96360; 96361; 96372; J1815; J3475; 97110; 97530; 99285-25; J7030

== ENCOUNTER 2019-11-15 17:47 | Inpatient (IN) | payer MEDICARE, BC ==
[~2019-11-15] VITALS: Ht 165.1 cm; Wt 85.9 kg
[~2019-11-15 17:47] MED LIST changes: +CEFD300C PO; -MAGN2400 PO; +MAGN24003 PO; +ROPI0.25 PO
--- NOTE | 2019-11-15 18:22 | PHYS DOC ---
Past History Past Medical History: Anxiety, Bipolar, Depression, Diabetes, High Cholesterol, Hypertension, Other Additional Past Medical Histor: Parkinson's disease Smoking: Non-smoker Alcohol Use: None Drug Use: None Adult General Chief Complaint Chief Complaint: LOWER EXTREMITY SWELLING [facility] HPI 79-year-old female presents with bilateral lower extremity swelling. The patient states that she has had increased swelling over the last 3-4 days, most markedly yesterday and today. She typically has more swelling in her right lower leg than the left, but the left leg has been swelling more. She is also noticed red and purplish discoloration of the left lower leg which is new. She does not recall any trauma. She has a history of DVT in the right lower leg in the past. She is currently on no blood thinners. She does take aspirin daily. The patient takes 40 mg of Lasix daily. She has been taking this as prescribed. In fact, she took 60 mg today as she took an extra 20 mg this afternoon. She has had increased urinary output. She denies shortness of breath, diaphoresis, exercise intolerance. She has been on her feet quite a bit. She denies chest pain, fever, or chills. Review of Systems Review of Systems Constitutional: Denies fever or chills [] Eyes: Denies change in visual acuity, redness, or eye pain [] HENT: Denies nasal congestion or sore throat [] Respiratory: Denies cough or shortness of breath [] Cardiovascular: No additional information not addressed in HPI [] GI: Denies abdominal pain, nausea, vomiting, bloody stools or diarrhea [] : Denies dysuria or hematuria [] Musculoskeletal: Lower extremity swelling[] Integument: Denies rash or skin lesions [] Neurologic: Denies headache, focal weakness or sensory changes [] Endocrine: Denies polyuria or polydipsia [] All other systems were reviewed and found to be within normal limits, except as documented in this note. Allergies Allergies Allergies Coded Allergies Type Severity Reaction Last Updated Verified atorvastatin Allergy Intermediate "sore upper arms" 02/16/15 Yes iodine Allergy Intermediate 09/25/15 Yes pioglitazone Allergy Mild 01/02/16 Yes Physical Exam Physical Exam Constitutional: Well developed, well nourished, no acute distress, non-toxic appearance. [] HENT: Normocephalic, atraumatic, bilateral external ears normal, oropharynx mo ist, no oral exudates, nose normal. [] Eyes: PERRLA, EOMI, conjunctiva normal, no discharge. [] Neck: Normal range of motion, no tenderness, supple, no stridor. [] Cardiovascular:Heart rate regular rhythm, 4/6 systolic murmur [] Lungs & Thorax: Bilateral breath sounds clear to auscultation [] Abdomen: Bowel sounds normal, soft, no tenderness, no masses, no pulsatile masses. [] Skin: Warm, dry. Erythematous and purplish skin of the left lower extremity, worse on lateral side. similar temperature to right leg. [] Back: No tenderness, no CVA tenderness. [] Extremities: No tenderness, no cyanosis, no clubbing, ROM intact, 3+ pitting edema bilaterally up to the lower thighs. [] Neurologic: Alert and oriented X 3, normal motor function, normal sensory function, no focal deficits noted. [] Psychologic: Affect normal, judgement normal, mood normal. [] EKG EKG [] Radiology/Procedures Radiology/Procedures [] Impressions: Exam: Bilateral lower extremity venous duplex study INDICATION: Leg swelling TECHNIQUE: Using a combination of real-time ultrasound imaging and color-flow and pulse Doppler imaging techniques along with graded compression and augmentation, duplex evaluation of the deep venous systems of bilateral lower extremity was performed. Multiple images were obtained. Findings: There is no sonographic evidence for deep venous thrombosis involving the visualized deep venous structures of the bilateral lower extremity. IMPRESSION: No acute DVT in the bilateral lower extremities. Electronically signed by: Fabi Rust MD (11/15/2019 8:04 PM) [id number] DICTATED AND SIGNED BY: FABI RUST MD DATE: 11/15/192003 CC: LESLI SAINZ DO; PERLA LORENZO MD ~ Course & Med Decision Making Course & Med Decision Making Pertinent Labs and Imaging studies reviewed. (See chart for details) The patient's urinalysis is negative for infection. Her ultrasound is negative for DVT. Her labs do show anemia with hemoglobin of 9. Her previous are similar at 10. Her blood sugar is elevated above 250. She has a proBNP 1000. The patient appears to be clinically fluid overloaded. I spoke with Dr. Lorenzo and he has accepted the patient for admission. Since the patient already took a dose Lasix today I'll hold off on an increased IV dose until tomorrow morning. The patient is in agreement with admission. [] Dragon Disclaimer Dragon Disclaimer This electronic medical record was generated, in whole or in part, using a voice recognition dictation system. Departure Departure: Impression: Primary Impression: CHF exacerbation Additional Impression: Anemia Disposition: ADMITTED INPATIENT Admitting Physician: Perla Lorenzo Condition: STABLE Referrals: PERLA LORENZO MD (PCP) Problem Qualifiers Primary Impression: CHF exacerbation Heart failure type: systolic Qualified Codes: I50.23 - Acute on chronic systolic (congestive) heart failure Additional Impression: Anemia Anemia type: iron deficiency Iron deficiency anemia type: unspecified iron deficiency Qualified Codes: D50.9 - Iron deficiency anemia, unspecified LESLI SAINZ DO Nov 15, 2019 18:22
[2019-11-15 19:14] LABS: BASO % 1 % (0-3); EOS # 0.1 x10^3/uL (0.0-0.7); EOS % 2 % (0-3); HEMATOCRIT 29.3 % (36.0-47.0); LYMPH # 1.1 x10^3/uL (1.0-4.8); LYMPH % 15 % (24-48); MEAN CORPUSCULAR HEMOGLOBIN 20 pg (25-35); MEAN CORPUSCULAR HGB CONC 31 g/dL (31-37); MEAN CORPUSCULAR VOLUME 66 fL (79-100); MONO # 0.4 x10^3/uL (0.0-1.1); MONO % 6 % (0-9); NEUT # 5.6 x10^3uL (1.8-7.7); NEUT % 78 % (31-73); PLATELET COUNT 351 x10^3/uL (140-400); RED BLOOD COUNT 4.42 x10^6/uL (3.50-5.40); RED CELL DISTRIBUTION WIDTH 15.8 % (11.5-14.5); WHITE BLOOD COUNT 7.3 x10^3/uL (4.0-11.0)
[2019-11-15 19:22] LABS: BILIRUBIN,URINE NEG (NEG); CLARITY,URINE CLEAR; COLOR,URINE STRAW; GLUCOSE,URINE 500 mg/dL (NEG); NITRITE,URINE NEG (NEG); UROBILINOGEN,URINE 0.2 mg/dL (0.2 mg/dL)
[2019-11-15 19:23] LABS: BACTERIA,URINE 0 /HPF (0-FEW); SQUAMOUS EPITHELIAL CELL,UR OCC /LPF
[2019-11-15 19:25] LABS: CALCIUM 9.4 mg/dL (8.5-10.1); CREATININE 0.9 mg/dL (0.6-1.0); GFR 73.5
[2019-11-15 19:28] LABS: ALBUMIN 3.2 g/dL (3.4-5.0); ALBUMIN/GLOBULIN RATIO 0.8 (1.0-1.7); TOTAL BILIRUBIN 0.4 mg/dL (0.2-1.0); TOTAL PROTEIN 7.1 g/dL (6.4-8.2)
[2019-11-15 20:07] LABS: ANISOCYTOSIS SLIGHT; HYPOCHROMIA MOD; MICROCYTOSIS SLIGHT; PLT ESTIMATE ADEQUATE (ADEQUATE)
--- NOTE | 2019-11-15 20:07 | RAD ---
Exam: Bilateral lower extremity venous duplex study INDICATION: Leg swelling TECHNIQUE: Using a combination of real-time ultrasound imaging and color-flow and pulse Doppler imaging techniques along with graded compression and augmentation, duplex evaluation of the deep venous systems of bilateral lower extremity was performed. Multiple images were obtained. Findings: There is no sonographic evidence for deep venous thrombosis involving the visualized deep venous structures of the bilateral lower extremity. IMPRESSION: No acute DVT in the bilateral lower extremities. Electronically signed by: Fabi Bocanegra MD (11/15/2019 8:04 PM) [id number]
[2019-11-15 20:08] LABS: POLYCHROMASIA SLIGHT
[2019-11-15] MEDS ORDERED: ACETAMINOPHEN 325 MG TABLET PO PRN ×2 (21:00→22:45)
[2019-11-15] MEDS ORDERED: ONDANSETRON PF 4 MG/2 ML VIAL. IV PRN (21:00)
[2019-11-15 22:38] VITALS: BP 160/75
[2019-11-15] MEDS ORDERED: POLYETHYLENE GLYCOL 3350 17 GM PACKET. PO PRN (22:45)
[2019-11-15] MEDS ORDERED: DOCUSATE SODIUM 100 MG CAPSULE PO PRN (22:45)
[2019-11-15] MEDS ORDERED: INSU100V31 SQ (22:50)
[2019-11-15] MEDS ORDERED: MAG HYDROX/AL HYDROX/SIMETH 30 ML ORAL.SUSP PO PRN (23:00)
[2019-11-15] MEDS ORDERED: MAGNESIUM HYDROXIDE 2,400 MG/30 ML ORAL.SUSP. PO PRN (23:00)
[2019-11-15] MEDS: CARBIDOPA/LEVODOPA 25/100MG TABLET PO SCH (23:31)
[2019-11-15] MEDS: lamoTRIgine 100 MG TABLET. PO SCH (23:32)
[2019-11-15] MEDS: INSULIN GLARGINE SYRINGE. SQ SCH (23:33)
[2019-11-15] MEDS: DONEPEZIL HCL 5 MG TABLET. PO SCH (23:34)
[2019-11-15] MEDS: CARVEDILOL 12.5 MG TABLET PO SCH (23:35)
[2019-11-16] MEDS: LEVOTHYROXINE 75 MCG TABLET PO SCH (06:01)
[2019-11-16 06:05] VITALS: BP 166/74
[2019-11-16] MEDS ORDERED: DEXTROSE 50% 25 GM / 50ML DISP.SYRIN. IV PRN (07:45)
[2019-11-16] MEDS: lamoTRIgine 100 MG TABLET. PO SCH ×2 (08:22→22:01)
[2019-11-16] MEDS: CARVEDILOL 12.5 MG TABLET PO SCH ×2 (08:23→17:32)
[2019-11-16] MEDS: ASPIRIN ENTERIC COATED 81 MG TABLET.DR. PO SCH (08:23)
[2019-11-16] MEDS: LISINOPRIL 20 MG TABLET PO SCH (08:24)
[2019-11-16] MEDS: metFORMIN 500 MG TABLET PO SCH ×2 (08:24→17:32)
[2019-11-16] MEDS: CARBIDOPA/LEVODOPA 25/100MG TABLET PO SCH ×4 (08:27→22:02)
[2019-11-16] MEDS ORDERED: FUROSEMIDE 40 MG/4 ML VIAL IVP ONE (09:00)
[2019-11-16] MEDS ORDERED: CEFDINIR 300 MG CAPSULE PO SCH (09:00)
[2019-11-16] MEDS ORDERED: rOPINIRole 0.25 MG TABLET. PO SCH (09:00)
[2019-11-16] MEDS: INSULIN LISPRO 300 UNITS/3 ML VIAL. SQ SCH ×3 (09:07→17:35)
--- NOTE | 2019-11-16 10:33 | RAD ---
CHEST AP ONLY Clinical indications: Shortness of breath. COMPARISON: June 06, 2019. Findings: No acute lung infiltrate or pleural effusion or pulmonary edema or lung mass or pneumothorax is seen. The heart size, pulmonary vasculature, mediastinum and both ayan are stable. Impression: No acute radiographic abnormality is seen. Electronically signed by: Edgardo Ospina MD (11/16/2019 10:30 AM) [facility] [place]
[2019-11-16 11:00] VITALS: BP 160/66
[2019-11-16] MEDS ORDERED: VANCOMYCIN PER PHARMACY MC PRN (11:45)
[2019-11-16] MEDS ORDERED: VANCOMYCIN 2 GM in IV NORMAL SALINE 500ML 500 ML IV ONE (12:00)
[2019-11-16] MEDS: CHOLECALCIFEROL (VITAMIN D3) 1,000 UNIT TABLET PO SCH (13:11)
[2019-11-16] MEDS: CYANOCOBALAMIN (VITAMIN B-12) 1,000 MCG TABLET. PO SCH (13:11)
[2019-11-16] MEDS: MAGNESIUM OXIDE 400 MG TABLET PO SCH (13:11)
[2019-11-16] MEDS: MULTIVITAMIN with MINERAL TABLET. PO SCH (13:11)
[2019-11-16 15:00] VITALS: BP 147/58
[2019-11-16] MEDS: HYDROcodone/APAP 5/325MG 1 TAB TABLET PO PRN ×2 (16:22→17:50)
[2019-11-16] MEDS ORDERED: fentaNYL PF 250 MCG/5 ML VIAL IV PRN (17:45)
[2019-11-16] MEDS: ARIPiprazole 5 MG TABLET PO SCH (18:45)
[2019-11-16 19:30] VITALS: BP 139/53
[2019-11-16] MEDS ORDERED: ARIPiprazole 5 MG TABLET PO SCH (21:00)
[2019-11-16] MEDS: NON FORMULARY ITEM (Pravastatin Sodium 1 TAB) PO SCH (21:00)
--- NOTE | 2019-11-16 21:12 | PDOC ---
Exam Note: Boris Note: Please also refer to the separate dictated note~for this date of service dictated separately.~Patient seen individually. Discussed the patient with Nursing staff reviewed the chart.~Reviewed interim history and current functioning. Reviewed vital signs,~Labs/ Radiology~and current medications noted below. Continue current treatment with the changes noted in the dictated addendum note Assessment: Vital Signs/I&O: Vital Signs Date Time Temp Pulse Resp B/P (MAP) Pulse Ox O2 Delivery O2 Flow Rate FiO2 11/16/19 20:00 Room Air 11/16/19 19:30 98.4 73 18 139/53 (81) 98 I & O 11/15/19 11/15/19 11/16/19 15:00 23:00 07:00 Output Total 2200 ml Balance -2200 ml Labs: Laboratory Tests Test 11/16/19 07:43 11/16/19 12:13 11/16/19 12:58 11/16/19 17:28 Glucose (Fingerstick) 184 mg/dL (70-99) H 147 mg/dL (70-99) H 237 mg/dL (70-99) H Creatine Kinase 44 U/L (26-192) Troponin I Quantitative < 0.017 ng/mL (0-0.055) Current Medications: Meds: Current Medications Medications (Trade) Dose Ordered Sig/Evy Route PRN Reason Start Time Stop Time Status Last Admin Dose Admin Furosemide (Lasix) 40 mg 1X ONCE IVP 11/16/19 09:00 11/16/19 09:01 DC 11/16/19 08:25 Aspirin (Aspirin Enteric Coated) 81 mg DAILY PO 11/16/19 09:00 11/16/19 08:23 Carbidopa/Levodopa (Sinemet 25/100) 1 tab QID PO 11/15/19 23:00 11/16/19 17:32 Cyanocobalamin (Vitamin B-12) 1,000 mcg DAILYWLUN PO 11/16/19 12:00 11/16/19 13:11 Donepezil HCl (Aricept) 5 mg QHS PO 11/15/19 23:00 11/15/19 23:34 Levothyroxine Sodium (Synthroid) 75 mcg DAILY06 PO 11/16/19 06:00 11/16/19 06:01 Carvedilol (Coreg) 25 mg BIDWMEALS PO 11/15/19 23:00 11/16/19 17:32 Vitamin D (Vitamin D3) 1,000 unit DAILYWLUN PO 11/16/19 12:00 11/16/19 13:11 Lisinopril (Prinivil) 20 mg DAILY PO 11/16/19 09:00 11/16/19 08:24 Insulin Glargine (Lantus Syringe) 12 unit QHS SQ 11/15/19 23:00 11/15/19 23:33 Lamotrigine (LaMICtal) 150 mg BID PO 11/15/19 23:00 11/16/19 08:22 Magnesium Oxide (Magnesium Oxide) 400 mg DAILYWLUN PO 11/16/19 12:00 11/16/19 13:11 Metformin HCl (Glucophage) 1,000 mg BIDWMEALS PO 11/16/19 08:00 11/16/19 17:32 Multivitamins/ Calcium (Thera-M Plus) 1 tab DAILYWLUN PO 11/16/19 12:00 11/16/19 13:11 Nifedipine (Procardia Xl) 60 mg DAILY PO 11/16/19 09:00 11/16/19 08:24 Insulin Human Lispro (HumaLOG) 0-9 UNITS TIDWMEALS SQ 11/16/19 08:00 11/16/19 17:35 Vancomycin HCl (Vanco Per Pharmacy) 1 each PRN DAILY PRN MC SEE COMMENTS 11/16/19 11:45 11/16/19 13:54 Vancomycin HCl 2 gm/Sodium Chloride 500 ml @ 250 mls/hr 1X ONCE IV 11/16/19 12:00 11/16/19 13:59 DC 11/16/19 13:11 Acetaminophen/ Hydrocodone Bitart (Lortab 5/325) 1 tab PRN Q6HRS PRN PO MODERATE PAIN 11/16/19 16:00 11/16/19 17:50 I have reviewed the current psychotropics carefully including drug interactions. Risk benefit ratio favors no change other than as noted in my dictated progress note. Diagnosis: Problems: (1) Bipolar 1 disorder, mixed (2) Generalized muscle weakness (3) Severe depression (4) Change in mental status (5) Syncopal episodes (6) Parkinson disease (7) Anxiety disorder HUSSAIN SUN MD Nov 16, 2019 21:12
[2019-11-16] MEDS: DONEPEZIL HCL 5 MG TABLET. PO SCH (22:00)
[2019-11-16] MEDS: LACTOBACILLUS RHAMNOSUS GG 1 CAPSULE. PO SCH (22:01)
[2019-11-16] MEDS: INSULIN GLARGINE SYRINGE. SQ SCH (22:16)
[2019-11-16 23:01] VITALS: BP 124/43
--- NOTE | 2019-11-17 00:08 | HP ---
ADMIT DATE: 11/15/2019 HISTORY OF PRESENT ILLNESS: A 79-year-old female who came in with increased swelling to her legs as well as increased difficulty breathing. The patient had noticed more shortness of breath and orthopnea. The patient was initially seen in the Emergency Room and checked over for DVTs of her leg and that was negative; however, the patient was found to be in mild congestive heart failure and the patient was admitted to the hospital for diuresis and further evaluation of her acute on top of chronic diastolic heart failure. The patient had an elevated BNP of over 1000. The patient's symptoms seem to confirm that. PAST MEDICAL HISTORY: The patient has a history of encephalopathy, Alzheimer's and Parkinson's disease, CHF, coronary stent placement, hypertension, DVT, fibroid, urinary tract infection, osteoarthritis, orthopedic surgery, endocrine disorders, diabetes, hypothyroidism, thalassemia, psychiatric problems, bipolar disorder, depression, anemia. She has a sickle cell trait. IMMUNIZATIONS: Pneumococcal influenza and tetanus are all up-to-date. ALLERGIES: She has allergies to ATORVASTATIN, IODINE AND PIOGLITAZONE. SOCIAL HISTORY: The patient denies smoking, alcohol or drug use. FAMILY HISTORY: Positive for father with hypertension and mother as well, diabetes in the father as well as coronary artery disease in the father. MEDICATIONS: The patient's medications were reconciled in the usual fashion; benazepril 5 mg, pravastatin 80, carvedilol 25 b.i.d., nifedipine 60, fosinopril 40, aspirin, Lamictal 150 b.i.d., carbidopa/levodopa 25/100 and magnesium oxide as well as polyethylene glycol. SOCIAL HISTORY: No smoking, alcohol or drug use. Lives at home. REVIEW OF SYSTEMS: The patient does have some real weight gain here over the last week or two, increase orthopnea, dyspnea. No chest pain. Denies nausea, vomiting, melena, hematochezia, or hematemesis and neurologically intact, baseline for her, she does have elements of bipolar disease. OBJECTIVE: VITAL SIGNS: Blood pressure 124/43, respiratory rate 18, pulse 72, afebrile. HEENT: The patient's head was atraumatic, normocephalic. Eyes: PERRLA without jaundice. Mouth and throat were normal. NECK: Supple without JVD or thyromegaly. LUNGS: Show some rales in the bases otherwise. CARDIOVASCULAR: Regular sinus rhythm. ABDOMEN: Soft, nontender, protuberant. EXTREMITIES: No clubbing, cyanosis. Trace edema. NEUROLOGIC: The patient was alert and oriented x 3, baseline for her, she does have some resting tremor and she also has some mild short-term memory loss as well as being speech is very fast and racquet consistent with her bipolar disorder. IMPRESSION: Acute on top of chronic diastolic heart failure, manic depressive disorder, dyspnea, orthopnea, thalassemia, anemia, type 2 diabetes, moderate protein malnutrition. PLAN: The patient continued to be monitored carefully, IV diuresis. Also, see Psychiatry as well. She has an appointment, so we will be seeing her while here in the hospital. PERLA LORENZO MD DR: WALESKA/kenneth JOB#: [id number] / [id number]
[2019-11-17] MEDS: HYDROcodone/APAP 5/325MG 1 TAB TABLET PO PRN ×4 (02:02→21:39)
[2019-11-17] MEDS: LEVOTHYROXINE 75 MCG TABLET PO SCH (06:01)
[2019-11-17 06:40] VITALS: BP 173/67
[2019-11-17] MEDS: metFORMIN 500 MG TABLET PO SCH ×2 (08:31→17:39)
[2019-11-17] MEDS: ASPIRIN ENTERIC COATED 81 MG TABLET.DR. PO SCH (08:31)
[2019-11-17] MEDS: CARVEDILOL 12.5 MG TABLET PO SCH ×2 (08:31→17:40)
[2019-11-17] MEDS: LACTOBACILLUS RHAMNOSUS GG 1 CAPSULE. PO SCH ×2 (08:32→21:37)
[2019-11-17] MEDS: lamoTRIgine 100 MG TABLET. PO SCH ×2 (08:33→21:38)
[2019-11-17] MEDS: CARBIDOPA/LEVODOPA 25/100MG TABLET PO SCH ×4 (08:34→21:38)
[2019-11-17] MEDS: LISINOPRIL 20 MG TABLET PO SCH (08:34)
[2019-11-17] MEDS: INSULIN LISPRO 300 UNITS/3 ML VIAL. SQ SCH ×3 (08:45→17:44)
[2019-11-17] MEDS: ARIPiprazole 5 MG TABLET PO SCH (08:46)
[2019-11-17] MEDS ORDERED: ARIPiprazole 5 MG TABLET PO SCH ×2 (09:00→21:00)
[2019-11-17 11:00] VITALS: BP 131/53
[2019-11-17] MEDS: MULTIVITAMIN with MINERAL TABLET. PO SCH (12:31)
[2019-11-17] MEDS: CYANOCOBALAMIN (VITAMIN B-12) 1,000 MCG TABLET. PO SCH (12:31)
[2019-11-17] MEDS: CHOLECALCIFEROL (VITAMIN D3) 1,000 UNIT TABLET PO SCH (12:31)
[2019-11-17] MEDS: MAGNESIUM OXIDE 400 MG TABLET PO SCH (12:31)
[2019-11-17] MEDS ORDERED: VANCOMYCIN 1.25 GM in IV NORMAL SALINE 250ML 250 ML IV SCH (13:00)
[2019-11-17] MEDS: FUROSEMIDE 20 MG TABLET PO SCH (14:23)
[2019-11-17] MEDS: LIDOCAINE (700MG/PATCH) PATCH. TD SCH (14:24)
[2019-11-17 15:00] VITALS: BP 136/63
[2019-11-17 19:27] VITALS: BP 145/62
[2019-11-17] MEDS ORDERED: ARIPiprazole 2 MG TABLET PO ONE (21:00)
[2019-11-17] MEDS ORDERED: PATCH REMOVAL. MC SCH (21:00)
[2019-11-17] MEDS: NON FORMULARY ITEM (Pravastatin Sodium 1 TAB) PO SCH (21:00)
--- NOTE | 2019-11-17 21:15 | PDOC ---
Exam Note: Boris Note: Please also refer to the separate dictated note~for this date of service dictated separately.~Patient seen individually. Discussed the patient with Nursing staff reviewed the chart.~Reviewed interim history and current functioning. Reviewed vital signs,~Labs/ Radiology~and current medications noted below. Continue current treatment with the changes noted in the dictated addendum note Assessment: Vital Signs/I&O: Vital Signs Date Time Temp Pulse Resp B/P (MAP) Pulse Ox O2 Delivery O2 Flow Rate FiO2 11/17/19 19:30 Room Air 11/17/19 19:27 98.4 73 18 145/62 (89) 96 I & O 11/16/19 11/16/19 11/17/19 15:00 23:00 07:00 Intake Total 400 ml 1530 ml 700 ml Output Total 900 ml 1600 ml 1600 ml Balance -500 ml -70 ml -900 ml Labs: Laboratory Tests Test 11/16/19 21:34 11/17/19 08:27 11/17/19 12:14 11/17/19 17:34 Glucose (Fingerstick) 149 mg/dL (70-99) H 149 mg/dL (70-99) H 141 mg/dL (70-99) H 141 mg/dL (70-99) H Current Medications: Meds: Current Medications Medications (Trade) Dose Ordered Sig/Evy Route PRN Reason Start Time Stop Time Status Last Admin Dose Admin Vancomycin HCl 1.25 gm/Sodium Chloride 250 ml @ 167 mls/hr Q24H IV 11/17/19 13:00 11/17/19 14:25 Furosemide (Lasix) 20 mg DAILY PO 11/17/19 13:15 11/17/19 14:23 Lidocaine (Lidoderm) 2 patch DAILY TD 11/17/19 14:00 11/17/19 14:24 I have reviewed the current psychotropics carefully including drug interactions. Risk benefit ratio favors no change other than as noted in my dictated progress note. Diagnosis: Problems: (1) Bipolar 1 disorder, mixed (2) Severe depression (3) Change in mental status (4) Syncopal episodes (5) Parkinson disease (6) Anxiety disorder HUSSAIN SUN MD Nov 17, 2019 21:15
[2019-11-17] MEDS: DONEPEZIL HCL 5 MG TABLET. PO SCH (21:36)
[2019-11-17] MEDS: INSULIN GLARGINE SYRINGE. SQ SCH (21:46)
[2019-11-17 22:38] VITALS: BP 139/59
--- NOTE | 2019-11-17 23:11 | PN ---
DATE: SUBJECTIVE: A 79-year-old female in with cellulitis of her legs as well as congestive heart failure. The patient is making good progress, good diuresis 1600 mL yesterday. The patient's legs look much improved. She continues on IV antibiotic therapy. OBJECTIVE: VITAL SIGNS: Blood pressure 140/60, respiratory rate 18, pulse 70, afebrile, did have a low-grade temperature of 99.1. GENERAL: The patient is alert and oriented. LUNGS: Diminished, but basically clear. CARDIOVASCULAR: Regular sinus rhythm, 1/6 systolic ejection murmur. ABDOMEN: Soft, protuberant. EXTREMITIES: Without clubbing, cyanosis markedly improved, some hyperpigmentation from venous stasis, but other than that, the patient looks markedly improved there. IMPRESSION: Again of acute on top chronic diastolic heart failure as well as cellulitis to the legs, type 2 diabetes, manic depressive disorder, dyspnea, orthopnea, thalassemia, protein malnutrition. PLAN: Continue with IV antibiotic therapy, diuresis and make further evaluation for possible discharge in the a.m. PERLA LORENZO MD DR: WALESKA/kenneth JOB#: [id number] / [id number]
[2019-11-18] MEDS: HYDROcodone/APAP 5/325MG 1 TAB TABLET PO PRN (03:56)
[2019-11-18] MEDS: LEVOTHYROXINE 75 MCG TABLET PO SCH (05:44)
[2019-11-18 06:10] VITALS: BP 143/66
[2019-11-18 06:10] LABS: BASO # 0.1 x10^3/uL (0.0-0.2); BASO % 1 % (0-3); EOS # 0.2 x10^3/uL (0.0-0.7); EOS % 2 % (0-3); HEMOGLOBIN 8.7 g/dL (12.0-15.5); LYMPH # 1.5 x10^3/uL (1.0-4.8); LYMPH % 18 % (24-48); MEAN CORPUSCULAR HEMOGLOBIN 20 pg (25-35); MEAN CORPUSCULAR HGB CONC 31 g/dL (31-37); MEAN CORPUSCULAR VOLUME 66 fL (79-100); MONO # 0.4 x10^3/uL (0.0-1.1); MONO % 4 % (0-9); NEUT # 6.5 x10^3uL (1.8-7.7); NEUT % 75 % (31-73); PLATELET COUNT 347 x10^3/uL (140-400); RED BLOOD COUNT 4.25 x10^6/uL (3.50-5.40); RED CELL DISTRIBUTION WIDTH 15.6 % (11.5-14.5); WHITE BLOOD COUNT 8.7 x10^3/uL (4.0-11.0)
[2019-11-18 06:16] LABS: CALCIUM 8.7 mg/dL (8.5-10.1); GFR 65.1; POTASSIUM 3.9 mmol/L (3.5-5.1)
[2019-11-18 07:59] VITALS: BP 149/71
[2019-11-18] MEDS: metFORMIN 500 MG TABLET PO SCH (08:17)
[2019-11-18] MEDS: CARVEDILOL 12.5 MG TABLET PO SCH (08:18)
[2019-11-18] MEDS: INSULIN LISPRO 300 UNITS/3 ML VIAL. SQ SCH ×2 (08:24→12:22)
[2019-11-18] MEDS: ASPIRIN ENTERIC COATED 81 MG TABLET.DR. PO SCH (08:38)
[2019-11-18] MEDS: LACTOBACILLUS RHAMNOSUS GG 1 CAPSULE. PO SCH (08:38)
[2019-11-18] MEDS: FUROSEMIDE 20 MG TABLET PO SCH (08:39)
[2019-11-18] MEDS: LISINOPRIL 20 MG TABLET PO SCH (08:40)
[2019-11-18] MEDS: LIDOCAINE (700MG/PATCH) PATCH. TD SCH (08:41)
[2019-11-18] MEDS: CARBIDOPA/LEVODOPA 25/100MG TABLET PO SCH ×2 (08:41→13:24)
[2019-11-18] MEDS: lamoTRIgine 100 MG TABLET. PO SCH (08:42)
[2019-11-18] MEDS ORDERED: ARIPiprazole 5 MG TABLET PO SCH (09:00)
[2019-11-18] MEDS ORDERED: LIDOCAINE (700MG/PATCH) PATCH. TD SCH ×2 (09:00)
[2019-11-18 11:30] VITALS: BP 122/61
[2019-11-18] MEDS ORDERED: NON FORMULARY ITEM (Cranberry Extract (Cranberry) 500 MG) PO SCH (12:00)
[2019-11-18] MEDS ORDERED: OMEGA-3 FATTY ACIDS/FISH OIL 1,000 MG CAPSULE. PO SCH (12:00)
[2019-11-18] MEDS: CHOLECALCIFEROL (VITAMIN D3) 1,000 UNIT TABLET PO SCH (12:20)
[2019-11-18] MEDS: CYANOCOBALAMIN (VITAMIN B-12) 1,000 MCG TABLET. PO SCH (12:20)
[2019-11-18] MEDS: MULTIVITAMIN with MINERAL TABLET. PO SCH (12:20)
[2019-11-18] MEDS: MAGNESIUM OXIDE 400 MG TABLET PO SCH (12:20)
[2019-11-18] MEDS ORDERED: ARIP5TAB13 PO (12:46)
[2019-11-18] MEDS ORDERED: VANC1.2514 IV (12:46)
[2019-11-18] MEDS ORDERED: LACT1CAP19 PO (12:46)
[2019-11-18] MEDS ORDERED: DEXT50DI3 IV (12:46)
[2019-11-18] MEDS ORDERED: FURO20TA3 PO (12:46)
[2019-11-18] MEDS ORDERED: LIDO700A21 TD (12:46)
[2019-11-18] MEDS ORDERED: VANC1VIA3 MC (12:46)
[2019-11-18 13:03] LABS: VANC TR 7.7 mcg/mL (10.0-20.0)
[2019-11-18] MEDS ORDERED: VANCOMYCIN 1 GM in IV NORMAL SALINE 250ML 250 ML IV SCH (14:00)
[2019-11-18] MEDS ORDERED: HYDR-2155 PO (14:45)
--- NOTE | 2019-11-18 21:32 | CONS ---
DATE OF CONSULTATION: 11/16/2019 This late entry of 11/16/2019 covers the elements not covered in my initial note. SUBJECTIVE: I met with the patient in the evening. IDENTIFYING DATA: The patient is a 79-year-old -Al[place]ian female, seen in ICU bed #6, [facility], for a Psychiatric consult requested by Dr. Rogers on account of the patient's manic symptoms. She has been paranoid, anxious, restless, hyperverbal and the son has indicated that all of these manic symptoms have worsened since we tapered and stopped the Abilify. I have been asked to consult to make further recommendation from a psychiatric standpoint. CHIEF COMPLAINT: "I'm okay. How are you? I feel I have a lot of energy since I came off the Abilify. I know they say I talk too much, but I feel I have to." HISTORY OF PRESENT ILLNESS: The patient has a long history of bipolar disorder. I have followed her at my outpatient office and she had been stable for a period of time. We attempted to taper the Abilify, it was finally stopped and since then, she has appeared more manic. She was admitted with bilateral lower extremity swelling and discoloration of the left lower leg. There is no history of trauma. She does have a history of DVT and is on no blood thinners other than takes aspirin daily. No clear psychotic symptoms, suicidal or homicidal ideation. PAST PSYCHIATRIC HISTORY: Positive for bipolar disorder. PAST MEDICAL HISTORY: Positive for diabetes mellitus, hyperlipidemia, hypertension, Parkinson's disease, congestive heart failure, anemia. ALLERGIES: LIPITOR, IODINE and PIOGLITAZONE. FAMILY HISTORY: Noncontributory. SOCIAL HISTORY: She is a nonsmoker. She [place] at [place] and their son helps take care of them. No alcohol or drug abuse history. MENTAL STATUS EXAMINATION: The patient was seen individually on the evening of 11/16/2019. She is extremely hyperverbal, talking constantly, somewhat loud at times, but did redirect. She readily recognized me. Abstraction fair, computation somewhat impaired, language function intact, attention span short. Mood and affect somewhat grandiose, though she minimizes this. No psychotic symptoms, suicidal or homicidal ideation. IMPRESSION: Bipolar disorder, manic versus hypomanic, recurrent; anxiety disorder, unspecified. Rest as above. RECOMMENDATIONS: From a psychiatric standpoint, I would recommend continuing her current psychotropics and restarting Abilify 5 mg a day x 1 and then 2.5 mg a day. We may have to increase this to 5 mg a day daily, but will make that decision after the first day or two. This should help stabilize her mood, reduce some of the manic symptoms and she has tolerated it well in the past. Dr. Rogers, thank you for the opportunity to participate in your patient's care. We will follow with you. MAN Kareem SUN MD DR: JHONATAN/kenneth JOB#: [id number] / [id number]
--- NOTE | 2019-11-18 21:34 | PN ---
DATE: 11/17/2019 PSYCHIATRIC PROGRESS NOTE This late entry 11/17/2019 covers elements not covered in my initial note. SUBJECTIVE: I met with the patient in the evening. Per nursing report, the patient remains somewhat hypomanic, hyperverbal and family is still concerned about her manic symptoms. She did get a total of 5 mg of Abilify previous evening to restart her psychotropics, which we discontinued as an outpatient and on 11/17/2019, she received 2.5 mg, but given her ongoing hypomania, we will increase it scheduled 5 mg a day. She also remains on Lamictal 150 mg twice a day and Aricept. She has been treated for her cellulitis, peripheral vascular disease, heart failure and as this stabilizes, hopefully, some of her mood symptoms will stabilize as well. REVIEW OF SYSTEMS: Positive for tiredness. No CV, , GI system symptoms on review. MENTAL STATUS EXAM: Reasonably oriented. Speech coherent, rapid at times. Abstraction fair, computation impaired, language function intact. Mood and affect remain somewhat hypomanic. LABORATORY DATA: Reviewed. IMPRESSION: Unchanged from initial note. PLAN: No change from initial note, but increase the Abilify to 5 a day. HUSSAIN SUN MD DR: JHONATAN/kenneth JOB#: [id number] / [id number]
--- NOTE | 2019-11-25 19:03 | DS ---
DATE OF DISCHARGE: 11/18/2019 HOSPITAL COURSE: A 79-year-old female patient initially came in with increased swelling to her legs with increased redness, swelling. The patient was thought to have some mild congestive heart failure, acute on top of chronic diastolic heart failure. The patient also has cellulitis to her legs, history of thalassemia. The patient was placed on IV antibiotic therapy and aggressive pulmonary toilet as well as diuresis. The patient was also seen by Dr. Kendall, her clinical psychiatrist who has evaluated the patient over the years. The patient has made relatively good progress, although still fairly weak, was receiving PT, OT and continued to be monitored carefully. The patient made good progress. She was transferred to the skilled unit for further rehabilitation care. 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 PLAN: The patient continued to be monitored on the skilled unit with PT, OT and a low-sodium diet and make further evaluation on her as indicated. PERLA LORENZO MD DR: WALESKA/kenneth JOB#: [id number] / [id number]
== END 2019-11-18 15:46 | disposition swing bed (61) | DRG 602 ==
LOC: ER 17:47 → ICU 21:00 → ENPENDDIS 11-18 17:00
PROVIDERS: ADMIT Family Medicine; ATTEND Family Medicine
DX: L03.116 Cellulitis of left lower limb (principal); I50.33 Acute on chronic diastolic (congestive) heart failure; E44.0 Moderate protein-calorie malnutrition; I11.0 Hypertensive heart disease with heart failure; L03.115 Cellulitis of right lower limb; E11.9 Type 2 diabetes mellitus without complications; D56.9 Thalassemia, unspecified; D57.3 Sickle-cell trait; F31.9 Bipolar disorder, unspecified; F41.9 Anxiety disorder, unspecified; E78.00 Pure hypercholesterolemia, unspecified; Z68.31 Body mass index [BMI] 31.0-31.9, adult; E03.9 Hypothyroidism, unspecified; G20 Parkinson's disease; G30.9 Alzheimer's disease, unspecified; Z79.82 Long term (current) use of aspirin; Z79.899 Other long term (current) drug therapy; Z82.49 Family history of ischemic heart disease and other diseases of the circulatory system; Z83.3 Family history of diabetes mellitus; Z86.718 Personal history of other venous thrombosis and embolism; Z95.5 Presence of coronary angioplasty implant and graft; F02.80 Dementia in other diseases classified elsewhere, unspecified severity, without behavioral disturbance, psychotic disturbance, mood disturbance, and anxiety; E78.5 Hyperlipidemia, unspecified; M19.90 Unspecified osteoarthritis, unspecified site; Z88.8 Allergy status to other drugs, medicaments and biological substances; Z91.041 Radiographic dye allergy status
CPT/HCPCS: 36415; 71045; 80048; 80053; 80202; 81001; 82550; 82947; 83880; 84484; 85025; 85610; 85730; 87086; 93970; J1815; J1940; J3370; J7040; J7050; 97530; 99285-25

== ENCOUNTER 2019-11-18 12:40 | Inpatient (IN) | payer MEDICARE, BC ==
[~2019-11-18] VITALS: Ht 165.1 cm; Wt 80.0 kg
[2019-11-18] MEDS ORDERED: LACT1CAP19 PO (12:46)
[2019-11-18] MEDS ORDERED: VANC1.2514 IV (12:46)
[2019-11-18] MEDS ORDERED: LIDO700A21 TD (12:46)
[2019-11-18] MEDS ORDERED: ARIP5TAB13 PO (12:46)
[2019-11-18] MEDS ORDERED: VANC1VIA3 MC (12:46)
[2019-11-18] MEDS ORDERED: FURO20TA3 PO (12:46)
[2019-11-18] MEDS ORDERED: DEXT50DI3 IV (12:46)
[2019-11-18] MEDS ORDERED: HYDR-2155 PO (14:45)
--- NOTE | 2019-11-18 16:46 | NUR ---
PT admitted to [facility] for rehabilitation and PT/OT support following admission to the ICU for CHF exacerbation and cellulitis of BLE. VSS. Denies nausea and states pain is well managed at 5/10. PT on room air, satting at 95+%. See assessment completed per flow sheet. PIV/ABX therapy: PT has saline locked 20G in LFA which is patent and flushes; no blood return noted. PT prescribed IV antibiotic therapy (Vancomycin) for continued treatment of cellulitis. Please review orders and EMar for further detail. Pain: PT reports acute pain in BLE r/t cellulitis and edema. Pain well managed well with bilateral lidocaine patches, elevation, and PRN pain medications. Mental/Psychoosocial status: PT is AO4, but sometimes forgetful. Easily reoriented. PT is very pleasant, talkative and cooperative. PT has HX of Bipolar Disorder and depression. PT takes abilify which is effective in managing her symptoms. Provider attempted to wean patient off Abilify during ICU hospitalization, but PT did not tolerate dosage decrease from 5mg to 2.5mg and was restarted on original dose. PT Please review orders and EMar for further detail. PT with living son, both of whom check on her and visit her daily. ADL Functional status: PT is able to stand up and bear own weight, slightly unsteady on her feet. Typically walks with walker or cane at home. Standby assist with gait belt on most activities. PT able to stand up and sit down on chair/bedside commode/bed through her own efforts. PT is fully independent with eating, and standby assist on hygiene and toileting. PT/OT notified of orders.
[2019-11-18 17:04] VITALS: BP 149/71
[2019-11-18] MEDS ORDERED: DOCUSATE SODIUM 100 MG CAPSULE PO PRN (20:45)
[2019-11-18] MEDS ORDERED: POLYETHYLENE GLYCOL 3350 17 GM PACKET. PO PRN (20:45)
[2019-11-18] MEDS ORDERED: ACETAMINOPHEN 325 MG TABLET PO PRN (20:45)
[2019-11-18] MEDS ORDERED: DEXTROSE 50% 25 GM / 50ML DISP.SYRIN. IV PRN ×2 (20:45→21:00)
[2019-11-18] MEDS ORDERED: NON FORMULARY ITEM (Magnesium Hydroxide (Milk Of Magnesia) 2,400 MG) PO PRN (20:45)
[2019-11-18] MEDS ORDERED: VANCOMYCIN 1 GM VIAL. IV PRN (20:45)
[2019-11-18] MEDS ORDERED: CARVEDILOL 12.5 MG TABLET PO SCH (21:00)
[2019-11-18] MEDS: PRAVASTATIN 80 MG PO SCH (21:00)
[2019-11-18] MEDS: PATCH REMOVAL. MC SCH (21:00)
[2019-11-18] MEDS ORDERED: MAGNESIUM HYDROXIDE 2,400 MG/30 ML ORAL.SUSP. PO PRN (21:15)
[2019-11-18] MEDS ORDERED: MAG HYDROX/AL HYDROX/SIMETH 30 ML ORAL.SUSP PO PRN (21:15)
[2019-11-18] MEDS: INSULIN GLARGINE SYRINGE. SQ SCH (22:00)
[2019-11-18] MEDS: DONEPEZIL HCL 5 MG TABLET. PO SCH (22:22)
[2019-11-18] MEDS: LACTOBACILLUS RHAMNOSUS GG 1 CAPSULE. PO SCH (22:23)
[2019-11-18] MEDS: CARBIDOPA/LEVODOPA 25/100MG TABLET PO SCH (22:23)
[2019-11-18] MEDS: lamoTRIgine 100 MG TABLET. PO SCH (22:24)
--- NOTE | 2019-11-18 22:30 | PN ---
DATE: 11/18/2019 SUBJECTIVE: A 79-year-old female in with congestive heart failure as well as cellulitis to her legs. The patient actually will be discharged today and be placed on a swing bed. OBJECTIVE: VITAL SIGNS: Blood pressure 149/70, respiratory rate 13, pulse 72, afebrile. LUNGS: Diminished. CARDIOVASCULAR: Stable. EXTREMITIES: Legs show marked improvement. IMPRESSION: Therefore, an acute on top of chronic diastolic heart failure as well as that of generalized weakness, deconditioning, Parkinson's disease, history of manic depressive disorder. PLAN: Plan for discharge and transfer to the swing bed. PERLA LORENZO MD DR: WALESKA/kenneth JOB#: [id number] / [id number]
[2019-11-19] MEDS: VANCOMYCIN 1 GM in IV NORMAL SALINE 250ML 250 ML IV SCH ×2 (02:00→13:48)
--- NOTE | 2019-11-19 03:58 | NUR ---
Pt knowledgeable about medications and administration routines. She expresses concern about insulin useage in the hospital versus home useage. This nurse discussed with pt physician orders and administration requirements of nurses. Insulin concerns will be discussed with pt and physician during rounds. Will continue to monitor.
[2019-11-19] MEDS: LEVOTHYROXINE 75 MCG TABLET PO SCH (06:00)
[2019-11-19 06:12] VITALS: BP 162/71
[2019-11-19] MEDS: INSULIN LISPRO 300 UNITS/3 ML VIAL. SQ SCH ×3 (07:59→16:39)
[2019-11-19] MEDS: LIDOCAINE (700MG/PATCH) PATCH. TD SCH (08:32)
[2019-11-19] MEDS: LISINOPRIL 20 MG TABLET PO SCH (08:33)
[2019-11-19] MEDS: ASPIRIN ENTERIC COATED 81 MG TABLET.DR. PO SCH (08:33)
[2019-11-19] MEDS: LACTOBACILLUS RHAMNOSUS GG 1 CAPSULE. PO SCH ×2 (08:33→21:56)
[2019-11-19] MEDS: ARIPiprazole 5 MG TABLET PO SCH (08:34)
[2019-11-19] MEDS: CARBIDOPA/LEVODOPA 25/100MG TABLET PO SCH ×4 (08:34→21:56)
[2019-11-19] MEDS: metFORMIN 500 MG TABLET PO SCH ×2 (08:35→18:08)
[2019-11-19] MEDS: FUROSEMIDE 20 MG TABLET PO SCH (08:35)
[2019-11-19] MEDS: CARVEDILOL 12.5 MG TABLET PO SCH ×2 (08:35→18:09)
[2019-11-19] MEDS: lamoTRIgine 100 MG TABLET. PO SCH ×2 (08:40→21:56)
[2019-11-19] MEDS ORDERED: VANCOMYCIN HCL IN DEXTROSE IV SCH (09:00)
[2019-11-19] MEDS ORDERED: [UNRECOGNIZED DRUG - OTHER] IV SCH (09:00)
[2019-11-19] MEDS ORDERED: NON FORMULARY ITEM (Cranberry Extract (Cranberry) 500 MG) PO SCH (12:00)
[2019-11-19] MEDS: MULTIVITAMIN with MINERAL TABLET. PO SCH (12:20)
[2019-11-19] MEDS: CYANOCOBALAMIN (VITAMIN B-12) 1,000 MCG TABLET. PO SCH (12:20)
[2019-11-19] MEDS: CHOLECALCIFEROL (VITAMIN D3) 1,000 UNIT TABLET PO SCH (12:20)
[2019-11-19] MEDS: OMEGA-3 FATTY ACIDS/FISH OIL 1,000 MG CAPSULE. PO SCH (12:20)
--- NOTE | 2019-11-19 12:54 | NUR ---
Swing Bed Nursing Note: Patient Handbook for Alf given to patient. Nursing Problem: PT/OT eval and treat Cognitive/Behavioral: Patient alert and oriented x4. Pleasant, talkative, cooperative with staff. Pain: Pt reports tolerable pain level of 4/10 in bilateral ankles. Lidocaine patches placed. Respiratory Status: Patient on RA. No cough noted. No SOA. Skin: Clean, dry and intact. Hyperpigmentation and trace edema noted to BLE. Bowel/Bladder Continence: Continent of B&B, last BM 11/18/19 ADL Functional Status: Patient is x1 stand by assist for bed mobility, transfers, ambulation, toileting, dressing, and bathing. Pt is independent with meals.
[2019-11-19 14:26] VITALS: BP 150/66
[2019-11-19 18:42] VITALS: BP 199/67
[2019-11-19] MEDS: PATCH REMOVAL. MC SCH (21:00)
[2019-11-19] MEDS: PRAVASTATIN 80 MG PO SCH (21:00)
[2019-11-19] MEDS: INSULIN GLARGINE SYRINGE. SQ SCH (21:00)
[2019-11-19] MEDS: DONEPEZIL HCL 5 MG TABLET. PO SCH (21:56)
[2019-11-19 23:35] VITALS: BP 142/71
[2019-11-20] MEDS: HYDROcodone/APAP 5/325MG 1 TAB TABLET PO PRN ×3 (00:49→21:37)
[2019-11-20] MEDS: VANCOMYCIN 1 GM in IV NORMAL SALINE 250ML 250 ML IV SCH ×2 (03:15→13:11)
[2019-11-20] MEDS: VANCOMYCIN PER PHARMACY MC PRN (03:35)
--- NOTE | 2019-11-20 03:35 | NUR ---
Pharmacy Vancomycin Dosing Note S:Consulted to monitor and dose vancomycin started 11/16/19. O:ALFREDITO CABRALES is a 79 year old F with Cellulitis, . Height: 5 feet, 5 inches Weight: 84.4 kg Gary Body Weight: 57.00 Adjusted Body Weight: 67.96 Dosing Weight: Actual Other Antibiotics: LABS: Last BUN: 20 Last Creatinine: 1.0 Creatinine Clearance: 50 Last WBC: 8.7 Last Procalcitonin: Tmax (past 24 hours): 98 Microbiology: I/O: 1860/344 Drug Levels: Last Trough level: 14.0 on 11/20/19 at 0130 Last dose given 11/19/19 at 1425 Vancomycin Dosing: Loading Dose: Dosing Weight: Actual Target Trough: 10-20 A: Based on: Trough, Actual Wt and CrCl P: 1. 11/20/19 Continue Vancomycin 1000 mg IV q12h 2. Follow up level on in 5 to 7 days as needed 3. Pharmacy will continue to monitor, follow and adjust therapy as needed. AYLA ODELL RPH, 11/20/19 0335 Signed: 11/20/19 at 0337 by AYLA ODELL RPH PHA
--- NOTE | 2019-11-20 05:14 | NUR ---
Swing Bed Nursing Note: Nursing Problem: PT/OT Cognitive/Behavioral: A&O x4, forgetful; pleasant, cooperative, talkative Pain: Pain in bilat ankles, swollen, tight 01/21; Lidocaine patches removed PM; pain medication given this PM shift Respiratory Status: RA, CTA Skin: Intact; hyperpigmentation and trace edema bilat ankles Bowel/Bladder Continence: Continent of B&B, LBM 11/18/19 ADL Functional Status: x1 stand by assist; independent ADLs
[2019-11-20] MEDS: LEVOTHYROXINE 75 MCG TABLET PO SCH (06:00)
[2019-11-20 06:01] VITALS: BP 155/63
[2019-11-20] MEDS: CARVEDILOL 12.5 MG TABLET PO SCH ×2 (08:39→17:20)
[2019-11-20] MEDS: ASPIRIN ENTERIC COATED 81 MG TABLET.DR. PO SCH (08:40)
[2019-11-20] MEDS: metFORMIN 500 MG TABLET PO SCH ×2 (08:40→17:21)
[2019-11-20] MEDS: LISINOPRIL 20 MG TABLET PO SCH (08:41)
[2019-11-20] MEDS: FUROSEMIDE 20 MG TABLET PO SCH (08:41)
[2019-11-20] MEDS: LACTOBACILLUS RHAMNOSUS GG 1 CAPSULE. PO SCH ×2 (08:41→21:01)
[2019-11-20] MEDS: CARBIDOPA/LEVODOPA 25/100MG TABLET PO SCH ×4 (08:41→21:00)
[2019-11-20] MEDS: lamoTRIgine 100 MG TABLET. PO SCH ×2 (08:42→21:00)
[2019-11-20] MEDS: ARIPiprazole 5 MG TABLET PO SCH (08:42)
[2019-11-20] MEDS: INSULIN LISPRO 300 UNITS/3 ML VIAL. SQ SCH ×3 (08:46→17:00)
[2019-11-20] MEDS: LIDOCAINE (700MG/PATCH) PATCH. TD SCH (08:47)
--- NOTE | 2019-11-20 09:55 | NUR ---
PT REPORTS INCREASED SWELLING IN RIGHT LOWER LEG/ANKLE. UPON ASSESSMENT MILD SWELLING NOTED, PT IS COMPLAINING OF PAIN 7/10 TO BILATERAL ANKLES. WILL GIVE PAIN MEDICATION AND CTM.
[2019-11-20] MEDS: CYANOCOBALAMIN (VITAMIN B-12) 1,000 MCG TABLET. PO SCH (11:47)
[2019-11-20] MEDS: OMEGA-3 FATTY ACIDS/FISH OIL 1,000 MG CAPSULE. PO SCH (11:47)
[2019-11-20] MEDS: CHOLECALCIFEROL (VITAMIN D3) 1,000 UNIT TABLET PO SCH (11:47)
[2019-11-20] MEDS: MULTIVITAMIN with MINERAL TABLET. PO SCH (11:53)
[2019-11-20] MEDS ORDERED: FUROSEMIDE 20 MG TABLET PO SCH (15:45)
[2019-11-20] MEDS ORDERED: FUROSEMIDE 20 MG TABLET PO ONE (16:15)
[2019-11-20] MEDS: MINERAL OIL/PETROLATUM TOPICAL CREAM 113GM JAR. TP PRN (17:22)
[2019-11-20 18:23] VITALS: BP 176/55
[2019-11-20] MEDS: DONEPEZIL HCL 5 MG TABLET. PO SCH (21:00)
[2019-11-20] MEDS: PRAVASTATIN 80 MG PO SCH (21:00)
[2019-11-20] MEDS: PATCH REMOVAL. MC SCH (21:00)
[2019-11-20] MEDS: INSULIN GLARGINE SYRINGE. SQ SCH (21:03)
--- NOTE | 2019-11-20 23:34 | NUR ---
Swing Bed Nursing Note: Nursing Problem: PT/OT Cognitive/Behavioral: A&O x4 VERY TALKATIVE, pleasant, cooperative, forgetful Pain: pt has pain 9/10 bilaterally in ankles, ankles are swollen. Lortab was given with HS meds. ankles are elevated while pt lays in bed. Respiratory Status: RA, CTA Skin: Intact; hyperpigmentation and trace edema bilat ankles Bowel/Bladder Continence: Continent of B&B, LBM 11/19/19 . pt states she get to the toilet as soon as she has the urge but always ends up starting to urinate in the brief but will finish in the toilet. ADL Functional Status: x1 stand by assist; independent ADLs
[2019-11-21] MEDS: VANCOMYCIN 1 GM in IV NORMAL SALINE 250ML 250 ML IV SCH ×2 (01:43→14:21)
[2019-11-21] MEDS: LEVOTHYROXINE 75 MCG TABLET PO SCH (05:51)
[2019-11-21 06:22] VITALS: BP 178/74
[2019-11-21 06:35] LABS: BASO # 0.1 x10^3/uL (0.0-0.2); BASO % 1 % (0-3); EOS # 0.2 x10^3/uL (0.0-0.7); EOS % 3 % (0-3); HEMATOCRIT 30.6 % (36.0-47.0); HEMOGLOBIN 9.4 g/dL (12.0-15.5); LYMPH # 1.3 x10^3/uL (1.0-4.8); LYMPH % 18 % (24-48); MEAN CORPUSCULAR HEMOGLOBIN 20 pg (25-35); MEAN CORPUSCULAR HGB CONC 31 g/dL (31-37); MEAN CORPUSCULAR VOLUME 66 fL (79-100); MONO # 0.3 x10^3/uL (0.0-1.1); MONO % 5 % (0-9); NEUT # 5.3 x10^3uL (1.8-7.7); NEUT % 73 % (31-73); PLATELET COUNT 413 x10^3/uL (140-400); RED BLOOD COUNT 4.61 x10^6/uL (3.50-5.40); RED CELL DISTRIBUTION WIDTH 17.1 % (11.5-14.5); WHITE BLOOD COUNT 7.3 x10^3/uL (4.0-11.0)
[2019-11-21 06:40] LABS: CALCIUM 9.4 mg/dL (8.5-10.1); CREATININE 0.9 mg/dL (0.6-1.0); GFR 73.5
[2019-11-21] MEDS: INSULIN LISPRO 300 UNITS/3 ML VIAL. SQ SCH ×3 (08:00→17:00)
[2019-11-21] MEDS: LIDOCAINE (700MG/PATCH) PATCH. TD SCH ×2 (09:00→10:00)
[2019-11-21] MEDS: ARIPiprazole 5 MG TABLET PO SCH (09:05)
[2019-11-21] MEDS: CARBIDOPA/LEVODOPA 25/100MG TABLET PO SCH ×4 (09:08→21:03)
[2019-11-21] MEDS: metFORMIN 500 MG TABLET PO SCH ×2 (09:08→17:27)
[2019-11-21] MEDS: LISINOPRIL 20 MG TABLET PO SCH (09:09)
[2019-11-21] MEDS: lamoTRIgine 100 MG TABLET. PO SCH ×2 (09:09→21:03)
[2019-11-21] MEDS: ASPIRIN ENTERIC COATED 81 MG TABLET.DR. PO SCH (09:10)
[2019-11-21] MEDS: FUROSEMIDE 20 MG TABLET PO SCH (09:11)
[2019-11-21] MEDS: CARVEDILOL 12.5 MG TABLET PO SCH ×2 (09:11→17:26)
[2019-11-21] MEDS: LACTOBACILLUS RHAMNOSUS GG 1 CAPSULE. PO SCH ×2 (09:12→21:03)
--- NOTE | 2019-11-21 11:08 | NUR ---
This AM, STOREROOM ATTENDANT went to help pt out of bed to ambulate to dining room for breakfast. STOREROOM ATTENDANT reported to RN that pt was refusing to go to breakfast and that she was not going to get out of bed today at all. According to the form setter steel forms RN report, the pt reportedly ambulates independently and is a stand-by assist and performs own activities of daily living. RN went in pt's room and explained to pt the policies and procedures of unit and pt expectations. Pt insisted that her legs would start swelling if she ambulated, that on Thursday when she was walking around unit, they "Swelled up as big as balloons." RN told pt that I was sorry her legs started swelling, but we would elevate them after breakfast. Pt kept insisting that she did not want to go down to breakfast. RN asked pt if she had been to the breakfast yet this morning and she said that she had. RN then suggested sitting up in chair or the side of bed. The pt then told the nurse that she had her "own regimen and routine at home" that she participated in. RN apologized to pt and explained that I was just trying to to do my job and that I was going by what I was told in report from the form setter steel forms nurse. Pt then wanted to speak to public message service supervisor and Dr. The charge nurse was notified about situation and educated the pt as well about unit policies and expectations. Pt insisted that we were not respecting her pt rights and that she had the right to refuse therapy. Charge nurse tried explaining multiple times to pt that she did have the right to refuse but that we would have to document the refusal. Pt became upset about hearing this. Dr. Rogers came and assessed pt. suggested her leaving AMA since she already had her own plan set in place. RN told pt that the priority now was to keep her happy. STOREROOM ATTENDANT changed pt's bed and gave shower.
[2019-11-21] MEDS: CHOLECALCIFEROL (VITAMIN D3) 1,000 UNIT TABLET PO SCH (12:16)
[2019-11-21] MEDS: OMEGA-3 FATTY ACIDS/FISH OIL 1,000 MG CAPSULE. PO SCH (12:16)
[2019-11-21] MEDS: CYANOCOBALAMIN (VITAMIN B-12) 1,000 MCG TABLET. PO SCH (12:16)
[2019-11-21] MEDS: MULTIVITAMIN with MINERAL TABLET. PO SCH (12:16)
[2019-11-21 13:04] LABS: HYPOCHROMIA PRESENT; POLYCHROMASIA PRESENT
[2019-11-21 13:06] LABS: ANISOCYTOSIS PRESENT; MICROCYTOSIS PRESENT; PLT ESTIMATE ADEQUATE (ADEQUATE)
[2019-11-21 13:07] LABS: OVALOCYTES PRESENT
[2019-11-21 13:08] LABS: SCHISTOCYTES OCC; TARGET CELLS PRESENT
[2019-11-21 13:10] LABS: STOMATOCYTES PRESENT; TEAR DROP CELLS PRESENT
--- NOTE | 2019-11-21 13:39 | PN ---
DATE: SUBJECTIVE: The patient seems to be making fairly good progress. Blood pressure is elevated 178/74, respiration 15, pulse 66. OBJECTIVE: GENERAL: Afebrile. GENERAL: The patient is alert and oriented. LUNGS: Diminished throughout, poor movement of air. CARDIOVASCULAR: Regular sinus rhythm. ABDOMEN: Soft, diffuse tenderness, but basically doing better. EXTREMITIES: Her legs she thinks are swollen, the patient does have stasis dermatitis. They feel warm to her. She has got ice packs on it. Apparently, she is mobilizing fairly well with PT, OT and making fairly good progress on those issues there. Blood sugars are being monitored carefully and will continue to do so. Otherwise, we will continue to monitor accordingly. IMPRESSION: Acute on top of chronic diastolic heart failure, generalized weakness, receiving PT, OT deconditioning, Parkinson's disease. PLAN: We will continue to monitor her accordingly on all those issues there. PERLA LORENZO MD DR: WALESKA/kenneth JOB#: [id number] / [id number]
--- NOTE | 2019-11-21 15:24 | NUR ---
Bed was soaked this AM. Asked pt why she didn't let us know that earlier and that we would change her bed. Pt stated, "Ya'll educated me 1000 times today on the unit policy so I didn't have the chance to tell anyone." Told pt that she was more than welcome to let us know when her bed was wet and that we would change it now. Pt then stated that we could just change it when she got up to take her shower. Linens changed upon pt showering.
--- NOTE | 2019-11-21 16:38 | NUR ---
RN started pt's 's outpatient infusion therapy. Pt was talking to and stated, "I didn't feel comfortable telling the Dr. I had to go to the bathroom and so I ended up urinating all over bed and floor. "I had to change my whole bed and everything." RN asked pt, "You changed your linens?" I thought Marie, the FINANCIAL INVESTIGATOR changed them?" Pt stated firmly, " I WAS TALKING TO MY ." RN then turned around and walked out of room. Pt has told multiple staff members that she urinated all over bed and ground and that she has had to clean everything up. The FINANCIAL INVESTIGATOR wiped down floor and bed and changed linens while pt was in shower. Also, Occupational therapy assisted pt in showering.
[2019-11-21] MEDS: VANCOMYCIN PER PHARMACY MC PRN (17:07)
--- NOTE | 2019-11-21 18:06 | NUR ---
Swing Bed Nursing Note Patient Handbook for Assisted given to patient. Nursing Problem: PT/OT eval and treat, cellulitis bilat Lower leg Cognitive/Behavioral: Alert and Oriented x 4 Pain: Pain reported in lower legs and ankles. Applied lidocaine patches as ordered, pt elevates legs Respiratory Status: Room Air Skin: intact Bowel/Bladder Continence: Pt is continent of bowel and bladder, stress incontinence. ADL Functional Status: Pt is able to dress and feed self. Pt performs own elevation of legs. Pt ambulates with walker independently. Pt is a standby assist.
[2019-11-21 18:08] VITALS: BP 189/79
[2019-11-21] MEDS: PATCH REMOVAL. MC SCH (20:58)
[2019-11-21] MEDS: PRAVASTATIN 80 MG PO SCH (21:00)
[2019-11-21] MEDS: DONEPEZIL HCL 5 MG TABLET. PO SCH (21:03)
[2019-11-21] MEDS: MINERAL OIL/PETROLATUM TOPICAL CREAM 113GM JAR. TP PRN (21:03)
[2019-11-21] MEDS: INSULIN GLARGINE SYRINGE. SQ SCH (21:16)
--- NOTE | 2019-11-21 23:59 | NUR ---
Swing Bed Nursing Note: Nursing Problem: PT/OT Cognitive/Behavioral: A&O x4 Very talkative, cooperative, forgetful Pain: Pt reports pain 3/10 bilaterally in ankles, and states that her ankles are swollen. Pt denies need for Lortab at this time. Assisted pt to apply lotion to legs and elevate them on pillows in bed. Respiratory Status: RA, CTA Skin: Intact; hyperpigmentation and trace edema bilat ankles Bowel/Bladder Continence: Continent of B&B, LBM 11/21/19 . Pt has some stress incontinence for which she wears pads. ADL Functional Status: x1 stand by assist with ADLs. Pt ambulates with walker, but report that at times she is weaker due to her Parkinson's.
[2019-11-22] MEDS: VANCOMYCIN 1 GM in IV NORMAL SALINE 250ML 250 ML IV SCH ×2 (02:24→14:14)
[2019-11-22 03:10] VITALS: BP 181/81
[2019-11-22] MEDS: HYDROcodone/APAP 5/325MG 1 TAB TABLET PO PRN (03:14)
[2019-11-22 04:05] VITALS: BP 159/80
[2019-11-22] MEDS: LEVOTHYROXINE 75 MCG TABLET PO SCH (05:34)
[2019-11-22 06:23] VITALS: BP 135/66
[2019-11-22] MEDS: INSULIN LISPRO 300 UNITS/3 ML VIAL. SQ SCH ×3 (08:00→17:00)
[2019-11-22] MEDS: LACTOBACILLUS RHAMNOSUS GG 1 CAPSULE. PO SCH ×2 (08:53→21:16)
[2019-11-22] MEDS: CARVEDILOL 12.5 MG TABLET PO SCH ×2 (08:54→17:20)
[2019-11-22] MEDS: ASPIRIN ENTERIC COATED 81 MG TABLET.DR. PO SCH (08:54)
[2019-11-22] MEDS: FUROSEMIDE 20 MG TABLET PO SCH (08:54)
[2019-11-22] MEDS: metFORMIN 500 MG TABLET PO SCH ×2 (08:54→17:19)
[2019-11-22] MEDS: lamoTRIgine 100 MG TABLET. PO SCH ×2 (08:55→21:17)
[2019-11-22] MEDS: ARIPiprazole 5 MG TABLET PO SCH (08:55)
[2019-11-22] MEDS: CARBIDOPA/LEVODOPA 25/100MG TABLET PO SCH ×4 (08:55→21:16)
[2019-11-22] MEDS: LISINOPRIL 20 MG TABLET PO SCH (08:55)
[2019-11-22] MEDS: LIDOCAINE (700MG/PATCH) PATCH. TD SCH (08:57)
[2019-11-22] MEDS: CHOLECALCIFEROL (VITAMIN D3) 1,000 UNIT TABLET PO SCH (12:13)
[2019-11-22] MEDS: CYANOCOBALAMIN (VITAMIN B-12) 1,000 MCG TABLET. PO SCH (12:13)
[2019-11-22] MEDS: OMEGA-3 FATTY ACIDS/FISH OIL 1,000 MG CAPSULE. PO SCH (12:13)
[2019-11-22] MEDS: MULTIVITAMIN with MINERAL TABLET. PO SCH (12:13)
--- NOTE | 2019-11-22 15:12 | NUR ---
Swing Bed Nursing Note: Nursing Problem: PT/OT Cognitive/Behavioral: A&O x4 Very talkative, cooperative with staff Pain: Pt reports pain 4/10 bilaterally in ankles. Pt denies need for Lortab. Scheduled lidocaine patches applied to ankles and assisted patient with elevating legs on pillows in bed. Respiratory Status: RA, LCTA. No cough noted. No SOA noted. Skin: Intact; hyperpigmentation and trace edema bilat ankles Bowel/Bladder Continence: Continent of B&B, LBM 11/21/19 . Pt has some stress incontinence for which she wears pads. ADL Functional Status: Patient is able to perform all ADLs independently including: bathing, dressing, grooming, toileting, post-hygiene use, bed mobility, transfers, and eating. Patient is stand by assist for ambulation with walker.
[2019-11-22 18:20] VITALS: BP 160/75
[2019-11-22] MEDS: PATCH REMOVAL. MC SCH (21:00)
[2019-11-22] MEDS: PRAVASTATIN 80 MG PO SCH (21:17)
[2019-11-22] MEDS: DONEPEZIL HCL 5 MG TABLET. PO SCH (21:17)
[2019-11-22] MEDS: INSULIN GLARGINE SYRINGE. SQ SCH (21:24)
--- NOTE | 2019-11-22 23:09 | NUR ---
Swing Bed Nursing Note: Nursing Problem: PT/OT Cognitive/Behavioral: A&O x4 Very talkative, cooperative, forgetful Pain: Pt denies pain this evening. Assisted pt to apply lotion to legs and elevate them on pillows in bed. Respiratory Status: RA, CTA Skin: Intact; hyperpigmentation and trace edema bilat ankles Bowel/Bladder Continence: Continent of B&B, LBM 11/22/19 . Pt has some stress incontinence for which she wears pads/brief. ADL Functional Status: x1 stand by assist with ADLs. Pt ambulates with walker, but report that at times she is weaker due to her Parkinson's. Pt needs reminds to use walker appropriately.
[2019-11-22] MEDS: MINERAL OIL/PETROLATUM TOPICAL CREAM 113GM JAR. TP PRN (23:30)
[2019-11-23] MEDS: VANCOMYCIN 1 GM in IV NORMAL SALINE 250ML 250 ML IV SCH (02:12)
[2019-11-23] MEDS: LEVOTHYROXINE 75 MCG TABLET PO SCH (04:45)
[2019-11-23 04:54] VITALS: BP 179/65
[2019-11-23] MEDS: HYDROcodone/APAP 5/325MG 1 TAB TABLET PO PRN (05:27)
[2019-11-23] MEDS: metFORMIN 500 MG TABLET PO SCH ×2 (09:09→16:44)
[2019-11-23] MEDS: ARIPiprazole 5 MG TABLET PO SCH (09:10)
[2019-11-23] MEDS: lamoTRIgine 100 MG TABLET. PO SCH ×2 (09:10→20:53)
[2019-11-23] MEDS: CARVEDILOL 12.5 MG TABLET PO SCH ×2 (09:10→16:44)
[2019-11-23] MEDS: LACTOBACILLUS RHAMNOSUS GG 1 CAPSULE. PO SCH ×2 (09:10→20:53)
[2019-11-23] MEDS: ASPIRIN ENTERIC COATED 81 MG TABLET.DR. PO SCH (09:10)
[2019-11-23] MEDS: CARBIDOPA/LEVODOPA 25/100MG TABLET PO SCH ×4 (09:10→20:53)
[2019-11-23] MEDS: LISINOPRIL 20 MG TABLET PO SCH (09:11)
[2019-11-23] MEDS: FUROSEMIDE 20 MG TABLET PO SCH (09:11)
[2019-11-23] MEDS: LIDOCAINE (700MG/PATCH) PATCH. TD SCH (09:12)
[2019-11-23] MEDS: INSULIN LISPRO 300 UNITS/3 ML VIAL. SQ SCH ×3 (09:21→16:45)
[2019-11-23] MEDS: CHOLECALCIFEROL (VITAMIN D3) 1,000 UNIT TABLET PO SCH (11:54)
[2019-11-23] MEDS: OMEGA-3 FATTY ACIDS/FISH OIL 1,000 MG CAPSULE. PO SCH (11:54)
[2019-11-23] MEDS: MULTIVITAMIN with MINERAL TABLET. PO SCH (11:54)
[2019-11-23] MEDS: CYANOCOBALAMIN (VITAMIN B-12) 1,000 MCG TABLET. PO SCH (11:54)
[2019-11-23] MEDS: CLINDAMYCIN HCL 150 MG CAPSULE PO SCH ×2 (14:07→20:53)
--- NOTE | 2019-11-23 15:08 | NUR ---
Swing Bed Nursing Note: Nursing Problem: PT/OT Cognitive/Behavioral: A&O x4 Very talkative, cooperative with staff Pain: No c/o pain noted thus far this shift. Scheduled lidocaine patches applied to ankles and assisted patient with elevating legs on pillows in bed. Respiratory Status: RA, LCTA. No cough noted. No SOA noted. Skin: Intact; hyperpigmentation and trace edema bilat ankles Bowel/Bladder Continence: Continent of B&B, LBM 11/22/19 . Pt has some stress incontinence for which she wears pads. ADL Functional Status: Patient is able to perform all ADLs independently including: bathing, dressing, grooming, toileting, post-hygiene use, bed mobility, transfers, and eating. Patient is stand by assist for ambulation with walker.
[2019-11-23 16:42] VITALS: BP 167/74
[2019-11-23] MEDS: PATCH REMOVAL. MC SCH (20:51)
[2019-11-23] MEDS: DONEPEZIL HCL 5 MG TABLET. PO SCH (20:53)
[2019-11-23] MEDS: PRAVASTATIN 80 MG PO SCH (20:54)
[2019-11-23] MEDS: INSULIN GLARGINE SYRINGE. SQ SCH (21:07)
--- NOTE | 2019-11-24 01:35 | NUR ---
Swing Bed Nursing Note: Nursing Problem: PT/OT Cognitive/Behavioral: A&O x4 Very talkative, cooperative, forgetful Pain: Pt denies pain this evening. Assisted pt to apply lotion to legs and elevate them on pillows in bed. Respiratory Status: RA, CTA Skin: Intact; hyperpigmentation and trace edema bilat ankles Bowel/Bladder Continence: Continent of B&B, LBM 11/23/19 . Pt has some stress incontinence for which she wears pads/brief. ADL Functional Status: x1 stand by assist with ADLs. Pt ambulates with walker, but report that at times she is weaker due to her Parkinson's. Pt needs reminds to use walker appropriately.
[2019-11-24] MEDS: HYDROcodone/APAP 5/325MG 1 TAB TABLET PO PRN (02:56)
[2019-11-24] MEDS: LEVOTHYROXINE 75 MCG TABLET PO SCH (05:06)
[2019-11-24 05:26] VITALS: BP 154/74
[2019-11-24] MEDS: INSULIN LISPRO 300 UNITS/3 ML VIAL. SQ SCH ×3 (08:00→16:54)
[2019-11-24] MEDS: FUROSEMIDE 20 MG TABLET PO SCH (08:54)
[2019-11-24] MEDS: ARIPiprazole 5 MG TABLET PO SCH (08:54)
[2019-11-24] MEDS: metFORMIN 500 MG TABLET PO SCH ×2 (08:54→16:54)
[2019-11-24] MEDS: LACTOBACILLUS RHAMNOSUS GG 1 CAPSULE. PO SCH ×2 (08:54→20:53)
[2019-11-24] MEDS: ASPIRIN ENTERIC COATED 81 MG TABLET.DR. PO SCH (08:54)
[2019-11-24] MEDS: lamoTRIgine 100 MG TABLET. PO SCH ×2 (08:55→20:53)
[2019-11-24] MEDS: LISINOPRIL 20 MG TABLET PO SCH (08:55)
[2019-11-24] MEDS: CARBIDOPA/LEVODOPA 25/100MG TABLET PO SCH ×4 (08:55→20:53)
[2019-11-24] MEDS: CARVEDILOL 12.5 MG TABLET PO SCH ×2 (08:55→16:53)
[2019-11-24] MEDS: LIDOCAINE (700MG/PATCH) PATCH. TD SCH (09:00)
[2019-11-24] MEDS: CLINDAMYCIN HCL 150 MG CAPSULE PO SCH ×3 (09:41→20:53)
[2019-11-24] MEDS: CHOLECALCIFEROL (VITAMIN D3) 1,000 UNIT TABLET PO SCH (11:52)
[2019-11-24] MEDS: MULTIVITAMIN with MINERAL TABLET. PO SCH (11:52)
[2019-11-24] MEDS: OMEGA-3 FATTY ACIDS/FISH OIL 1,000 MG CAPSULE. PO SCH (11:52)
[2019-11-24] MEDS: CYANOCOBALAMIN (VITAMIN B-12) 1,000 MCG TABLET. PO SCH (11:52)
[2019-11-24] MEDS ORDERED: CLIN150C14 PO (13:52)
[2019-11-24] MEDS ORDERED: MINE454C9 TP (13:52)
[2019-11-24] MEDS ORDERED: LIDO700A21 TD (13:52)
--- NOTE | 2019-11-24 13:55 | DISCH ---
HOME HEALTH DISCHARGE/MEDS DISCHARGE INFORMATION: Discharge Date: Nov 25, 2019 Final Diagnosis: bilateral lower extermity cellulits, CHF,parkinson's disease Condition on Discharge: Stable CODE STATUS: Code Status: Full HOME HEALTH: Face to Face: I certify this patient is under my care and that I, or a nurse practitioner or physician's office assistant working with me, had a face to face encounter that meets the physician face to face encounter requirements with this patient on 11/24/19. [facility] For: Assess Cardiopulm Status, Assess & Educate Safety, Assess/Skilled Observatio Physical Therapy For: Evalulation/Treatment Occupational Therapy For: Evaluation/Treatment Homebound Status Met By: Poor coordination w/ amb., Fatigue w/ amb. POST DISCHARGE ORDERS: Activity Instructions for Disc: Activity as tolerated Weight Bearing Status after Di: No restrictions DIET AFTER DISCHARGE: ADA CHECKS AFTER DISCHARGE: Checks after discharge: Check blood sugar, ac/hs CERTIFICATION STATEMENT: Certification Statement: Based on the above finding, I certify that this patient is confined to the home and needs intermittent senior care care, physical therapy and/or speech therapy, or continues to need occupational therapy.~ This patient is under my care, and I have initiated the establishment of the plan of care.~ This patient will be followed by myself or a community physician who will periodically review the plan of care. DISCHARGE MEDICATIONS: Home Meds Active Scripts Hydrocodone Bit/Acetaminophen (HYDROCODONE-APAP 5-325 ) 1 Each Tablet, 2 TAB PO PRN Q6HRS PRN for MODERATE PAIN, #60 TAB Prov:PERLA LORENZO MD 11/18/19 Furosemide (FUROSEMIDE) 20 Mg Tablet, 20 MG PO DAILY for edema for 30 Days, #30 TAB Prov:PERLA LORENZO MD 11/18/19 Lactobacillus Rhamnosus Gg (CULTURELLE) 1 Each Cap.sprink, 1 CAP PO BID for probiotic for 30 Days, #60 CAP 2 Refills Prov:PERLA LORENZO MD 11/18/19 Lidocaine (Lidocaine PATCH ) 1 Each Adh..patch, 1 PATCH TD DAILY for pain for 10 Days, #10 PATCH Prov:PERLA LORENZO MD 11/18/19 Dextrose 50 % In Water (DEXTROSE 50%-WATER SYRINGE) 50 Ml Disp.syrin, 12.5 GM IV PRN Q15MIN PRN for SEE COMMENTS for 30 Days, DIS.SYR Prov:PERLA LORENZO MD 11/18/19 Aripiprazole (ABILIFY) 5 Mg Tablet, 5 MG PO DAILY for depression for 30 Days, #30 TAB 3 Refills Prov:PERLA LORENZO MD 11/18/19 Vancomycin Hcl (VANCOMYCIN HCL) 1 Gm Vial, 1 EACH MC PRN DAILY PRN for SEE COMMENTS for 10 Days, EACH Prov:PERLA LORENZO MD 11/18/19 Vancomycin HCl in Dextrose 5 % (Vancomycin 1.25 Gram/250Ml-D5w) 1.25 Gm/250 Ml Plast..bag, 1.25 GM IV DAILY for cellulitis for 10 Days, EACH Prov:PERLA LORENZO MD 11/18/19 Polyethylene Glycol 3350 (MIRALAX) 17 Gm Powd.pack, 17 GM PO PRN DAILY PRN for constipation, #1 BOTTLE Prov:PERLA LORENZO MD 10/01/16 Docusate Sodium (COLACE) 100 Mg Capsule, 100 MG PO PRN BID PRN for CONSTIPATION, #60 CAP Prov:PERLA LORENZO MD 10/01/16 Reported Medications Insulin Aspart (NOVOLOG) 100 Unit/1 Ml Vial, 1-10 UNIT SQ QIDACHS for HYPERGLYCEMIA, VIAL 11/15/19 Insulin Glargine,Hum.rec.anlog (LANTUS SOLOSTAR) 100 Unit/1 Ml Insuln.pen, 12 UNIT SQ QHS for Diabetes LAST DOSE GIVEN: DATE: TIME: NEXT DOSE DUE: DATE: TIME: 06/07/19 Magnesium Oxide (Magnesium Oxide) 500 Mg Capsule, 400 MG PO DAILYWLUN for SUPP for 7 Days, #1 06/14/18 Cyanocobalamin (Vitamin B-12) (VITAMIN B-12) 1,000 Mcg Tablet, 1000 MCG PO DAILYWLUN for SUPPLEMENT LAST DOSE GIVEN: DATE: TODAY TIME: WITH LUNCH NEXT DOSE DUE: DATE: TOMORROW TIME: WITH LUNCH 09/19/16 Krill/Om-3/Dha/Epa/Phospho/Ast (KRILL OIL 1,000 MG SOFTGEL) 1 Each Capsule, 1 EACH PO DAILYWLUN for HEART HEALTH LAST DOSE GIVEN: DATE: TODAY TIME: WITH LUNCH NEXT DOSE DUE: DATE: TOMORROW TIME: WITH LUNCH 09/19/16 Cranberry Extract (CRANBERRY) 250 Mg Capsule, 500 MG PO DAILYWLUN for URINARY HEALTH NEXT DOSE DUE: DATE: RESTART TODAY TIME: WHEN YOU GET HOME 09/19/16 Nifedipine (NIFEDIPINE ER) 60 Mg Tablet.er, 60 MG PO DAILY for HIGH BLOOD PRESSURE LAST DOSE GIVEN: DATE: TODAY TIME: AM NEXT DOSE DUE: DATE: TOMORROW TIME: AM 09/19/16 Fosinopril Sodium (FOSINOPRIL SODIUM) 40 Mg Tablet, 20 MG PO DAILY for HIGH BLOOD PRESSURE LAST DOSE GIVEN: DATE: TODAY TIME: AM NEXT DOSE DUE: DATE: TOMORROW TIME: AM 09/19/16 Cholecalciferol (Vitamin D3) (VITAMIN D) 1,000 Unit Capsule, 1 CAP PO DAILYWLUN for BONE HEALTH LAST DOSE GIVEN: DATE: TODAY TIME: WITH LUNCH NEXT DOSE DUE: DATE: TOMORR TIME: WITH LUNCH 09/24/15 Carbidopa/Levodopa (CARBIDOPA-LEVODOPA 25-100 TAB) 1 Each Tablet, 1 EACH PO QID for PARKINSON'S TREMORS LAST DOSE GIVEN: DATE: TODAY TIME: AM NEXT DOSE DUE: DATE: TODAY TIME: AFTERNOON 09/24/15 Donepezil Hcl (DONEPEZIL HCL) 5 Mg Tablet, 1 TAB PO QHS for MEMORY LAST DOSE GIVEN: DATE: YESTER TIME: AT BEDTIME NEXT DOSE DUE: DATE: TODAY TIME: WITH BEDTIME 09/24/15 Lamotrigine (LAMICTAL) 150 Mg Tablet, 150 MG PO BID for mood stabilizer LAST DOSE GIVEN: DATE: TODAY TIME: AM NEXT DOSE DUE: DATE: TODAY TIME: PM 03/02/15 Magnesium Hydroxide (MILK OF MAGNESIA) 2,400 Mg/10 Ml Oral.susp, 2400 MG PO PRN QHS PRN for CONSTIPATION LAST DOSE GIVEN: DATE: NOT GIVEN TIME: NEXT DOSE DUE: DATE: TODAY TIME: IF NEEDED 03/02/15 Mag Hydrox/Al Hydrox/Simeth (ADVANCED ANTACID LIQUID) 355 Ml Oral.susp, 15 ML PO PRN AFTMEALHC PRN for HEARTBURN / GAS LAST DOSE GIVEN: DATE: NOT GIVEN TIME: NEXT DOSE DUE: DATE: TODAY TIME: IF NEEDED 03/02/15 Acetaminophen (TYLENOL) 325 Mg Tablet, 2 TAB PO PRN Q6HRS PRN for PAIN LAST DOSE GIVEN: DATE: TIME: NEXT DOSE DUE: DATE: TODAY TIME: IF NEEDED 03/02/15 Multivitamin (DAILY MULTIPLE VITAMIN) 1 Each Tablet, 1 EACH PO DAILYWLUN for SUPPLEMENT LAST DOSE GIVEN: DATE: TODAY TIME: WITH LUNCH NEXT DOSE DUE: DATE: TOMORROW TIME: WITH LUNCH 02/17/15 Metformin Hcl (METFORMIN HCL) 1,000 Mg Tablet, 1 TAB PO BIDWMEALS for HIGH BLOOD SUGAR LAST DOSE GIVEN: DATE: TODAY TIME: WITH BREAKFAST NEXT DOSE DUE: DATE: TODAY TIME: WITH DINNER 02/17/15 Carvedilol (CARVEDILOL) 25 Mg Tablet, 1 TAB PO BID for IRREGULAR HEARTRATE LAST DOSE GIVEN: DATE: TODAY TIME: AM NEXT DOSE DUE: DATE: TODAY TIME; PM 02/17/15 Levothyroxine Sodium (LEVOTHYROXINE SODIUM) 50 Mcg Tablet, 75 MCG PO DAILY06 for LOW THYROID HORMONES LAST DOSE GIVEN: DATE: TODAY TIME: AM NEXT DOSE DUE: DATE: TOMORROW TIME: AM 02/17/15 Pravastatin Sodium (PRAVASTATIN SODIUM) 80 Mg Tablet, 1 TAB PO QHS for HIGH CHOLESTEROL LAST DOSE GIVEN: DATE: YESTERDAY TIME: AT BEDTIME NEXT DOSE DUE: DATE: TODAY TIME: AT BEDTIME 02/17/15 Aspirin (ASPIR 81) 81 Mg Tablet.dr, 1 TAB PO DAILY for PREVENT BLOOD CLOTS LAST DOSE GIVEN: DATE: TODAY TIME: AM NEXT DOSE DUE: DATE: TOMORROW TIME: AM 02/17/15 PERLA LORENZO MD Nov 24, 2019 13:55
--- NOTE | 2019-11-24 14:29 | NUR ---
Swing Bed Nursing Note: Nursing Problem: PT/OT eval and treat Cognitive/Behavioral: A&O x4 Very talkative, cooperative with staff Pain: Pt c/o 12/22 pain in bilateral ankles. States she thinks it's because she did extra walking yesterday. Scheduled lidocaine patches applied to ankles and assisted patient with elevating legs on pillows in bed for comfort. Respiratory Status: RA, LCTA. No cough noted. No SOA noted. Skin: Intact; hyperpigmentation and trace edema bilat ankles Bowel/Bladder Continence: Continent of B&B, LBM 11/24/19 . Pt has some stress incontinence for which she wears pads. ADL Functional Status: Patient is able to perform all ADLs independently including: bathing, dressing, grooming, toileting, post-hygiene use, bed mobility, transfers, and eating. Patient is stand by assist for ambulation with walker.
[2019-11-24 17:28] VITALS: BP 160/69
[2019-11-24] MEDS: PATCH REMOVAL. MC SCH (20:52)
[2019-11-24] MEDS: INSULIN GLARGINE SYRINGE. SQ SCH (20:53)
[2019-11-24] MEDS: DONEPEZIL HCL 5 MG TABLET. PO SCH (20:53)
[2019-11-24] MEDS: PRAVASTATIN 80 MG PO SCH (20:53)
--- NOTE | 2019-11-24 21:23 | NUR ---
Swing Bed Nursing Note: Nursing Problem: PT/OT eval and treat Cognitive/Behavioral: A&O x4 Very talkative, cooperative with staff Pain: Pt denies pain. She did extra walking today. Lidocaine patches removed and assisted patient with elevating legs on pillows in bed for comfort. Respiratory Status: RA, LCTA. No cough noted. No SOA noted. Skin: Intact; hyperpigmentation and trace edema bilat ankles Bowel/Bladder Continence: Continent of B&B, LBM 11/24/19 . Pt has some stress incontinence for which she wears pads. ADL Functional Status: Patient is able to perform all ADLs independently including: bathing, dressing, grooming, toileting, post-hygiene use, bed mobility, transfers, and eating. Patient is stand by assist for ambulation with walker.
[2019-11-25] MEDS: LEVOTHYROXINE 75 MCG TABLET PO SCH (04:58)
[2019-11-25 05:18] VITALS: BP 156/66
[2019-11-25] MEDS: ASPIRIN ENTERIC COATED 81 MG TABLET.DR. PO SCH (08:49)
[2019-11-25] MEDS: CARBIDOPA/LEVODOPA 25/100MG TABLET PO SCH ×2 (08:49→14:19)
[2019-11-25] MEDS: metFORMIN 500 MG TABLET PO SCH (08:50)
[2019-11-25] MEDS: lamoTRIgine 100 MG TABLET. PO SCH (08:50)
[2019-11-25] MEDS: ARIPiprazole 5 MG TABLET PO SCH (08:50)
[2019-11-25] MEDS: CLINDAMYCIN HCL 150 MG CAPSULE PO SCH ×2 (08:51→14:19)
[2019-11-25] MEDS: FUROSEMIDE 20 MG TABLET PO SCH (08:51)
[2019-11-25] MEDS: LISINOPRIL 20 MG TABLET PO SCH (08:52)
[2019-11-25] MEDS: LACTOBACILLUS RHAMNOSUS GG 1 CAPSULE. PO SCH (08:52)
[2019-11-25 08:53] VITALS: BP 156/66
[2019-11-25] MEDS: CARVEDILOL 12.5 MG TABLET PO SCH (08:53)
[2019-11-25] MEDS: LIDOCAINE (700MG/PATCH) PATCH. TD SCH (08:54)
[2019-11-25] MEDS: INSULIN LISPRO 300 UNITS/3 ML VIAL. SQ SCH ×2 (09:02→12:06)
[2019-11-25] MEDS: CHOLECALCIFEROL (VITAMIN D3) 1,000 UNIT TABLET PO SCH (11:56)
[2019-11-25] MEDS: CYANOCOBALAMIN (VITAMIN B-12) 1,000 MCG TABLET. PO SCH (11:56)
[2019-11-25] MEDS: MULTIVITAMIN with MINERAL TABLET. PO SCH (11:56)
[2019-11-25] MEDS: OMEGA-3 FATTY ACIDS/FISH OIL 1,000 MG CAPSULE. PO SCH (11:56)
--- NOTE | 2019-11-25 17:23 | NUR ---
Nursing Notes: Patient discharged to home with home health. Patient given discharge instructions with verbal understanding. Patient sent home with all patient belongings. No concerns at this time.
== END 2019-11-25 17:28 | disposition home health service (06) | DRG 947 ==
LOC: 1 SOUTH 16:23 → LND 11-19 14:39
PROVIDERS: ADMIT Family Medicine; ATTEND Family Medicine
DX: R53.1 Weakness (principal); I50.33 Acute on chronic diastolic (congestive) heart failure; L03.116 Cellulitis of left lower limb; L03.115 Cellulitis of right lower limb; F31.9 Bipolar disorder, unspecified; G20 Parkinson's disease; R03.0 Elevated blood-pressure reading, without diagnosis of hypertension; Z88.8 Allergy status to other drugs, medicaments and biological substances; Z79.899 Other long term (current) drug therapy
CPT/HCPCS: 36415; 80048; 80202; 82947; 85025; J1815; J3370; J7050; 97110; 97116; 97530; 97535

== ENCOUNTER 2020-05-05 13:00 | Emergency (ER) | payer MEDICARE, BC ==
[~2020-05-05] VITALS: Ht 165.1 cm; Wt 80.0 kg
[~2020-05-05 13:00] MED LIST changes: +CLIN150C14 PO; +DEXT50DI3 IV; +FURO20TA3 PO; +HYDR-2155 PO; +LACT1CAP19 PO; +LIDO700A21 TD; +MINE454C9 TP; +VANC1.2514 IV; +VANC1VIA3 MC
[2020-05-05 13:59] VITALS: BP 156/66
[2020-05-05 14:14] LABS: BASO # 0.1 x10^3/uL (0.0-0.2); BASO % 1 % (0-3); EOS % 0 % (0-3); HEMATOCRIT 28.8 % (36.0-47.0); HEMOGLOBIN 9.1 g/dL (12.0-15.5); LYMPH % 14 % (24-48); MEAN CORPUSCULAR HEMOGLOBIN 21 pg (25-35); MEAN CORPUSCULAR HGB CONC 32 g/dL (31-37); MEAN CORPUSCULAR VOLUME 65 fL (79-100); MONO # 0.3 x10^3/uL (0.0-1.1); MONO % 4 % (0-9); NEUT # 5.8 x10^3uL (1.8-7.7); NEUT % 81 % (31-73); PLATELET COUNT 264 x10^3/uL (140-400); RED BLOOD COUNT 4.41 x10^6/uL (3.50-5.40); RED CELL DISTRIBUTION WIDTH 18.9 % (11.5-14.5); WHITE BLOOD COUNT 7.1 x10^3/uL (4.0-11.0)
[2020-05-05 14:25] LABS: CALCIUM 9.4 mg/dL (8.5-10.1); CREATININE 1.1 mg/dL (0.6-1.0); GFR 58.3; POTASSIUM 3.8 mmol/L (3.5-5.1)
[2020-05-05 14:31] LABS: ALBUMIN 3.4 g/dL (3.4-5.0); ALBUMIN/GLOBULIN RATIO 0.9 (1.0-1.7); TOTAL BILIRUBIN 0.8 mg/dL (0.2-1.0); TOTAL PROTEIN 7.2 g/dL (6.4-8.2)
--- NOTE | 2020-05-05 15:18 | RAD ---
CT abdomen and pelvis without contrast 05/05/2020. Reason for exam: Epigastric pain. Helical noncontrast images were performed through the abdomen and pelvis. Exposure: One or more of the following individualized dose reduction techniques were utilized for this examination: 1. Automated exposure control 2. Adjustment of the mA and/or kV according to patient size 3. Use of iterative reconstruction technique. Comparison is made with a previous exam of 05/27/2009. FINDINGS: There is mild dependent atelectasis. The lung bases otherwise are clear. The liver and spleen are homogeneous in density and normal in configuration. Evaluation of the solid organs is limited without IV contrast. The kidneys show no apparent obstruction. There is a high density area in the mid right kidney measuring about 1.4 cm. Internal attenuation averages about 55 Hounsfield units. This is denser than adjacent parenchyma. This probably is a small hemorrhagic cyst, although is not evident previously. No other renal parenchymal abnormality is seen. Both adrenal glands appear mildly thickened with relatively low attenuation. This could be from hyperplasia or small adenomas. This is only slightly more prominent than previously. The pancreas shows a small cystic area arising anteriorly in the pancreatic head. There was a similar smaller structure seen previously. On today's exam, this measures about 1.7 cm AP and 1.5 cm mediolaterally. It previously measured about 1.2 x 1.1 cm. No other pancreatic abnormality is seen. The main pancreatic duct is not dilated. No retroperitoneal or mesenteric adenopathy is seen. There is no apparent abdominal mass or inflammatory process. There is no evidence of bowel obstruction. Images through the pelvis show no abnormality of the distal ureters or bladder. No pelvic adenopathy is seen. There is some edema in the upper thighs bilaterally and inguinal regions, and there are some mildly prominent inguinal lymph nodes. These are presumably reactive in nature. The uterus contains multiple calcified fibroids. The uterus and adnexal structures otherwise appear normal for age. There is no separate pelvic mass. There is a hernia in the right inguinal region containing a portion of the cecum. There is no associated obstruction. A normal appendix is seen arising from the cecum. IMPRESSION: No definite acute findings. There is a right inguinal hernia containing a portion of the cecum, but there is no associated obstruction. A high density right renal lesion is nonspecific, but most likely benign hemorrhagic cyst. There is evidence of a cystic pancreatic lesion, although this appears to have changed little since the original CT of over 10 years ago. 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 Further evaluation with CT or MRI with and without contrast would be useful. There is some edema in the upper thighs with suggestion of mild inguinal adenopathy bilaterally. This presumably reactive in nature. Electronically signed by: Clifford Cortes Jr., MD (05/05/2020 3:15 PM) [id number]
[2020-05-05 15:28] LABS: HYPOCHROMIA MOD; PLT ESTIMATE ADEQUATE (ADEQUATE); POIKILOCYTOSIS SLIGHT; POLYCHROMASIA PRESENT
[2020-05-05 15:29] LABS: ANISOCYTOSIS SLIGHT; MICROCYTOSIS MOD; OVALOCYTES PRESENT
[2020-05-05 15:30] LABS: TARGET CELLS OCC; TEAR DROP CELLS OCC
[2020-05-05 15:31] LABS: ACANTHOCYTES OCC
--- NOTE | 2020-05-05 15:35 | PHYS DOC ---
Past History Past Medical History: Anxiety, Bipolar, Depression, Diabetes, High Cholesterol, Hypertension, Other Additional Past Medical Histor: parkinson's Past Surgical History: No Surgical History Smoking: Non-smoker Alcohol Use: None Drug Use: None General Adult EDM: Chief Complaint: ABDOMINAL PAIN HPI: HPI: 79-year-old female presents with right lower quadrant abdominal pain. The patient has a pancreatic cyst and she is worried about it. She also tells me that she has an enlarged uterus that she is supposed to follow-up with [facility] about. She has no appointment coming up soon. Patient's pain is a deep cramping sensation. She feels a fullness in that right lower quadrant. The pain is moderate in intensity. Patient also tells me that she feels like her right calf and leg are more swollen than the left. She has had a DVT in the past in this leg. She does not recall what caused the DVT. It was several yea rs ago. She denies shortness of breath, chest pain, fever, chills. Review of Systems: Review of Systems: Constitutional: Denies fever or chills Eyes: Denies change in visual acuity HENT: Denies nasal congestion or sore throat Respiratory: Denies cough or shortness of breath Cardiovascular: Denies chest pain or edema GI: Right lower quadrant abdominal pain.denies nausea, vomiting, bloody stools or diarrhea : Denies dysuria Musculoskeletal: Right lower leg swelling. Integument: Denies rash Neurologic: Denies headache, focal weakness or sensory changes Endocrine: Denies polyuria or polydipsia Lymphatic: Denies swollen glands Psychiatric: Denies depression or anxiety Heart Score: Risk Factors: Risk Factors: DM, Current or recent (<one month) smoker, HTN, HLP, family history of CAD, obesity. Risk Scores: Score 0 - 3: 2.5% MACE over next 6 weeks - Discharge Home Score 4 - 6: 20.3% MACE over next 6 weeks - Admit for Clinical Observation Score 7 - 10: 72.7% MACE over next 6 weeks - Early Invasive Strategies Allergies: Allergies: Allergies Coded Allergies Type Severity Reaction Last Updated Verified atorvastatin Allergy Intermediate "sore upper arms" 02/16/15 Yes iodine Allergy Intermediate 09/25/15 Yes pioglitazone Allergy Mild 01/02/16 Yes Physical Exam: PE: Constitutional: Well developed, well nourished, no acute distress, non-toxic appearance. [] HENT: Normocephalic, atraumatic, bilateral external ears normal, oropharynx moist, no oral exudates, nose normal. [] Eyes: PERRLA, EOMI, conjunctiva normal, no discharge. [] Neck: Normal range of motion, no tenderness, supple, no stridor. [] Cardiovascular:Heart rate regular rhythm, no murmur [] Lungs & Thorax: Bilateral breath sounds clear to auscultation [] Abdomen: Bowel sounds normal, soft, tenderness of the right lower quadrant above the waistline. Soft palpable mass in this area., no pulsatile masses. [] Skin: Warm, dry, no erythema, no rash. [] Back: No tenderness, no CVA tenderness. [] Extremities: No tenderness, no cyanosis, no clubbing, ROM intact, 2+ pitting edema left leg, 3+ pitting edema right to the knee. [] Neurologic: Alert and oriented X 3, normal motor function, normal sensory function, no focal deficits noted. [] Psychologic: Affect normal, judgement normal, mood normal. [] Current Patient Data: Labs: Laboratory Tests Test 05/05/20 14:00 White Blood Count 7.1 x10^3/uL (4.0-11.0) Red Blood Count 4.41 x10^6/uL (3.50-5.40) Hemoglobin 9.1 g/dL (12.0-15.5) L Hematocrit 28.8 % (36.0-47.0) L Mean Corpuscular Volume 65 fL (79-100) L Mean Corpuscular Hemoglobin 21 pg (25-35) L Mean Corpuscular Hemoglobin Concent 32 g/dL (31-37) Red Cell Distribution Width 18.9 % (11.5-14.5) H Platelet Count 264 x10^3/uL (140-400) Neutrophils (%) (Auto) 81 % (31-73) H Lymphocytes (%) (Auto) 14 % (24-48) L Monocytes (%) (Auto) 4 % (0-9) Eosinophils (%) (Auto) 0 % (0-3) Basophils (%) (Auto) 1 % (0-3) Neutrophils # (Auto) 5.8 x10^3uL (1.8-7.7) Lymphocytes # (Auto) 1.0 x10^3/uL (1.0-4.8) Monocytes # (Auto) 0.3 x10^3/uL (0.0-1.1) Eosinophils # (Auto) 0.0 x10^3/uL (0.0-0.7) Basophils # (Auto) 0.1 x10^3/uL (0.0-0.2) Platelet Estimate Adequate (ADEQUATE) Large Platelets Occ Polychromasia Present Hypochromasia Mod Poikilocytosis Slight Basophilic Stippling Present Anisocytosis Slight Microcytosis Mod Target Cells Occ Tear Drop Cells Occ Ovalocytes Present Acanthocytes (Spur Cells) Occ Sodium Level 140 mmol/L (136-145) Potassium Level 3.8 mmol/L (3.5-5.1) Chloride Level 103 mmol/L (98-107) Carbon Dioxide Level 31 mmol/L (21-32) Anion Gap 6 (6-14) Blood Urea Nitrogen 14 mg/dL (7-20) Creatinine 1.1 mg/dL (0.6-1.0) H Estimated GFR (Cockcroft-Gault) 58.3 BUN/Creatinine Ratio 13 (6-20) Glucose Level 197 mg/dL (70-99) H Calcium Level 9.4 mg/dL (8.5-10.1) Total Bilirubin 0.8 mg/dL (0.2-1.0) Aspartate Amino Transferase (AST) 16 U/L (15-37) Alanine Aminotransferase (ALT) 19 U/L (14-59) Alkaline Phosphatase 69 U/L (46-116) Total Protein 7.2 g/dL (6.4-8.2) Albumin 3.4 g/dL (3.4-5.0) Albumin/Globulin Ratio 0.9 (1.0-1.7) L Lipase 61 U/L (73-393) L EKG: EKG: [] Radiology/Procedures: Radiology/Procedures: [] Impressions: CT abdomen and pelvis without contrast 05/05/2020. Reason for exam: Epigastric pain. Helical noncontrast images were performed through the abdomen and pelvis. Exposure: One or more of the following individualized dose reduction techniques were utilized for this examination: 1. Automated exposure control 2. Adjustment of the mA and/or kV according to patient size 3. Use of iterative reconstruction technique. Comparison is made with a previous exam of 05/27/2009. FINDINGS: There is mild dependent atelectasis. The lung bases otherwise are clear. The liver and spleen are homogeneous in density and normal in configuration. Evaluation of the solid organs is limited without IV contrast. The kidneys show no apparent obstruction. There is a high density area in the mid right kidney measuring about 1.4 cm. Internal attenuation averages about 55 Hounsfield units. This is denser than adjacent parenchyma. This probably is a small hemorrhagic cyst, although is not evident previously. No other renal parenchymal abnormality is seen. Both adrenal glands appear mildly thickened with relatively low attenuation. This could be from hyperplasia or small adenomas. This is only slightly more prominent than previously. The pancreas shows a small cystic area arising anteriorly in the pancreatic head. There was a similar smaller structure seen previously. On today's exam, this measures about 1.7 cm AP and 1.5 cm mediolaterally. It previously measured about 1.2 x 1.1 cm. No other pancreatic abnormality is seen. The main pancreatic duct is not dilated. No retroperitoneal or mesenteric adenopathy is seen. There is no apparent abdominal mass or inflammatory process. There is no evidence of bowel obstruction. Images through the pelvis show no abnormality of the distal ureters or bladder. No pelvic adenopathy is seen. There is some edema in the upper thighs bilaterally and inguinal regions, and there are some mildly prominent inguinal lymph nodes. These are presumably reactive in nature. The uterus contains multiple calcified fibroids. The uterus and adnexal structures otherwise appear normal for age. There is no separate pelvic mass. There is a hernia in the right inguinal region containing a portion of the cecum. There is no associated obstruction. A normal appendix is seen arising from the cecum. IMPRESSION: No definite acute findings. There is a right inguinal hernia containing a portion of the cecum, but there is no associated obstruction. A high density right renal lesion is nonspecific, but most likely benign hemorrhagic cyst. There is evidence of a cystic pancreatic lesion, although this appears to have changed little since the original CT of over 10 years ago. 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 Further evaluation with CT or MRI with and without contrast would be useful. There is some edema in the upper thighs with suggestion of mild inguinal adenopathy bilaterally. This presumably reactive in nature. Electronically signed by: Wen Cortes Jr., MD (05/05/2020 3:15 PM) [id number] DICTATED AND SIGNED BY: WEN CORTES Jr, MD DATE: 05/05/20 1515 CC: LESLI SAINZ DO; PERLA LORENZO MD ~ EXAM: Right lower extremity venous Doppler sonogram. HISTORY: Pain and swelling. DVT. TECHNIQUE: Knight scale and color Doppler sonographic evaluation of the right lower extremity veins with spectral waveform analysis was performed. FINDINGS: There is normal color flow, normal compressibility and there are normal spectral waveforms in the common femoral, superficial femoral, popliteal, posterior tibial and greater saphenous veins. IMPRESSION: No Doppler evidence of lower extremity deep venous thrombosis. Electronically signed by: Sierra Funez MD (05/05/2020 5:33 PM) [facility] DICTATED AND SIGNED BY: SIERRA FUNEZ MD DATE: 05/05/20 1733 CC: LESLI SAINZ DO; PERLA LORENZO MD ~ Course & Med Decision Making: Course & Med Decision Making Pertinent Labs and Imaging studies reviewed. (See chart for details) The patient's labs are significant for anemia. Her hemoglobin is similar to previous. Her CT scan shows ventral hernia which contains the cecum without obstruction. I have advised she follow-up on this with her primary physician and consider if that hernia needs to be repaired. She does have a urinary tract infection and I will treat her with Macrobid for 5 days. She is stable for discharge at this time. [] Dragon Disclaimer: Dragon Disclaimer: This electronic medical record was generated, in whole or in part, using a voice recognition dictation system. Departure Departure: Impression: Primary Impression: Abdominal hernia without obstruction or gangrene Qualified Codes: K43.9 - Ventral hernia without obstruction or gangrene Additional Impression: UTI (urinary tract infection) Qualified Codes: N30.01 - Acute cystitis with hematuria Disposition: HOME/RESIDENCE PRIOR TO ADM Condition: STABLE Referrals: PERLA LORENZO MD (PCP) Patient Instructions: Hernia, Urinary Tract Infection, [id number] Scripts Nitrofurantoin Monohyd/M-Cryst (MACROBID 100 MG CAPSULE) 100 Mg Capsule 1 CAP PO BID for uti for 5 Days, #10 CAP 0 Refills Prov: LESLI SAINZ DO 05/05/20 Justification of Admission: Justification of Admission: Justification of Admission Dx: N/A LESLI SAINZ DO May 05, 2020 15:35
[2020-05-05 16:12] LABS: BILIRUBIN,URINE NEG (NEG); CLARITY,URINE CLOUDY; COLOR,URINE YELLOW; GLUCOSE,URINE 100 mg/dL (NEG); NITRITE,URINE NEG (NEG); UROBILINOGEN,URINE 0.2 mg/dL (0.2 mg/dL)
[2020-05-05 16:14] LABS: BACTERIA,URINE MANY /HPF (0-FEW); HYALINE CASTS, URINE OCC /HPF; SQUAMOUS EPITHELIAL CELL,UR FEW /LPF; WBC,URINE >40 /HPF (0-4)
--- NOTE | 2020-05-05 17:36 | RAD ---
EXAM: Right lower extremity venous Doppler sonogram. HISTORY: Pain and swelling. DVT. TECHNIQUE: Knight scale and color Doppler sonographic evaluation of the right lower extremity veins with spectral waveform analysis was performed. FINDINGS: There is normal color flow, normal compressibility and there are normal spectral waveforms in the common femoral, superficial femoral, popliteal, posterior tibial and greater saphenous veins. IMPRESSION: No Doppler evidence of lower extremity deep venous thrombosis. Electronically signed by: Sierra Aleman MD (05/05/2020 5:33 PM) [facility]
[2020-05-05] MEDS ORDERED: NITR100C62 PO (17:48)
== END 2020-05-05 17:55 | disposition home or self-care (01) ==
LOC: ER 13:00
DX: K43.9 Ventral hernia without obstruction or gangrene (principal); N30.01 Acute cystitis with hematuria; R22.31 Localized swelling, mass and lump, right upper limb; E11.9 Type 2 diabetes mellitus without complications; E78.00 Pure hypercholesterolemia, unspecified; I10 Essential (primary) hypertension; Z88.8 Allergy status to other drugs, medicaments and biological substances
CPT/HCPCS: 36415; 74176; 80053; 81001; 83690; 85025; 87086; 93971; 99285-25

== ENCOUNTER → 2020-05-31 | Outpatient (CLI) | payer MEDICARE, BC ==
[2020-05-05 13:59] VITALS: BP 156/66
[~2020-05-31] MED LIST changes: +NITR100C62 PO
[2020-05-31 14:44] LABS: ALBUMIN 3.4 g/dL (3.4-5.0); ALBUMIN/GLOBULIN RATIO 0.9 (1.0-1.7); CALCIUM 9.8 mg/dL (8.5-10.1); CREATININE 1.2 mg/dL (0.6-1.0); GFR 52.7; TOTAL BILIRUBIN 0.6 mg/dL (0.2-1.0)
== END | disposition home or self-care (01) ==
LOC: LAB 13:03
PROVIDERS: ATTEND Nurse Practitioner
DX: I50.32 Chronic diastolic (congestive) heart failure (principal); E78.5 Hyperlipidemia, unspecified
CPT/HCPCS: 36415; 80053; 80061; 83880

== ENCOUNTER 2020-09-26 08:45 | Inpatient (IN) | payer MEDICARE, BC ==
[~2020-09-26] VITALS: Ht 165.1 cm; Wt 80.8 kg
[~2020-09-26 08:45] MED LIST changes: +AMLO-187 PO; -AMLO10TA8 PO; -CLIN150C14 PO; +CLIN150C15 PO; -VANC1.2514 IV; +VANC1.2523 IV
--- NOTE | 2020-09-26 09:04 | PHYS DOC ---
Past History Past Medical History: Anxiety, Bipolar, Depression, Diabetes, High Cholesterol, Hypertension, Other Additional Past Medical Histor: parkinson's Past Surgical History: Other Additional Past Surgical Histo: one stent Smoking: Non-smoker Alcohol Use: None Drug Use: None General Adult EDM: Chief Complaint: WEAKNESS/GENERALIZED HPI: HPI: This is a pleasant 80-year-old female presenting the emergency department by EMS. Her called EMS after the patient has been having worsening weakness generalized over the past 2 days. The patient's last known well was at 9 PM last night. She has a history of Parkinson's disease and has been taking her medications. She denies any pain. She has had 2 falls over the past 4 days but denies any pain in her hip, head injury loss of consciousness or any pain or injuries from the events. Currently she is not any pain breathing comfortably with a normal neurologic exam other than a tremor. Review of systems is negative for chest pain shortness of breath hip pain pelvic pain abdominal pain back pain neck pain. She denies any injuries to the extremities. She denies head injury or loss of consciousness. Negative for slurred speech facial drooping double vision. Negative for unilateral arm or leg weakness. She denies any focal neurologic deficits. All other review of systems negative. ED course: 80-year-old female presenting with generalized fatigue and weakness over the past 2 to 3 days. She has had some recent falls. White count 11.8 up from previous. Mild and nonspecific. Hemoglobin is up from previous now at 11.9. Chemistry panel shows creatinine of 1.1. Otherwise the remainder of the tests are unremarkable. Patient likely has a UTI. We will give the patient an IV antibiotic. I spoke to Dr. Trevino who accepts patient for admission. We will order serial troponins given the result. Allergies: Allergies: Allergies Coded Allergies Type Severity Reaction Last Updated Verified atorvastatin Allergy Intermediate "sore upper arms" 09/26/20 Yes iodine Allergy Intermediate 09/26/20 Yes pioglitazone Allergy Mild 09/26/20 Yes Physical Exam: PE: Constitutional: Well developed, well nourished, no acute distress, non-toxic appearance. HENT: Normocephalic, atraumatic, bilateral external ears normal, oropharynx moist, no oral exudates, nose normal. [] Eyes: PERRLA, EOMI, conjunctiva normal, no discharge. [] Neck: Normal range of motion, no tenderness, supple, no stridor. [] Cardiovascular:Heart rate regular rhythm, no murmur [] Lungs & Thorax: Bilateral breath sounds clear to auscultation [] Abdomen: Bowel sounds normal, soft, no tenderness, no masses, no pulsatile masses. [] Skin: Warm, dry, no erythema, no rash. [] Back: No tenderness, no CVA tenderness. [] Extremities: No tenderness, no cyanosis, no clubbing, ROM intact, no edema. [] Neurologic: Mental status: Awake oriented and alert x3 (inititially got the year wrong but self corrected after a few questions.) Cranial nerves: Extraocular movements intact, eyebrows henry bilaterally, smile symmetric, uvula elevation nl, shoulder shrug intact bilaterally, tongue protrusion normal Sensation: equal and normal in all extremities Strength: 5/5 in upper and lower extremities bilaterally. Equal tremor in both upper extremities. NO DRIFT or facial drooping. Not dizzy. no nystagmus. Psychologic: Affect normal, judgement normal, mood normal. [] EKG: EKG: [] Radiology/Procedures: Radiology/Procedures: [] Heart Score: Risk Factors: Risk Factors: DM, Current or recent (<one month) smoker, HTN, HLP, family history of CAD, obesity. Risk Scores: Score 0 - 3: 2.5% MACE over next 6 weeks - Discharge Home Score 4 - 6: 20.3% MACE over next 6 weeks - Admit for Clinical Observation Score 7 - 10: 72.7% MACE over next 6 weeks - Early Invasive Strategies Course & Med Decision Making: Course & Med Decision Making Pertinent Labs and Imaging studies reviewed. (See chart for details) [] Dragon Disclaimer: Dragon Disclaimer: This electronic medical record was generated, in whole or in part, using a voice recognition dictation system. Departure Departure: Impression: Primary Impression: Generalized muscle weakness Additional Impression: UTI (urinary tract infection) Disposition: ADMITTED INPT THIS HOSP Admitting Physician: Antonio Rogers Condition: STABLE Referrals: ANTONIO ROGERS MD (PCP) IVY TAPIA MD Sep 26, 2020 09:04
--- NOTE | 2020-09-26 09:11 | EKG ---
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
[2020-09-26] MEDS ORDERED: IV NORMAL SALINE 500ML 500 ML IV ONE (09:15)
[2020-09-26 09:24] LABS: BASO # 0.1 x10^3/uL (0.0-0.2); BASO % 1 % (0-3); EOS # 0.1 x10^3/uL (0.0-0.7); EOS % 1 % (0-3); HEMATOCRIT 38.4 % (36.0-47.0); HEMOGLOBIN 11.9 g/dL (12.0-15.5); LYMPH # 1.1 x10^3/uL (1.0-4.8); LYMPH % 10 % (24-48); MEAN CORPUSCULAR HEMOGLOBIN 20 pg (25-35); MEAN CORPUSCULAR HGB CONC 31 g/dL (31-37); MEAN CORPUSCULAR VOLUME 63 fL (79-100); MONO # 0.4 x10^3/uL (0.0-1.1); MONO % 4 % (0-9); NEUT # 10.1 x10^3uL (1.8-7.7); NEUT % 86 % (31-73); PLATELET COUNT 284 x10^3/uL (140-400); RED BLOOD COUNT 6.06 x10^6/uL (3.50-5.40); RED CELL DISTRIBUTION WIDTH 15.8 % (11.5-14.5); WHITE BLOOD COUNT 11.8 x10^3/uL (4.0-11.0)
[2020-09-26 09:33] LABS: CALCIUM 9.8 mg/dL (8.5-10.1); CREATININE 1.1 mg/dL (0.6-1.0); GFR 58.1; POTASSIUM 4.4 mmol/L (3.5-5.1)
[2020-09-26 09:39] LABS: ALBUMIN 3.5 g/dL (3.4-5.0); TOTAL BILIRUBIN 0.6 mg/dL (0.2-1.0); TOTAL PROTEIN 7.1 g/dL (6.4-8.2)
--- NOTE | 2020-09-26 09:53 | RAD ---
CT HEAD/BRAIN WO Date: 09/26/2020 8:59 AM Clinical Indication: Reason: generalized weakness / Spl. Instructions: / History: Comparison: 06/06/2019. Technique: 5 mm axial tomographic images were obtained of the head without contrast. These were view ed on brain and bone windows. One or more of the following dose reduction techniques were utilized: A utomated exposure control (AEC), Adjustment of mA and/or kV according to patient size, Use of iterati ve reconstruction technique such as ASiR, CT scan done according to ALARA and image gently/image elaine ly Findings: Mild generalized cerebral and cerebellar volume loss. Mild nonspecific periventricular hypoattenuatio n, most commonly seen with chronic small vessel ischemic disease. Calcified atherosclerosis of the bi lateral cavernous and paraclinoid internal carotid arteries and intracranial vertebral arteries. No intra- or extra-axial mass or fluid collection. No acute hemorrhage. The ventricles are normal in size, shape, and morphology. The jaimes-white matter junction is normal. The subarachnoid cisterns are patent. The visualized paranasal sinuses are normal. The visualized portions of the orbits and globes are no rmal. The mastoid air cells are clear. The target developer topogram shows no lytic lesion or fracture. Impression: No acute intracranial process. Mild cerebral volume loss. Mild chronic small vessel ischemic disease. Electronically signed by: Cooper Diaz MD (09/26/2020 9:50 AM) [id number]
[2020-09-26 10:20] LABS: PLT ESTIMATE ADEQUATE (ADEQUATE)
[2020-09-26 10:21] LABS: ANISOCYTOSIS MOD; MICROCYTOSIS MOD; OVALOCYTES FEW; POIKILOCYTOSIS MOD; POLYCHROMASIA SLIGHT; TARGET CELLS OCC; TEAR DROP CELLS OCC
[2020-09-26] MEDS ORDERED: IV NORMAL SALINE 50ML 50 ML ONE (10:55)
[2020-09-26] MEDS ORDERED: cefTRIAXone SODIUM 1 GM VIAL ONE (10:55)
[2020-09-26 11:19] LABS: BILIRUBIN,URINE NEG (NEG); CLARITY,URINE TURBID; COLOR,URINE YELLOW; GLUCOSE,URINE NEG (NEG); NITRITE,URINE NEG (NEG); UROBILINOGEN,URINE 0.2 mg/dL (0.2 mg/dL)
[2020-09-26 11:20] LABS: BACTERIA,URINE MANY /HPF (0-FEW); SQUAMOUS EPITHELIAL CELL,UR FEW /LPF; WBC,URINE >40 /HPF (0-4)
--- NOTE | 2020-09-26 11:38 | RAD ---
Single AP view of the chest. Comparison: 11/16/2019. Indication: Fall Findings: The heart is enlarged but stable. There is no pneumothorax or effusion. No air space or interstitial disease. Impression: 1. No acute cardiopulmonary process. Electronically signed by: Bay Miranda MD (09/26/2020 11:35 AM) [id number]
[2020-09-26 11:51] VITALS: BP 180/70
--- NOTE | 2020-09-26 12:25 | NUR ---
ADMISSION NOTE-PT ARRIVES VIA EMS FROM ED AT 1140. SHE IS TRANSFERRED FROM COT TO BED VIA SHEET. IVF STILL INFUSING FROM ED HUNG AT BEDSIDE. SHE IS NOT ON OXYGEN AT THIS TIME. VS ASSESSED. HT/WT OBTAINED. INVENTORY COMPLETE. PT WEARS GLASSES, BUT THEY ARE NOT WITH HER AT THIS TIME. SHE DOES NOT HAVE ANY ELECTRONIC DEVICES WITH HER ON ADMISSION. TELEMETRY APPLIED.
--- NOTE | 2020-09-26 12:50 | RAD ---
PROCEDURE: XR HIP (WITH OR WITHOUT PELVIS) 1 VIEW STUDY DATE: 09/26/2020 CLINICAL INDICATION / HISTORY: Reason: fall / Spl. Instructions: / History: . TECHNIQUE: 2 views of the right and left hip were obtained along with an AP view pelvis. COMPARISON: None FINDINGS: The osseous structures are normally mineralized. There is normal bony alignment present wit h the femoral heads well-seated within the acetabuli. There is no evidence of acute fracture or dislo cation identified. Soft tissues show calcifications in the pelvis that could reflect calcified fibro ids. Some enthesophytes are also evident over the bilateral iliac wings. IMPRESSION: Unremarkable examination of the hips and pelvis. No fracture or dislocation.. Electronically signed by: Sarmad Hebert MD (09/26/2020 12:48 PM) [id number]
[2020-09-26 16:02] VITALS: BP 170/74
[2020-09-26] MEDS ORDERED: HYDROcodone/APAP 5/325MG 1 TAB TABLET PO PRN (17:15)
[2020-09-26] MEDS ORDERED: MINERAL OIL/PETROLATUM TOPICAL CREAM 113GM JAR. TP PRN (17:15)
[2020-09-26] MEDS ORDERED: DOCUSATE SODIUM 100 MG CAPSULE PO PRN (17:15)
[2020-09-26] MEDS ORDERED: ACETAMINOPHEN 325 MG TABLET PO PRN (17:15)
[2020-09-26] MEDS ORDERED: PIP/TAZO PER PHARMACY MC PRN (17:30)
[2020-09-26] MEDS ORDERED: levoFLOXacin PER PHARMACY 1 EACH. MC PRN (17:30)
--- NOTE | 2020-09-26 17:50 | HP ---
ADMIT DATE: 09/26/2020 HISTORY OF PRESENT ILLNESS: A 80-year-old female who came in with generalized weakness. The brought her in via EMS, as she had increased weakness and unable to move out of bed. She has had 2 falls in the past 4 days. Denies any head pain, head injuries, or loss of consciousness, but the patient is extremely weak and looks like she has pyelonephritis or possible sepsis. PAST MEDICAL HISTORY: The patient has multiple medical problems in the past. She has a long history of encephalopathy, Alzheimer's disease, Parkinson's disease, congestive heart failure, coronary stent placement, DVT, abdominal surgery, nausea, vomiting, fibroids, renal disease, urinary tract infection, osteoarthritis, right knee arthroscopy, diabetes, hypothyroidism, thalassemia, bipolar disorder, depression, anxiety, anemia, and venous insufficiency. IMMUNIZATIONS: Up-to-date. ALLERGIES: LIPITOR, IODINE, and PIOGLITAZONE. SOCIAL HISTORY: No smoking, alcohol, or drug use. She is a full code. FAMILY HISTORY: Positive for hypertension, heart disease, and diabetes. REVIEW OF SYSTEMS: The patient denies chest pain. Does have diffuse pain in her back and neck and so forth. Has a long history of arthritis, difficulty moving, and has a history of Parkinson's for which she has a great deal of problems as well. She has been falling and she has generalized weakness. PHYSICAL EXAMINATION: GENERAL: This is an ill-appearing -[place] female. VITAL SIGNS: Blood pressure 203/90, respiratory rate 28 (NC), pulse 80, afebrile, although it does run up to 99 degrees. HEENT: The patient's head was atraumatic, normocephalic. Eyes: PERRLA without jaundice. The mouth and throat were normal. NECK: Supple, without JVD, carotid bruits, nor thyromegaly. LUNGS: Diminished. CARDIOVASCULAR: Regular sinus rhythm, S1, S2. ABDOMEN: Soft, nontender, no rebounding or guarding. Positive bowel sounds. No hepatosplenomegaly was noted. EXTREMITIES: No clubbing, cyanosis, nor edema. NEUROLOGIC: The patient was alert and baseline oriented for her. The patient does have some noted dementia, self-correcting. Does have speech that is appropriate for her. Otherwise, will continue to be monitored carefully, make further evaluation on her as indicated. IMPRESSION: Sepsis, pyelonephritis hypertensive urgency. PLAN: As above. Continue to monitor her accordingly and make further evaluation with urine cultures, blood cultures. PERLA LORENZO MD DR: WALESKA/kenneth JOB#: [id number] / [id number]
[2020-09-26] MEDS ORDERED: MAG HYDROX/AL HYDROX/SIMETH 30 ML ORAL.SUSP PO PRN (18:00)
[2020-09-26] MEDS ORDERED: MAGNESIUM HYDROXIDE 2,400 MG/30 ML ORAL.SUSP. PO PRN (18:00)
[2020-09-26 19:52] VITALS: BP 168/72
[2020-09-26] MEDS: CARVEDILOL 12.5 MG TABLET PO SCH (19:54)
[2020-09-26] MEDS: PIPERACILLIN/TAZOBACTAM 3.375 GM in IV NORMAL SALINE 50ML 50 ML IV SCH (19:54)
[2020-09-26] MEDS: ENOXAPARIN 40 MG/0.4 ML SYRINGE. SQ SCH (19:55)
[2020-09-26] MEDS: NON FORMULARY ITEM (Pravastatin Sodium 1 TAB) PO SCH (20:25)
[2020-09-26] MEDS: lamoTRIgine 100 MG TABLET. PO SCH (20:28)
[2020-09-26] MEDS: LACTOBACILLUS RHAMNOSUS GG 1 CAPSULE. PO SCH (20:29)
[2020-09-26] MEDS: DONEPEZIL HCL 5 MG TABLET. PO SCH (20:29)
[2020-09-26] MEDS: CARBIDOPA/LEVODOPA 25/100MG TABLET PO SCH (20:30)
[2020-09-26] MEDS: INSULIN LISPRO 300 UNITS/3 ML VIAL. SQ SCH (20:30)
[2020-09-26] MEDS ORDERED: NITROFURANTOIN MONOHYD/M-CRYST 100 MG CAPSULE. PO SCH (21:00)
[2020-09-26] MEDS: INSULIN GLARGINE SYRINGE. SQ SCH (21:00)
--- NOTE | 2020-09-26 23:31 | NUR ---
Pt sleeping in bed when approached for assessment. Pt A&Ox4. Pt has no complaints of pain at this time. VS obtained. Pt was given HS medications whole w/o difficulty. Pts had complaints of feeling "sweaty". BG was taken. Pt had glucose of 124. Temp was then taken. Pt had temp of 98.4. Lowered thermostat in pts room. Call light in reach and bed alarm in place.
[2020-09-27] MEDS: PIPERACILLIN/TAZOBACTAM 3.375 GM in IV NORMAL SALINE 50ML 50 ML IV SCH ×4 (00:42→17:37)
[2020-09-27 05:48] VITALS: BP 147/68
[2020-09-27 07:11] LABS: BASO % 1 % (0-3); EOS # 0.1 x10^3/uL (0.0-0.7); EOS % 2 % (0-3); HEMATOCRIT 35.6 % (36.0-47.0); HEMOGLOBIN 11.2 g/dL (12.0-15.5); LYMPH # 1.4 x10^3/uL (1.0-4.8); LYMPH % 18 % (24-48); MEAN CORPUSCULAR HEMOGLOBIN 20 pg (25-35); MEAN CORPUSCULAR HGB CONC 32 g/dL (31-37); MEAN CORPUSCULAR VOLUME 63 fL (79-100); MONO # 0.4 x10^3/uL (0.0-1.1); MONO % 6 % (0-9); NEUT # 5.5 x10^3uL (1.8-7.7); NEUT % 74 % (31-73); PLATELET COUNT 265 x10^3/uL (140-400); RED BLOOD COUNT 5.69 x10^6/uL (3.50-5.40); RED CELL DISTRIBUTION WIDTH 15.7 % (11.5-14.5); WHITE BLOOD COUNT 7.4 x10^3/uL (4.0-11.0)
[2020-09-27 07:16] LABS: CALCIUM 9.3 mg/dL (8.5-10.1); GFR 64.9; POTASSIUM 3.8 mmol/L (3.5-5.1)
[2020-09-27] MEDS: LACTOBACILLUS RHAMNOSUS GG 1 CAPSULE. PO SCH ×2 (07:45→21:32)
[2020-09-27] MEDS: lamoTRIgine 100 MG TABLET. PO SCH ×2 (07:46→21:32)
[2020-09-27] MEDS: CARVEDILOL 12.5 MG TABLET PO SCH ×2 (07:47→17:38)
[2020-09-27] MEDS: ARIPiprazole 5 MG TABLET PO SCH (07:47)
[2020-09-27] MEDS: metFORMIN 500 MG TABLET PO SCH ×2 (07:47→17:38)
[2020-09-27] MEDS: LISINOPRIL 20 MG TABLET PO SCH (07:47)
[2020-09-27] MEDS: ASPIRIN ENTERIC COATED 81 MG TABLET.DR. PO SCH (07:48)
[2020-09-27] MEDS: CARBIDOPA/LEVODOPA 25/100MG TABLET PO SCH ×4 (07:48→21:32)
[2020-09-27] MEDS: FUROSEMIDE 20 MG TABLET PO SCH (07:48)
[2020-09-27] MEDS: INSULIN LISPRO 300 UNITS/3 ML VIAL. SQ SCH ×4 (07:54→21:00)
[2020-09-27] MEDS: LIDOCAINE (700MG/PATCH) PATCH. TD SCH (08:23)
[2020-09-27] MEDS ORDERED: NON FORMULARY ITEM (Nifedipine (Nifedipine Er) 60 MG) PO SCH (09:00)
[2020-09-27 10:23] VITALS: BP 156/88
[2020-09-27] MEDS: CYANOCOBALAMIN (VITAMIN B-12) 1,000 MCG TABLET. PO SCH (11:53)
[2020-09-27] MEDS: MULTIVITAMIN with MINERAL TABLET. PO SCH (11:53)
[2020-09-27] MEDS: CHOLECALCIFEROL (VITAMIN D3) 1,000 UNIT TABLET PO SCH (11:53)
[2020-09-27 14:08] VITALS: BP 125/70
[2020-09-27] MEDS: ENOXAPARIN 40 MG/0.4 ML SYRINGE. SQ SCH (17:38)
[2020-09-27 19:34] VITALS: BP 146/66
[2020-09-27] MEDS: NON FORMULARY ITEM (Pravastatin Sodium 1 TAB) PO SCH (21:00)
[2020-09-27] MEDS: DONEPEZIL HCL 5 MG TABLET. PO SCH (21:32)
[2020-09-27] MEDS: INSULIN GLARGINE SYRINGE. SQ SCH (21:33)
[2020-09-28 05:39] VITALS: BP 157/81
[2020-09-28] MEDS: PIPERACILLIN/TAZOBACTAM 3.375 GM in IV NORMAL SALINE 50ML 50 ML IV SCH ×5 (06:00→23:45)
[2020-09-28] MEDS: LISINOPRIL 20 MG TABLET PO SCH (08:26)
[2020-09-28] MEDS: ASPIRIN ENTERIC COATED 81 MG TABLET.DR. PO SCH (08:26)
[2020-09-28] MEDS: metFORMIN 500 MG TABLET PO SCH ×2 (08:26→17:18)
[2020-09-28] MEDS: ARIPiprazole 5 MG TABLET PO SCH (08:26)
[2020-09-28] MEDS: CARBIDOPA/LEVODOPA 25/100MG TABLET PO SCH ×4 (08:27→20:35)
[2020-09-28] MEDS: LACTOBACILLUS RHAMNOSUS GG 1 CAPSULE. PO SCH ×2 (08:27→20:35)
[2020-09-28] MEDS: CARVEDILOL 12.5 MG TABLET PO SCH ×2 (08:27→17:18)
[2020-09-28] MEDS: FUROSEMIDE 20 MG TABLET PO SCH (08:27)
[2020-09-28] MEDS: lamoTRIgine 100 MG TABLET. PO SCH ×2 (08:28→20:35)
[2020-09-28] MEDS: INSULIN LISPRO 300 UNITS/3 ML VIAL. SQ SCH ×4 (08:34→20:21)
[2020-09-28] MEDS: LIDOCAINE (700MG/PATCH) PATCH. TD SCH (08:44)
[2020-09-28 11:47] VITALS: BP 144/75
[2020-09-28] MEDS: CHOLECALCIFEROL (VITAMIN D3) 1,000 UNIT TABLET PO SCH (12:11)
[2020-09-28] MEDS: MULTIVITAMIN with MINERAL TABLET. PO SCH (12:11)
[2020-09-28] MEDS: CYANOCOBALAMIN (VITAMIN B-12) 1,000 MCG TABLET. PO SCH (12:11)
[2020-09-28 16:00] VITALS: BP 162/69
[2020-09-28] MEDS: ENOXAPARIN 40 MG/0.4 ML SYRINGE. SQ SCH (17:18)
[2020-09-28] MEDS: NON FORMULARY ITEM (Pravastatin Sodium 1 TAB) PO SCH (20:17)
[2020-09-28] MEDS: INSULIN GLARGINE SYRINGE. SQ SCH (20:22)
[2020-09-28] MEDS: DONEPEZIL HCL 5 MG TABLET. PO SCH (20:35)
--- NOTE | 2020-09-28 20:58 | PN ---
DATE: 09/28/2020 SUBJECTIVE: The patient came in with general weakness, probably sepsis from urinary tract infection. The patient says she is feeling a little bit better. Blood sugars are being brought under better control overall. The patient's urine culture grew out greater than 100,000 of E. coli and she is on antibiotics to cover that situation and she is making progress there. OBJECTIVE: VITAL SIGNS: Blood pressure 160/70 (NC), respiratory rate 20, pulse 78, afebrile. GENERAL: The patient is alert and oriented. LUNGS: Diminished, but clear. CARDIOVASCULAR: Stable. The patient has generally weakness overall, but receiving physical and occupational therapy overall. LABORATORY DATA: The patient's sodium and potassium and 138 and 4. BUN and creatinine 16 and 1.1. Otherwise, unremarkable. Hemoglobin 11.2 and hematocrit 35, history of thalassemia. IMPRESSION: Sepsis, urinary tract infection, Escherichia coli. PLAN: The patient continues to be monitored carefully. We will make further evaluation on her as indicated. Continue on IV antibiotic therapy as indicated. PERLA LORENZO MD DR: WALESKA/kenneth JOB#: [id number] / [id number]
[2020-09-28 21:01] VITALS: BP 157/63
[2020-09-28 23:57] VITALS: BP 163/64
[2020-09-29] MEDS: PIPERACILLIN/TAZOBACTAM 3.375 GM in IV NORMAL SALINE 50ML 50 ML IV SCH (05:25)
[2020-09-29 05:36] VITALS: BP 167/84
[2020-09-29 07:14] LABS: BASO # 0.1 x10^3/uL (0.0-0.2); BASO % 1 % (0-3); EOS # 0.2 x10^3/uL (0.0-0.7); EOS % 2 % (0-3); HEMATOCRIT 31.8 % (36.0-47.0); HEMOGLOBIN 10.1 g/dL (12.0-15.5); LYMPH # 1.4 x10^3/uL (1.0-4.8); LYMPH % 15 % (24-48); MEAN CORPUSCULAR HEMOGLOBIN 20 pg (25-35); MEAN CORPUSCULAR HGB CONC 32 g/dL (31-37); MEAN CORPUSCULAR VOLUME 63 fL (79-100); MONO # 0.3 x10^3/uL (0.0-1.1); MONO % 4 % (0-9); NEUT # 7.4 x10^3uL (1.8-7.7); NEUT % 78 % (31-73); PLATELET COUNT 240 x10^3/uL (140-400); RED BLOOD COUNT 5.09 x10^6/uL (3.50-5.40); RED CELL DISTRIBUTION WIDTH 15.7 % (11.5-14.5); WHITE BLOOD COUNT 9.5 x10^3/uL (4.0-11.0)
[2020-09-29 07:15] LABS: CALCIUM 8.7 mg/dL (8.5-10.1); CREATININE 0.9 mg/dL (0.6-1.0); GFR 73.3; POTASSIUM 3.6 mmol/L (3.5-5.1)
[2020-09-29] MEDS: FUROSEMIDE 20 MG TABLET PO SCH (07:59)
[2020-09-29] MEDS: ASPIRIN ENTERIC COATED 81 MG TABLET.DR. PO SCH (07:59)
[2020-09-29] MEDS: LISINOPRIL 20 MG TABLET PO SCH (08:00)
[2020-09-29] MEDS: LACTOBACILLUS RHAMNOSUS GG 1 CAPSULE. PO SCH ×2 (08:00→20:28)
[2020-09-29] MEDS: metFORMIN 500 MG TABLET PO SCH ×2 (08:00→17:18)
[2020-09-29] MEDS: CARBIDOPA/LEVODOPA 25/100MG TABLET PO SCH ×4 (08:00→20:28)
[2020-09-29] MEDS: ARIPiprazole 5 MG TABLET PO SCH (08:00)
[2020-09-29] MEDS: lamoTRIgine 100 MG TABLET. PO SCH ×2 (08:00→20:28)
[2020-09-29] MEDS: CARVEDILOL 12.5 MG TABLET PO SCH ×2 (08:01→17:18)
[2020-09-29] MEDS: INSULIN LISPRO 300 UNITS/3 ML VIAL. SQ SCH ×4 (08:02→21:00)
[2020-09-29] MEDS: LIDOCAINE (700MG/PATCH) PATCH. TD SCH (08:11)
[2020-09-29 08:55] LABS: ANISOCYTOSIS MOD; HYPOCHROMIA MOD; MICROCYTOSIS MOD; OVALOCYTES FEW
[2020-09-29 08:56] LABS: PLT ESTIMATE ADEQUATE (ADEQUATE); TARGET CELLS OCC; TEAR DROP CELLS OCC
[2020-09-29 10:58] VITALS: BP 156/74
[2020-09-29] MEDS: MULTIVITAMIN with MINERAL TABLET. PO SCH (11:55)
[2020-09-29] MEDS: CHOLECALCIFEROL (VITAMIN D3) 1,000 UNIT TABLET PO SCH (11:55)
[2020-09-29] MEDS: CYANOCOBALAMIN (VITAMIN B-12) 1,000 MCG TABLET. PO SCH (11:55)
[2020-09-29 14:52] VITALS: BP 163/72
--- NOTE | 2020-09-29 16:09 | PN ---
DATE: SUBJECTIVE: A 80-year-old female patient came in with generalized weakness, possible pyelonephritis. She is doing some better, but still has severe Parkinson's disease and unable to move very well, receiving PT and OT, still receiving IV antibiotic therapy. OBJECTIVE: VITAL SIGNS: Blood pressure 150/70, respiratory rate 20, pulse 80, afebrile. GENERAL: The patient was alert, baseline oriented, ____ ragged speech and marked tremor consistent with her Parkinson's. LUNGS: Otherwise, lungs are diminished. CARDIOVASCULAR: Stable. ABDOMEN: Soft. NEUROLOGIC: Baseline. Continue on IV antibiotic therapy of Levaquin for Escherichia coli. IMPRESSION: Sepsis, Escherichia coli urinary tract infection, essential hypertension, type 2 diabetes, thalassemia. PERLA LORENZO MD DR: WALESKA/kenneth JOB#: [id number] / [id number]
[2020-09-29] MEDS: ENOXAPARIN 40 MG/0.4 ML SYRINGE. SQ SCH (17:26)
[2020-09-29 19:05] VITALS: BP 145/67
[2020-09-29] MEDS: DONEPEZIL HCL 5 MG TABLET. PO SCH (20:28)
[2020-09-29] MEDS: NON FORMULARY ITEM (Pravastatin Sodium 1 TAB) PO SCH (20:30)
[2020-09-29] MEDS: INSULIN GLARGINE SYRINGE. SQ SCH (21:00)
[2020-09-29 22:26] VITALS: BP 151/69
[2020-09-30 05:14] VITALS: BP 179/79
[2020-09-30] MEDS: INSULIN LISPRO 300 UNITS/3 ML VIAL. SQ SCH ×4 (07:30→20:07)
[2020-09-30] MEDS: LACTOBACILLUS RHAMNOSUS GG 1 CAPSULE. PO SCH ×2 (07:58→20:06)
[2020-09-30] MEDS: CARVEDILOL 12.5 MG TABLET PO SCH ×2 (07:59→17:59)
[2020-09-30] MEDS: ARIPiprazole 5 MG TABLET PO SCH (07:59)
[2020-09-30] MEDS: ASPIRIN ENTERIC COATED 81 MG TABLET.DR. PO SCH (07:59)
[2020-09-30] MEDS: CARBIDOPA/LEVODOPA 25/100MG TABLET PO SCH ×4 (07:59→20:06)
[2020-09-30] MEDS: metFORMIN 500 MG TABLET PO SCH ×2 (07:59→17:59)
[2020-09-30] MEDS: LISINOPRIL 20 MG TABLET PO SCH (08:00)
[2020-09-30] MEDS: LIDOCAINE (700MG/PATCH) PATCH. TD SCH (08:00)
[2020-09-30] MEDS: lamoTRIgine 100 MG TABLET. PO SCH ×2 (08:00→20:06)
[2020-09-30] MEDS: FUROSEMIDE 20 MG TABLET PO SCH (08:00)
[2020-09-30 10:58] VITALS: BP 185/80
[2020-09-30] MEDS ORDERED: CARVEDILOL 12.5 MG TABLET PO ONE (12:15)
[2020-09-30] MEDS: CYANOCOBALAMIN (VITAMIN B-12) 1,000 MCG TABLET. PO SCH (12:36)
[2020-09-30] MEDS: CHOLECALCIFEROL (VITAMIN D3) 1,000 UNIT TABLET PO SCH (12:36)
[2020-09-30] MEDS: MULTIVITAMIN with MINERAL TABLET. PO SCH (12:36)
[2020-09-30 15:35] VITALS: BP 185/74
[2020-09-30] MEDS: ENOXAPARIN 40 MG/0.4 ML SYRINGE. SQ SCH (18:01)
--- NOTE | 2020-09-30 19:14 | PN ---
DATE: SUBJECTIVE: A 80-year-old female in with sepsis, urinary tract infection. The patient's blood pressure has been elevated, but the patient was without any complaint. Increased her blood pressure medications. Otherwise, she is still receiving IV antibiotic therapy for her sepsis, urinary tract infection. OBJECTIVE: VITAL SIGNS: Otherwise, her blood pressure 185/74 (NC), respiratory rate 20, pulse 80, afebrile, 95% oxygen saturation. GENERAL: The patient was alert and oriented, baseline has a very rough tremor consistent with her severe Parkinson's disease. LUNGS: Clear. CARDIOVASCULAR: Stable. ABDOMEN: Soft. EXTREMITIES: No clubbing, cyanosis or edema. NEUROLOGIC: Alert, baseline except for her Parkinson's. LABORATORY DATA: Hemoglobin and hematocrit 10 and 31. Blood sugars were also being monitored. IMPRESSION: Sepsis, urinary tract infection, probable Escherichia coli, severe Parkinson's disease, hypertensive urgency. PLAN: The patient continues to be monitored. IV antibiotic therapy. Monitor blood sugars, received PT, OT. PERLA LORENZO MD DR: WALESKA/kenneth JOB#: [id number] / [id number]
[2020-09-30 19:16] VITALS: BP 150/70
[2020-09-30] MEDS: DONEPEZIL HCL 5 MG TABLET. PO SCH (20:05)
[2020-09-30] MEDS: NON FORMULARY ITEM (Pravastatin Sodium 1 TAB) PO SCH (20:06)
[2020-09-30] MEDS: INSULIN GLARGINE SYRINGE. SQ SCH (20:07)
[2020-10-01 05:08] VITALS: BP 169/76
[2020-10-01] MEDS: INSULIN LISPRO 300 UNITS/3 ML VIAL. SQ SCH ×2 (07:30→12:06)
[2020-10-01] MEDS: FUROSEMIDE 20 MG TABLET PO SCH (08:10)
[2020-10-01] MEDS: ASPIRIN ENTERIC COATED 81 MG TABLET.DR. PO SCH (08:10)
[2020-10-01] MEDS: ARIPiprazole 5 MG TABLET PO SCH (08:10)
[2020-10-01] MEDS: LACTOBACILLUS RHAMNOSUS GG 1 CAPSULE. PO SCH (08:11)
[2020-10-01] MEDS: LISINOPRIL 20 MG TABLET PO SCH (08:11)
[2020-10-01] MEDS: metFORMIN 500 MG TABLET PO SCH (08:11)
[2020-10-01] MEDS: CARVEDILOL 12.5 MG TABLET PO SCH (08:11)
[2020-10-01] MEDS: lamoTRIgine 100 MG TABLET. PO SCH (08:11)
[2020-10-01 08:12] VITALS: BP 169/76
[2020-10-01] MEDS: CARBIDOPA/LEVODOPA 25/100MG TABLET PO SCH ×2 (08:12→12:08)
[2020-10-01] MEDS: LIDOCAINE (700MG/PATCH) PATCH. TD SCH (08:16)
--- NOTE | 2020-10-01 10:02 | DS ---
DATE OF DISCHARGE: 10/01/2020 HOSPITAL COURSE: This 80-year-old female with history of severe Parkinson's disease, came in extremely weak, lethargic. She was septic and was found to have a significant urinary tract infection with greater than 40 white blood cells per high powered field. The patient also had a loss of consciousness. As a result of her sepsis and also had problems with hypertensive urgency and tachycardia, the patient was placed on IV antibiotic therapy, results came back E. coli. Blood cultures were negative, but the urine culture did show that greater than 40 white blood cells. She has thalassemia. Her hemoglobin and hematocrit are low at 10 and 31. Blood sugars were monitored. She is a type 2 diabetic. She does have chronic Parkinson tremors and she has problems with incontinence and this is probably what is instigating her situation with her multiple urinary tract infections. Apparently in any case, she made excellent progress. She will be discharged home on oral antibiotics. IMPRESSION; Therefore, sepsis, metabolic encephalopathy, type 2 diabetes, Parkinson's disease. The patient will be discharged home and followed up as an outpatient. Her renal function at the end of therapy 12 and 0.9. Hemoglobin and hematocrit as noted 10 and 31, white count 9. She will be discharged home on a diabetic diet, decreased activity, see MRAD. Follow up accordingly. PERLA LORENZO MD DR: WALESKA/kenneth JOB#: [id number] / [id number]
[2020-10-01] MEDS ORDERED: INSU100V31 SQ (10:43)
[2020-10-01] MEDS ORDERED: LEVO500T8 PO (10:43)
[2020-10-01] MEDS ORDERED: LISI-334 PO (10:43)
--- NOTE | 2020-10-01 10:46 | DISCH ---
HOME HEALTH DISCHARGE/MEDS DISCHARGE INFORMATION: Discharge Date: Oct 01, 2020 Final Diagnosis: Problems Medical Problems: (1) Generalized muscle weakness Status: Acute (2) UTI (urinary tract infection) Status: Acute Condition on Discharge: Stable CODE STATUS: Code Status: Full HOME HEALTH: Face to Face: I certify this patient is under my care and that I, or a nurse practitioner or physician's anatomic pathology assistant working with me, had a face to face encounter that meets the physician face to face encounter requirements with this patient on 10/01/20. Medical Condition(s): DM, Falls, HTN, Other (Parkinson's) Assisted For: Assess Cardiopulm Status, Assess & Educate Safety, Assess/Skilled Observatio, Medication Management, Pain Management Physical Therapy For: Evalulation/Treatment Occupational Therapy For: Evaluation/Treatment Homebound Status Met By: Extreme weakness w/ amb. POST DISCHARGE ORDERS: DIET AFTER DISCHARGE: ADA CHECKS AFTER DISCHARGE: Checks after discharge: Check blood press - daily, Check blood sugar, ac/hs CERTIFICATION STATEMENT: Certification Statement: Based on the above finding, I certify that this patient is confined to the home and needs intermittent jail care, physical therapy and/or speech therapy, or continues to need occupational therapy.~ This patient is under my care, and I have initiated the establishment of the plan of care.~ This patient will be followed by myself or a community physician who will periodically review the plan of care. DISCHARGE MEDICATIONS: Home Meds Active Scripts Nitrofurantoin Monohyd/M-Cryst (MACROBID 100 MG CAPSULE) 100 Mg Capsule, 1 CAP PO BID for uti for 5 Days, #10 CAP 0 Refills Prov:LESLI SAINZ DO 05/05/20 Lanolin Alcohol/Mo/W.pet/[place] (Hydrocerin Cream) 454 Gm Cream..g., 1 ROMEL TP PRN Q1HR PRN for DRY SKIN / SCALING, #1 EACH Prov:PERLA LORENZO MD 11/24/19 Lidocaine (Lidocaine PATCH ) 1 Each Adh..patch, 2 PATCH TD DAILY for pain, #20 PATCH Prov:PERLA LORENZO MD 11/24/19 Hydrocodone Bit/Acetaminophen (HYDROCODONE-APAP 5-325 ) 1 Each Tablet, 2 TAB PO PRN Q6HRS PRN for MODERATE PAIN, #60 TAB Prov:PERLA LORENZO MD 11/18/19 Furosemide (FUROSEMIDE) 20 Mg Tablet, 20 MG PO DAILY for edema for 30 Days, #30 TAB Prov:PERLA LORENZO MD 11/18/19 Lactobacillus Rhamnosus Gg (CULTURELLE) 1 Each Cap.sprink, 1 CAP PO BID for probiotic for 30 Days, #60 CAP 2 Refills Prov:PERLA LORENZO MD 11/18/19 Aripiprazole (ABILIFY) 5 Mg Tablet, 5 MG PO DAILY for depression for 30 Days, #30 TAB 3 Refills Prov:PERLA LORENZO MD 11/18/19 Polyethylene Glycol 3350 (MIRALAX) 17 Gm Powd.pack, 17 GM PO PRN DAILY PRN for constipation, #1 BOTTLE Prov:PERLA LORENZO MD 10/01/16 Docusate Sodium (COLACE) 100 Mg Capsule, 100 MG PO PRN BID PRN for CONSTIPATION, #60 CAP Prov:PERLA LORENZO MD 10/01/16 Reported Medications Insulin Aspart (NOVOLOG) 100 Unit/1 Ml Vial, 1-10 UNIT SQ QIDACHS for HYPERGLYCEMIA, VIAL LAST DOSE GIVEN: DATE: TODAY TIME: WITH BREAKFAST NEXT DOSE DUE: DATE: TODAY TIME: WITH SUPPER IF NEEDED 11/15/19 Insulin Glargine,Hum.rec.anlog (LANTUS SOLOSTAR) 100 Unit/1 Ml Insuln.pen, 12 UNIT SQ QHS for Diabetes LAST DOSE GIVEN: DATE: YESTERDAY TIME: BEDTIME NEXT DOSE DUE: DATE: TODAY TIME: BEDTIME 06/07/19 Cyanocobalamin (Vitamin B-12) (VITAMIN B-12) 1,000 Mcg Tablet, 1000 MCG PO DAILYWLUN for SUPPLEMENT LAST DOSE GIVEN: DATE: TODAY TIME: WITH LUNCH NEXT DOSE DUE: DATE: TOMORROW TIME: WITH LUNCH 09/19/16 Krill/Om-3/Dha/Epa/Phospho/Ast (KRILL OIL 1,000 MG SOFTGEL) 1 Each Capsule, 1 EACH PO DAILYWLUN for HEART HEALTH LAST DOSE GIVEN: DATE: TODAY TIME: WITH LUNCH NEXT DOSE DUE: DATE: TOMORROW TIME: WITH LUNCH 09/19/16 Cranberry Extract (CRANBERRY) 250 Mg Capsule, 500 MG PO DAILYWLUN for URINARY HEALTH NEXT DOSE DUE: DATE: RESTART TODAY TIME: WHEN YOU GET HOME 09/19/16 Nifedipine (NIFEDIPINE ER) 60 Mg Tablet.er, 60 MG PO DAILY for HIGH BLOOD PRESSURE LAST DOSE GIVEN: DATE: TODAY TIME: AM NEXT DOSE DUE: DATE: TOMORROW TIME: AM 09/19/16 Fosinopril Sodium (FOSINOPRIL SODIUM) 40 Mg Tablet, 20 MG PO DAILY for HIGH BLOOD PRESSURE LAST DOSE GIVEN: DATE: TIME: AM NEXT DOSE DUE: DATE: TOMORROW TIME: AM 09/19/16 Cholecalciferol (Vitamin D3) (VITAMIN D) 1,000 Unit Capsule, 1 CAP PO DAILYWLUN for BONE HEALTH LAST DOSE GIVEN: DATE: TODAY TIME: WITH LUNCH NEXT DOSE DUE: DATE: TOMORROW TIME: WITH LUNCH 09/24/15 Carbidopa/Levodopa (CARBIDOPA-LEVODOPA 25-100 TAB) 1 Each Tablet, 1 EACH PO QID for PARKINSON'S TREMORS LAST DOSE GIVEN: DATE: TIME: AFTERNOON NEXT DOSE DUE: DATE: TODAY TIME: EVENING 09/24/15 Donepezil Hcl (DONEPEZIL HCL) 5 Mg Tablet, 1 TAB PO QHS for MEMORY LAST DOSE GIVEN: DATE: YESTERDAY TIME: AT BEDTIME NEXT DOSE DUE: DATE: TODAY TIME: WITH BEDTIME 09/24/15 Lamotrigine (LAMICTAL) 150 Mg Tablet, 150 MG PO BID for mood stabilizer LAST DOSE GIVEN: DATE: TODAY TIME: AM NEXT DOSE DUE: DATE: TODAY TIME: PM 03/02/15 Magnesium Hydroxide (MILK OF MAGNESIA) 2,400 Mg/10 Ml Oral.susp, 2400 MG PO PRN QHS PRN for CONSTIPATION NOT TAKEN, TAKE IF/WHEN NEEDED FOR CONSTIPATION. DATE: NOT GIVEN TIME: NEXT DOSE DUE: DATE: TODAY TIME: IF NEEDED 03/02/15 Mag Hydrox/Al Hydrox/Simeth (ADVANCED ANTACID LIQUID) 355 Ml Oral.susp, 15 ML PO PRN AFTMEALHC PRN for HEARTBURN / GAS NOT TAKEN, TAKE IF/WHEN NEEDED FOR GAS/HEARTBURN DATE: NOT GIVEN TIME: NEXT DOSE DUE: DATE: TODAY TIME: IF NEEDED 03/02/15 Acetaminophen (TYLENOL) 325 Mg Tablet, 2 TAB PO PRN Q6HRS PRN for PAIN Not taken, take if/when needed for pain. DATE: TIME: NEXT DOSE DUE: DATE: TODAY TIME: IF NEEDED 03/02/15 Multivitamin (DAILY MULTIPLE VITAMIN) 1 Each Tablet, 1 EACH PO DAILYWLUN for SUPPLEMENT LAST DOSE GIVEN: DATE: TODAY TIME: WITH LUNCH NEXT DOSE DUE: DATE: TOMORROW TIME: WITH LUNCH 02/17/15 Metformin Hcl (METFORMIN HCL) 1,000 Mg Tablet, 1 TAB PO BIDWMEALS for HIGH BLOOD SUGAR LAST DOSE GIVEN: DATE: TODAY TIME: WITH BREAKFAST NEXT DOSE DUE: DATE: TODAY TIME: WITH DINNER 02/17/15 Carvedilol (CARVEDILOL) 25 Mg Tablet, 1 TAB PO BID for IRREGULAR HEARTRATE LAST DOSE GIVEN: DATE: TODAY TIME: AM NEXT DOSE DUE: DATE: TODAY TIME; PM 02/17/15 Levothyroxine Sodium (LEVOTHYROXINE SODIUM) 50 Mcg Tablet, 75 MCG PO DAILY06 for LOW THYROID HORMONES LAST DOSE GIVEN: DATE: TODAY TIME: AM NEXT DOSE DUE: DATE: TOMORROW TIME: AM 02/17/15 Pravastatin Sodium (PRAVASTATIN SODIUM) 80 Mg Tablet, 1 TAB PO QHS for HIGH CHOLESTEROL LAST DOSE GIVEN: DATE: YESTERDAY TIME: AT BEDTIME NEXT DOSE DUE: DATE: TODAY TIME: AT BEDTIME 02/17/15 Aspirin (ASPIR 81) 81 Mg Tablet.dr, 1 TAB PO DAILY for PREVENT BLOOD CLOTS LAST DOSE GIVEN: DATE: TODAY TIME: AM NEXT DOSE DUE: DATE: TOMORROW TIME: AM 02/17/15 PERLA LORENZO MD Oct 01, 2020 10:46
[2020-10-01] MEDS: CHOLECALCIFEROL (VITAMIN D3) 1,000 UNIT TABLET PO SCH (12:08)
[2020-10-01] MEDS: CYANOCOBALAMIN (VITAMIN B-12) 1,000 MCG TABLET. PO SCH (12:08)
[2020-10-01] MEDS: MULTIVITAMIN with MINERAL TABLET. PO SCH (12:08)
--- NOTE | 2020-10-01 13:40 | NUR ---
Discharge Note: ALFREDITO CABRALES [address] Discharge instructions and discharge home medications reviewed with Patient and a copy given. All questions have been answered and understanding verbalized. Discontinued IV lines. Patient discharged to Home w/services of [facility]. THis RN wheeled pt to son's vehicle and discussed discharge instructions and medications with him as well. All belongings left with pt at discharge.
== END 2020-10-01 13:40 | disposition home health service (06) | DRG 871 ==
LOC: ER 08:45 → 1 SOUTH 10:36
PROVIDERS: ADMIT Family Medicine; ATTEND Family Medicine
DX: A41.9 Sepsis, unspecified organism (principal); G93.41 Metabolic encephalopathy; N12 Tubulo-interstitial nephritis, not specified as acute or chronic; B96.20 Unspecified Escherichia coli [E. coli] as the cause of diseases classified elsewhere; D56.9 Thalassemia, unspecified; E03.9 Hypothyroidism, unspecified; E11.9 Type 2 diabetes mellitus without complications; E78.00 Pure hypercholesterolemia, unspecified; G20 Parkinson's disease; F02.80 Dementia in other diseases classified elsewhere, unspecified severity, without behavioral disturbance, psychotic disturbance, mood disturbance, and anxiety; F31.9 Bipolar disorder, unspecified; G30.9 Alzheimer's disease, unspecified; I11.0 Hypertensive heart disease with heart failure; I16.0 Hypertensive urgency; F41.9 Anxiety disorder, unspecified; I50.9 Heart failure, unspecified; M17.11 Unilateral primary osteoarthritis, right knee; Z83.3 Family history of diabetes mellitus; Z82.49 Family history of ischemic heart disease and other diseases of the circulatory system; Z95.5 Presence of coronary angioplasty implant and graft; Z88.8 Allergy status to other drugs, medicaments and biological substances; Z91.041 Radiographic dye allergy status; Z79.899 Other long term (current) drug therapy; Z79.84 Long term (current) use of oral hypoglycemic drugs
CPT/HCPCS: 36415; 70450; 71045; 73521; 80048; 80053; 81001; 82947; 83690; 84484; 85025; 85610; 87040; 87077; 87086; 87186; 93005; 96361; 96365; J0696; J1650; J1815; J1956; J2543; J7040; 97116; 97530; 99285-25

== ENCOUNTER → 2020-10-15 | Outpatient (CLI) | payer MEDICARE, BC ==
[2020-10-01 08:12] VITALS: BP 169/76
[~2020-10-15] MED LIST changes: +LEVO500T8 PO; -LISI-334 PO; +LISI20TA18 PO
== END ==
LOC: LAB 13:12
PROVIDERS: ATTEND Family Medicine
DX: A04.72 Enterocolitis due to Clostridium difficile, not specified as recurrent (principal)
CPT/HCPCS: 36415; 87493

== ENCOUNTER 2021-01-21 19:11 | Inpatient (IN) | payer MEDICARE, BC ==
[~2021-01-21] VITALS: Ht 165.1 cm; Wt 78.0 kg
[~2021-01-21 19:11] MED LIST changes: -VANC1VIA3 MC; +VANC1VIA34 MC
[2021-01-21] MEDS ORDERED: POTA20TA4 PO (19:55)
[2021-01-21] MEDS ORDERED: LEVO88TA4 PO (19:55)
[2021-01-21] MEDS ORDERED: TORS20TA2 PO (19:55)
[2021-01-21] MEDS ORDERED: OXYB5TAB10 PO (19:55)
[2021-01-21] MEDS ORDERED: MAGN400T5 PO (19:55)
[2021-01-21] MEDS ORDERED: FOSI40TA4 PO (19:55)
[2021-01-21 19:56] VITALS: BP 184/70
[2021-01-21] MEDS ORDERED: TORSEMIDE 20 MG TABLET. PO PRN (21:00)
[2021-01-21] MEDS ORDERED: POTASSIUM CHLORIDE 20 MEQ TABLET.ER. PO PRN (21:00)
[2021-01-21] MEDS: NON FORMULARY ITEM (Pravastatin Sodium 1 TAB) PO SCH (21:00)
[2021-01-21] MEDS ORDERED: DEXTROSE 50% 25 GM / 50ML DISP.SYRIN. IV PRN (22:30)
[2021-01-21] MEDS: INSULIN LISPRO 300 UNITS/3 ML VIAL. SQ SCH (22:56)
[2021-01-21] MEDS: INSULIN GLARGINE SYRINGE. SQ SCH (22:57)
[2021-01-21] MEDS: CARBIDOPA/LEVODOPA 25/100MG TABLET PO SCH (22:57)
[2021-01-21] MEDS: MAGNESIUM OXIDE 400 MG TABLET PO SCH (22:58)
[2021-01-21] MEDS: lamoTRIgine 100 MG TABLET. PO SCH (22:58)
[2021-01-21 23:05] VITALS: BP 192/77
[2021-01-21 23:09] LABS: BILIRUBIN,URINE NEG (NEG); CLARITY,URINE CLEAR; COLOR,URINE COLORLESS; GLUCOSE,URINE 100 mg/dL (NEG)
[2021-01-21 23:10] LABS: BACTERIA,URINE 0 /HPF (0-FEW); NITRITE,URINE NEG (NEG); RBC,URINE 0 /HPF (0-2); SQUAMOUS EPITHELIAL CELL,UR OCC /LPF; UROBILINOGEN,URINE 0.2 mg/dL (0.2 mg/dL); WBC,URINE OCC /HPF (0-4)
[2021-01-21 23:13] LABS: BASO # 0.1 x10^3/uL (0.0-0.2); BASO % 1 % (0-3); EOS # 0.2 x10^3/uL (0.0-0.7); EOS % 2 % (0-3); HEMATOCRIT 28.9 % (36.0-47.0); HEMOGLOBIN 8.9 g/dL (12.0-15.5); LYMPH # 1.6 x10^3/uL (1.0-4.8); LYMPH % 18 % (24-48); MEAN CORPUSCULAR HEMOGLOBIN 21 pg (25-35); MEAN CORPUSCULAR HGB CONC 31 g/dL (31-37); MEAN CORPUSCULAR VOLUME 68 fL (79-100); MONO # 0.4 x10^3/uL (0.0-1.1); MONO % 5 % (0-9); NEUT # 6.8 x10^3uL (1.8-7.7); NEUT % 75 % (31-73); PLATELET COUNT 365 x10^3/uL (140-400); RED BLOOD COUNT 4.23 x10^6/uL (3.50-5.40); RED CELL DISTRIBUTION WIDTH 15.7 % (11.5-14.5); WHITE BLOOD COUNT 9.1 x10^3/uL (4.0-11.0)
[2021-01-21 23:21] LABS: ALBUMIN 3.5 g/dL (3.4-5.0); CALCIUM 9.6 mg/dL (8.5-10.1); CREATININE 1.3 mg/dL (0.6-1.0); GFR 47.9; POTASSIUM 4.1 mmol/L (3.5-5.1); TOTAL BILIRUBIN 0.4 mg/dL (0.2-1.0)
--- NOTE | 2021-01-21 23:29 | NUR ---
The patient, ALFREDITO CABRALES, 80 y/o, F admitted by PERLA LORENZO MD, was given written information regarding hospital policies, unit procedures and contact persons. Valuables were checked and vital signs noted. Reviewed with the PT her PMH, PSH, SH, FH and medications with her and her at the time of admission.
[2021-01-21] MEDS: CARVEDILOL 12.5 MG TABLET PO SCH (23:32)
[2021-01-22] MEDS: LEVOTHYROXINE 88 MCG TABLET PO SCH (06:00)
--- NOTE | 2021-01-22 06:03 | RAD ---
EXAM: CHEST ONE VIEW. HISTORY: Congestive heart failure, edema. COMPARISON: 09/26/2020. FINDINGS: A frontal view of the chest is obtained. There is eventration of the right hemidiaphragm. There are mild interstitial infiltrates in the bases . There are no confluent infiltrates. There is no pneumothorax or pleural effusion. The heart is mild ly enlarged. IMPRESSION: 1. Trace pulmonary edema versus basilar atelectasis. Mild cardiomegaly. Electronically signed by: Reema Berkowitz MD (01/22/2021 6:00 AM) [facility]
[2021-01-22 06:25] VITALS: BP 195/82
[2021-01-22] MEDS: DONEPEZIL HCL 5 MG TABLET. PO SCH (08:11)
[2021-01-22] MEDS: LISINOPRIL 20 MG TABLET PO SCH (08:11)
[2021-01-22] MEDS: OXYBUTYNIN CHLORIDE 5 MG TABLET PO SCH (08:12)
[2021-01-22] MEDS: lamoTRIgine 100 MG TABLET. PO SCH ×2 (08:13→21:15)
[2021-01-22] MEDS: CARBIDOPA/LEVODOPA 25/100MG TABLET PO SCH ×4 (08:13→21:16)
[2021-01-22] MEDS: metFORMIN 500 MG TABLET PO SCH ×2 (08:13→17:11)
[2021-01-22] MEDS: ARIPiprazole 5 MG TABLET PO SCH (08:14)
[2021-01-22] MEDS: ASPIRIN ENTERIC COATED 81 MG TABLET.DR. PO SCH (08:14)
[2021-01-22] MEDS: CARVEDILOL 12.5 MG TABLET PO SCH ×3 (08:14→21:15)
[2021-01-22] MEDS: MAGNESIUM OXIDE 400 MG TABLET PO SCH ×2 (08:14→21:16)
[2021-01-22] MEDS: ACETAMINOPHEN 325 MG TABLET PO PRN (08:21)
--- NOTE | 2021-01-22 09:53 | EKG ---
[address] [address] Test Date: 2021-01-22 Test Time: 04:37:59 Pat Name: ALFREDITO [place] Department: Room: 105 A Gender: F Photographic Specialist: : [id number] Requested By: PERLA LORENZO Order Number: [id number] Reading MD: Measurements Intervals [place] Rate: 77 P: 40 OR: 190 QRS: 22 QRSD: 80 T: 67 QT: 378 QTc: 430 Interpretive Statements SINUS RHYTHM T ABNORMALITY IN HIGH LATERAL LEADS ABNORMAL ECG RI6.01 No previous ECG available for comparison
[2021-01-22] MEDS: FUROSEMIDE 40 MG/4 ML VIAL IVP SCH ×2 (09:54→14:21)
[2021-01-22 11:45] VITALS: BP 182/74
[2021-01-22] MEDS ORDERED: NON FORMULARY ITEM (Cranberry Extract (Cranberry) 500 MG) PO SCH (12:00)
[2021-01-22] MEDS: CYANOCOBALAMIN (VITAMIN B-12) 1,000 MCG TABLET. PO SCH (12:09)
[2021-01-22] MEDS: CHOLECALCIFEROL (VITAMIN D3) 1,000 UNIT TABLET PO SCH (12:09)
[2021-01-22] MEDS: OMEGA-3 FATTY ACIDS/FISH OIL 1,000 MG CAPSULE. PO SCH (12:09)
[2021-01-22] MEDS: MULTIVITAMIN with MINERAL TABLET. PO SCH (12:09)
[2021-01-22] MEDS: INSULIN LISPRO 300 UNITS/3 ML VIAL. SQ SCH ×3 (12:13→21:18)
--- NOTE | 2021-01-22 15:17 | NUR ---
NURSING NOTE CONSULT PT SON CALLED AND PROVIDED PASSCODE, STATES PT SEES DR SUN OUTPATIENT AND PER FAMILY REQUEST THEY WOULD LIKE HIM TO SEE HER WHILE SHE IS HERE, STATES AT HOME SHE IS NOT SLEEPING WELL, IS MANIC, HAS FLIGHT OF IDEAS THAT DO NOT MAKE SENSE, HAS BEEN MAKING PHONE CALLS TO PEOPLE AND TALKING FOR 200+ MIN ON THE PHONE AT ONE TIME, NEVER HAS DONE THAT IN THE PAST, DEPRESSION ETC. SPOKE WITH PRIMITIVO GAO FOR CONSULT TO DR SUN. CONSULT FAXED. BRIAN MARTINEZ.
[2021-01-22 15:26] VITALS: BP 187/65
[2021-01-22 19:10] VITALS: BP 154/68
[2021-01-22] MEDS: NON FORMULARY ITEM (Pravastatin Sodium 1 TAB) PO SCH (21:00)
--- NOTE | 2021-01-22 21:02 | HP ---
HISTORY OF PRESENT ILLNESS: A 80-year-old female with history of multiple medical problems, noted a 2-3 day history of increased shortness of breath, marked dyspnea, orthopnea and chest tightness. The patient has a long history of coronary artery disease and as a result of this, the patient was admitted to the hospital for further evaluation as she was orthopneic and increase in weight and water retention in her extremities as well as the chest x-ray showing images of pulmonary edema. The patient was admitted for congestive heart failure. PAST MEDICAL HISTORY: Encephalopathy retinopathy, Parkinson's disease, Alzheimer's disease, coronary stent, x1, hypercholesterolemia, hypertension, DVT, cholecystectomy, fibroid, urinary tract infections, right knee arthroscopy, endocrine disorders of diabetes, hypothyroidism, has a blood disorder of thalassemia, psychiatric problems, bipolar disorder, depression and anemia, hematological symptoms, diphtheria. IMMUNIZATIONS: Tetanus vaccine, influenza and pneumococcal all up to date. FAMILY HISTORY: Positive for sickle cell and some of family members, hypertension, diabetes and cardiovascular disease. ALLERGIES: Adverse reactions are to ATORVASTATIN, LIPITOR, IODINE, PIOGLITAZONE. SOCIAL HISTORY: Denies any smoking, alcohol or drug use. The patient currently lives at home with her , has a very caring son. CODE: Full code. REVIEW OF SYSTEMS: The patient denies any headaches, visual changes, blurred vision, double vision, but does note increased shortness of breath, orthopnea, chest tightness. Denies any nausea or vomiting, hematochezia, hematemesis. Neurologically, the patient was alert and oriented. PHYSICAL EXAMINATION: GENERAL: This is a pleasant female, looking somewhat short of breath. VITAL SIGNS: Blood pressure 192/77, respiratory rate 14, pulse 80, afebrile. HEENT: The patient's head was atraumatic, normocephalic. Eyes: PERRLA without jaundice. Mouth and throat were normal. NECK: Supple, no JVD, carotid bruit or thyromegaly. LUNGS: Diminished throughout, poor movement of air. There are rales and rhonchi noted in the bases. CARDIOVASCULAR: Regular sinus rhythm. ABDOMEN: Protuberant, soft, diffuse tenderness, but no rebounding or guarding. Positive bowel sounds. EXTREMITIES: No clubbing, cyanosis. There is +2 to 3 pitting edema. Pulses noted distally. NEUROLOGIC: Alert and oriented. LABORATORY DATA: The patient's labs did show hemoglobin of 8.9 and hematocrit 28, white count 9. Chemistries showed cardiac enzymes were negative; however, BNP was over 900. The sodium and potassium are 145 and 4.1, BUN and creatinine 25 and 1.3. Blood sugar of 251. UA was pretty much nonconclusive. ASSESSMENT AND PLAN: In any case, the patient was admitted for acute on top of chronic congestive heart failure, type 2 diabetes, bipolar disease, history of coronary artery disease. The patient will be admitted for further evaluation and diuresis. Also, consult with psychiatry per family's request for her bipolar situation. JAYCE DR: Ananth TID: [id number]
[2021-01-22] MEDS: INSULIN GLARGINE SYRINGE. SQ SCH (21:19)
[2021-01-22 23:27] VITALS: BP 146/82
[2021-01-23] MEDS: ACETAMINOPHEN 325 MG TABLET PO PRN ×4 (00:24→21:06)
[2021-01-23 05:34] VITALS: BP 185/72
[2021-01-23] MEDS: LEVOTHYROXINE 88 MCG TABLET PO SCH (05:41)
--- NOTE | 2021-01-23 05:43 | NUR ---
PT with insomnia most of night, talking continuously but always polite. PT with current flight of ideas. PT obsessing on blood sugar requesting to be tested multiple times in the night. PT incontinent x2 tonight. At beginning of shift, PT calling multiple phone numbers (most were not in service).
[2021-01-23 06:08] LABS: BASO % 1 % (0-3); EOS # 0.2 x10^3/uL (0.0-0.7); EOS % 3 % (0-3); HEMATOCRIT 29.9 % (36.0-47.0); HEMOGLOBIN 9.4 g/dL (12.0-15.5); LYMPH # 1.4 x10^3/uL (1.0-4.8); LYMPH % 19 % (24-48); MEAN CORPUSCULAR HEMOGLOBIN 21 pg (25-35); MEAN CORPUSCULAR HGB CONC 31 g/dL (31-37); MEAN CORPUSCULAR VOLUME 68 fL (79-100); MONO # 0.3 x10^3/uL (0.0-1.1); MONO % 4 % (0-9); NEUT # 5.5 x10^3uL (1.8-7.7); NEUT % 74 % (31-73); PLATELET COUNT 372 x10^3/uL (140-400); RED BLOOD COUNT 4.41 x10^6/uL (3.50-5.40); RED CELL DISTRIBUTION WIDTH 15.9 % (11.5-14.5); WHITE BLOOD COUNT 7.3 x10^3/uL (4.0-11.0)
[2021-01-23 06:13] LABS: CALCIUM 9.8 mg/dL (8.5-10.1); CREATININE 1.2 mg/dL (0.6-1.0); GFR 52.6; POTASSIUM 3.5 mmol/L (3.5-5.1)
[2021-01-23 07:50] LABS: HYPOCHROMIA MOD; MICROCYTOSIS MOD; PLT ESTIMATE ADEQUATE (ADEQUATE)
[2021-01-23] MEDS: INSULIN LISPRO 300 UNITS/3 ML VIAL. SQ SCH ×4 (08:00→21:15)
[2021-01-23] MEDS: MAGNESIUM OXIDE 400 MG TABLET PO SCH ×2 (09:00→21:00)
[2021-01-23 10:37] VITALS: BP 191/72
[2021-01-23] MEDS: CARBIDOPA/LEVODOPA 25/100MG TABLET PO SCH ×4 (10:45→21:07)
[2021-01-23] MEDS: OXYBUTYNIN CHLORIDE 5 MG TABLET PO SCH (10:45)
[2021-01-23] MEDS: CHOLECALCIFEROL (VITAMIN D3) 1,000 UNIT TABLET PO SCH (10:45)
[2021-01-23] MEDS: CYANOCOBALAMIN (VITAMIN B-12) 1,000 MCG TABLET. PO SCH (10:46)
[2021-01-23] MEDS: lamoTRIgine 100 MG TABLET. PO SCH ×2 (10:46→21:07)
[2021-01-23] MEDS: OMEGA-3 FATTY ACIDS/FISH OIL 1,000 MG CAPSULE. PO SCH (10:46)
[2021-01-23] MEDS: CARVEDILOL 12.5 MG TABLET PO SCH ×3 (10:46→21:07)
[2021-01-23] MEDS: ASPIRIN ENTERIC COATED 81 MG TABLET.DR. PO SCH (10:46)
[2021-01-23] MEDS: DONEPEZIL HCL 5 MG TABLET. PO SCH (10:47)
[2021-01-23] MEDS: ARIPiprazole 5 MG TABLET PO SCH (10:47)
[2021-01-23] MEDS: LISINOPRIL 20 MG TABLET PO SCH (10:47)
[2021-01-23] MEDS: MULTIVITAMIN with MINERAL TABLET. PO SCH (10:47)
[2021-01-23] MEDS: metFORMIN 500 MG TABLET PO SCH ×2 (10:47→18:21)
[2021-01-23] MEDS: FUROSEMIDE 40 MG/4 ML VIAL IVP SCH ×2 (10:48→15:50)
[2021-01-23] MEDS ORDERED: cloNIDine TTS-2 1 PATCH PATCH TD SCH (13:00)
[2021-01-23 14:14] VITALS: BP 172/71
[2021-01-23 19:14] LABS: ANA INTERP Negative (.)
[2021-01-23 20:47] VITALS: BP 165/79
[2021-01-23] MEDS: INSULIN GLARGINE SYRINGE. SQ SCH (21:14)
[2021-01-23] MEDS: NON FORMULARY ITEM (Pravastatin Sodium 1 TAB) PO SCH (21:17)
[2021-01-23 22:49] VITALS: BP 175/74
--- NOTE | 2021-01-24 00:03 | PN ---
SUBJECTIVE: A 80-year-old female, admitted with acute on top of chronic congestive heart failure. Resting fairly comfortably, still very manic phase and having problems controlling her thought process, trying to get [facility] to review the patient for possible admission there. PHYSICAL EXAMINATION: VITAL SIGNS: Blood pressure 190/72 (NC), respirations 18, pulse 76, afebrile. GENERAL: The patient otherwise alert. Speech is fairly coherent and appropriate. LUNGS: Clear to auscultation. CARDIOVASCULAR: Regular sinus rhythm. ABDOMEN: Soft, nontender. We will go ahead and adjust that medication. IMPRESSION AND PLAN: Acute on top of chronic diastolic heart failure, essential hypertension, hypertensive urgency, manic depression, anemia, thalassemia. Continue to monitor the patient accordingly as well. VOLODYMYR DR: Ananth TID: [id number]
[2021-01-24 05:02] VITALS: BP 158/72
[2021-01-24] MEDS: LEVOTHYROXINE 88 MCG TABLET PO SCH (05:31)
[2021-01-24] MEDS: INSULIN LISPRO 300 UNITS/3 ML VIAL. SQ SCH ×2 (08:00→11:55)
[2021-01-24] MEDS: ASPIRIN ENTERIC COATED 81 MG TABLET.DR. PO SCH (08:11)
[2021-01-24] MEDS: ACETAMINOPHEN 325 MG TABLET PO PRN (08:11)
[2021-01-24] MEDS: DONEPEZIL HCL 5 MG TABLET. PO SCH (08:11)
[2021-01-24] MEDS: CARBIDOPA/LEVODOPA 25/100MG TABLET PO SCH (08:12)
[2021-01-24] MEDS: FUROSEMIDE 40 MG/4 ML VIAL IVP SCH (08:12)
[2021-01-24] MEDS: CARVEDILOL 12.5 MG TABLET PO SCH (08:12)
[2021-01-24] MEDS: ARIPiprazole 5 MG TABLET PO SCH (08:12)
[2021-01-24] MEDS: metFORMIN 500 MG TABLET PO SCH (08:16)
[2021-01-24] MEDS: LISINOPRIL 20 MG TABLET PO SCH (08:16)
[2021-01-24] MEDS: lamoTRIgine 100 MG TABLET. PO SCH (08:16)
[2021-01-24] MEDS: OXYBUTYNIN CHLORIDE 5 MG TABLET PO SCH (08:16)
[2021-01-24] MEDS: MAGNESIUM OXIDE 400 MG TABLET PO SCH (08:17)
--- NOTE | 2021-01-24 11:01 | RAD ---
Right Leg Venous Doppler Ultrasound, 01/24/2021 10:26 AM Indication: Right lower extremity swelling Comparison: Right lower extremity venous Doppler from 05/05/2020 and priors Procedure: Real-time grayscale, color flow color duplex Doppler and spectral analysis are obtained w ith and without compression in the area of the common femoral vein, superficial femoral vein - femora l vein junction, main femoral vein (superficial femoral vein) and popliteal vein. Veins of the proxim al calf are also imaged. Findings: There is normal duplex flow, color flow and compressibility of all visualized vein segment s. No evidence of deep venous thrombus is present. The peroneal vein is poorly visualized. Impression: No definite evidence of DVT seen in the right lower extremity. Electronically signed by: Viviana Roche MD (01/24/2021 10:59 AM) [id number]
[2021-01-24] MEDS ORDERED: FURO40TA4 PO (11:19)
[2021-01-24] MEDS ORDERED: CARV12.547 PO (11:19)
[2021-01-24] MEDS ORDERED: CLON1PAT2 TD (11:19)
--- NOTE | 2021-01-24 11:20 | NUR ---
NURSING NOTE THIS NURSE SPOKE WITH PT SON ABOUT DISCHARGE PLANNING, PT SON STATES IS THERE ANY OTHER OPTION TO SEND HER TO, OR REFERRAL FOR SOMEONE ELSE TO SEE HER BESIDES DR SUN BECAUSE HE DOES NOT THING SENDING THE PT HOME IN "THIS CONDITION" IS SOMETHING THEY WOULD LIKE. PT HAS NOT HAD ANY OUTBURST FOR THIS NURSE. PT IS A&O X4 AND TOLD THIS NURSE SHE DOES NOT WANT TO GO UPSTAIRS TO [facility]. PT FOLLOWS WITH DR SUN OUTPATIENT AND STATES SHE HAS AN APPOINTMENT ALREADY SCHEDULED. THIS NURSE SPOKE WITH CASE MANAGEMENT AND INFORMED OF PT SON CONCERNS. THIS NURSE FORWARDED PT SON TO SPEAK WITH CASE MANAGEMENT ABOUT DISCHARGE CONCERNS. BRIAN MARTINEZ.
[2021-01-24 11:26] VITALS: BP 160/65
--- NOTE | 2021-01-24 11:28 | DISCH ---
HOME HEALTH DISCHARGE/MEDS DISCHARGE INFORMATION: Discharge Date: January 24, 2021 Final Diagnosis: CHF Hypertension Bipolar, Manic phase Condition on Discharge: Stable CODE STATUS: Code Status: Full HOME HEALTH: Face to Face: I certify this patient is under my care and that I, or a nurse practitioner or physician's title i instructional assistant working with me, had a face to face encounter that meets the physician face to face encounter requirements with this patient on 01/24/2021. Medical Condition(s): CHF, DM, HTN, Other (Bipolar) Usp For: Assess Cardiopulm Status, Assess & Educate Safety, Assess/Skilled Observatio, Medication Management Physical Therapy For: Evalulation/Treatment Occupational Therapy For: Evaluation/Treatment Homebound Status Met By: Poor coordination w/ amb., Unsteady balance w/ amb, POST DISCHARGE ORDERS: Activity Instructions for Disc: Activity as tolerated Weight Bearing Status after Di: No restrictions DIET AFTER DISCHARGE: ADA CHECKS AFTER DISCHARGE: Checks after discharge: Check blood press - daily, Check blood sugar, ac/hs, Weigh Yourself Daily CERTIFICATION STATEMENT: Certification Statement: Based on the above finding, I certify that this patient is confined to the home and needs intermittent long term care, physical therapy and/or speech therapy, or continues to need occupational therapy.~ This patient is under my care, and I have initiated the establishment of the plan of care.~ This patient will be followed by myself or a community physician who will periodically review the plan of care. DISCHARGE MEDICATIONS: Home Meds Active Scripts Aripiprazole (ABILIFY) 5 Mg Tablet, 5 MG PO DAILY for depression for 30 Days, #30 TAB 3 Refills Prov:PERLA LORENZO MD 11/18/19 Reported Medications Magnesium Oxide (MAGNESIUM OXIDE) 400 Mg Tablet, 1 TAB PO BID for SUPPLEMENT, #60 TAB 5 Refills 01/21/21 Oxybutynin Chloride (OXYBUTYNIN CHLORIDE) 5 Mg Tablet, 1 TAB PO DAILY for OVERACTIVE BLADDER, #60 TAB 11 Refills 01/21/21 Potassium Chloride (KLOR-CON M20) 20 Meq Tab.er.prt, 1 TAB PO PRN DAILY PRN for SUPPLEMENT for 30 Days, TAB 0 Refills 01/21/21 Fosinopril Sodium (FOSINOPRIL SODIUM) 40 Mg Tablet, 0.5 TAB PO DAILY for HTN, #30 TAB 5 Refills 01/21/21 Levothyroxine Sodium (LEVOTHYROXINE SODIUM) 88 Mcg Tablet, 1 TAB PO DAILY06 for hypothyroidism, #30 TAB 5 Refills 01/21/21 Insulin Glargine,Hum.rec.anlog (LANTUS SOLOSTAR) 100 Unit/1 Ml Insuln.pen, 12 UNIT SQ QHS for Diabetes LAST DOSE GIVEN: DATE: YESTERDAY TIME: BEDTIME NEXT DOSE DUE: DATE: TODAY TIME: BEDTIME 06/07/19 Cyanocobalamin (Vitamin B-12) (VITAMIN B-12) 1,000 Mcg Tablet, 1000 MCG PO DAILYWLUN for SUPPLEMENT LAST DOSE GIVEN: DATE: TODAY TIME: WITH LUNCH NEXT DOSE DUE: DATE: TOMORROW TIME: WITH LUNCH 09/19/16 Krill/Om-3/Dha/Epa/Phospho/Ast (KRILL OIL 1,000 MG SOFTGEL) 1 Each Capsule, 1 EACH PO DAILYWLUN for HEART HEALTH LAST DOSE GIVEN: DATE: TODAY TIME: WITH LUNCH NEXT DOSE DUE: DATE: TOMORROW TIME: WITH LUNCH 09/19/16 Cranberry Extract (CRANBERRY) 250 Mg Capsule, 500 MG PO DAILYWLUN for URINARY HEALTH NEXT DOSE DUE: DATE: RESTART TODAY TIME: WHEN YOU GET HOME 09/19/16 Nifedipine (NIFEDIPINE ER) 60 Mg Tablet.er, 60 MG PO DAILY for HIGH BLOOD PRESSURE LAST DOSE GIVEN: DATE: TODAY TIME: AM NEXT DOSE DUE: DATE: TOMORROW TIME: AM 09/19/16 Cholecalciferol (Vitamin D3) (VITAMIN D) 1,000 Unit Capsule, 1 CAP PO DAILYWLUN for BONE HEALTH LAST DOSE GIVEN: DATE: TODAY TIME: WITH LUNCH NEXT DOSE DUE: DATE: TOMORROW TIME: WITH LUNCH 09/24/15 Carbidopa/Levodopa (CARBIDOPA-LEVODOPA 25-100 TAB) 1 Each Tablet, 1.5 EACH PO QID for PARKINSON'S TREMORS LAST DOSE GIVEN: DATE: TODAY TIME: AFTERNOON NEXT DOSE DUE: DATE: TODAY TIME: EVENING 09/24/15 Donepezil Hcl (DONEPEZIL HCL) 5 Mg Tablet, 2 TAB PO DAILY for MEMORY LAST DOSE GIVEN: DATE: YESTERDAY TIME: AT BEDTIME NEXT DOSE DUE: DATE: TODAY TIME: WITH BEDTIME 09/24/15 Lamotrigine (LAMICTAL) 150 Mg Tablet, 150 MG PO BID for mood stabilizer LAST DOSE GIVEN: DATE: TODAY TIME: AM NEXT DOSE DUE: DATE: TODAY TIME: PM 03/02/15 Acetaminophen (TYLENOL) 325 Mg Tablet, 2 TAB PO PRN Q6HRS PRN for PAIN Not taken, take if/when needed for pain. DATE: TIME: NEXT DOSE DUE: DATE: TODAY TIME: IF NEEDED 03/02/15 Multivitamin (DAILY MULTIPLE VITAMIN) 1 Each Tablet, 1 EACH PO DAILYWLUN for SUPPLEMENT LAST DOSE GIVEN: DATE: TODAY TIME: WITH LUNCH NEXT DOSE DUE: DATE: TOMORROW TIME: WITH LUNCH 02/17/15 Metformin Hcl (METFORMIN HCL) 1,000 Mg Tablet, 1 TAB PO BIDWMEALS for HIGH BLOOD SUGAR LAST DOSE GIVEN: DATE: TODAY TIME: WITH BREAKFAST NEXT DOSE DUE: DATE: TODAY TIME: WITH DINNER 02/17/15 Carvedilol (CARVEDILOL) 25 Mg Tablet, 1 TAB PO BID for IRREGULAR HEARTRATE LAST DOSE GIVEN: DATE: TODAY TIME: AM NEXT DOSE DUE: DATE: TODAY TIME; PM 02/17/15 Pravastatin Sodium (PRAVASTATIN SODIUM) 80 Mg Tablet, 1 TAB PO QHS for HIGH CHOLESTEROL LAST DOSE GIVEN: DATE: YESTERDAY TIME: AT BEDTIME NEXT DOSE DUE: DATE: TODAY TIME: AT BEDTIME 02/17/15 Aspirin (ASPIR 81) 81 Mg Tablet.dr, 1 TAB PO DAILY for PREVENT BLOOD CLOTS LAST DOSE GIVEN: DATE: TIME: AM NEXT DOSE DUE: DATE: TOMORROW TIME: AM 02/17/15 Discontinued Reported Medications Levothyroxine Sodium (LEVOTHYROXINE SODIUM) 50 Mcg Tablet, 75 MCG PO DAILY06 for LOW THYROID HORMONES LAST DOSE GIVEN: DATE: TODAY TIME: AM NEXT DOSE DUE: DATE: TOMORROW TIME: AM 02/17/15 PERLA LORENZO MD January 24, 2021 11:28
[2021-01-24] MEDS: MULTIVITAMIN with MINERAL TABLET. PO SCH (11:56)
[2021-01-24] MEDS: CYANOCOBALAMIN (VITAMIN B-12) 1,000 MCG TABLET. PO SCH (11:56)
[2021-01-24] MEDS: OMEGA-3 FATTY ACIDS/FISH OIL 1,000 MG CAPSULE. PO SCH (11:56)
[2021-01-24] MEDS: CHOLECALCIFEROL (VITAMIN D3) 1,000 UNIT TABLET PO SCH (11:56)
--- NOTE | 2021-01-24 14:30 | NUR ---
PATIENT IS DISCHARGED HOME WITH HOME HEALTH SERVICE. DISCHARGE INSTRUCTIONS REVIEWED, PATIENT VERBALIZED UNDERSTANDING. PATIENT LEFT UNIT VIA AMBULATION ACCOMP BY STAFF. PATIENT IS TAKEN HOME BY VIA PERSONAL VEHICLE.
[2021-01-24] MEDS ORDERED: SIMVASTATIN 40 MG TABLET. PO SCH (21:00)
== END 2021-01-24 14:00 | disposition home health service (06) | DRG 291 ==
LOC: 1 SOUTH 19:11
PROVIDERS: ADMIT Family Medicine; ATTEND Family Medicine
DX: I11.0 Hypertensive heart disease with heart failure (principal); I50.21 Acute systolic (congestive) heart failure; J81.1 Chronic pulmonary edema; I16.0 Hypertensive urgency; D56.9 Thalassemia, unspecified; E03.9 Hypothyroidism, unspecified; E11.319 Type 2 diabetes mellitus with unspecified diabetic retinopathy without macular edema; E78.00 Pure hypercholesterolemia, unspecified; F02.80 Dementia in other diseases classified elsewhere, unspecified severity, without behavioral disturbance, psychotic disturbance, mood disturbance, and anxiety; F31.9 Bipolar disorder, unspecified; D64.9 Anemia, unspecified; G20 Parkinson's disease; G30.9 Alzheimer's disease, unspecified; I25.10 Atherosclerotic heart disease of native coronary artery without angina pectoris; Z82.49 Family history of ischemic heart disease and other diseases of the circulatory system; Z83.3 Family history of diabetes mellitus; Z95.5 Presence of coronary angioplasty implant and graft; Z79.899 Other long term (current) drug therapy; Z90.49 Acquired absence of other specified parts of digestive tract; Z87.440 Personal history of urinary (tract) infections; Z88.8 Allergy status to other drugs, medicaments and biological substances
CPT/HCPCS: 36415; 71045; 80048; 80053; 81001; 82550; 82947; 83880; 84484; 85025; 86038; 93005; 93971; J1815; J1940

== ENCOUNTER 2021-06-18 15:44 | Inpatient (IN) | payer MEDICARE, BC ==
[~2021-06-18] VITALS: Ht 170.2 cm; Wt 78.8 kg
[~2021-06-18 15:44] MED LIST changes: +CARV12.547 PO; -CLIN150C15 PO; +CLIN150C16 PO; +CLON1PAT2 TD; +FURO40TA4 PO; +LEVO88TA4 PO; +MAGN400T48 PO; -MAGN400T5 PO; +OXYB5TAB10 PO; +POTA-121 PO; +TORS20TA2 PO
[2021-06-18] MEDS ORDERED: IV NORMAL SALINE 1,000ML 1,000 ML IV ONE (16:00)
--- NOTE | 2021-06-18 16:02 | PHYS DOC ---
Past History Past Medical History: Anxiety, Bipolar, Depression, Diabetes, High Cholesterol, Hypertension, Other Additional Past Medical Histor: parkinson's (MARILY VINCENT APRN) Past Surgical History: Other Additional Past Surgical Histo: one stent (MARILY VINCENT APRN) Smoking: Non-smoker Alcohol Use: None Drug Use: None (MARILY VINCENT APRN) General Adult EDM: Chief Complaint: WEAKNESS/GENERALIZED HPI: HPI: Patient is a 80-year-old female who presents to the ER for generalized weakness that is increased over the last week. She states that her does have to help her occasionally get out of bed but has been more than normal. Patient was seen last week in this ER with a urinary tract infection and discharged home. Patient has a history of Parkinson's and hypertension. She is alert and oriented x4. She has stable vital signs. Reports a mild cough. Patient denies fever, pain, nausea, abdominal pain, vomiting, dysuria, shortness of breath, chest pain. (MARILY VINCENT APRN) Review of Systems: Review of Systems: 14 body systems of the review of systems have been reviewed. See HPI for pertinent positive and negative responses, otherwise all other systems are negative, nonpertinent or noncontributory (MARILY VINCENT APRN) Allergies: Allergies: Allergies Coded Allergies Type Severity Reaction Last Updated Verified atorvastatin Allergy Intermediate "sore upper arms" 09/26/20 Yes iodine Allergy Intermediate 09/26/20 Yes pioglitazone Allergy Mild 09/26/20 Yes (MARILY VINCENT APRN) Physical Exam: PE: Constitutional: Well developed, well nourished, no acute distress, non-toxic appearance. [] HENT: Normocephalic, atraumatic, bilateral external ears normal, oropharynx moist, no oral exudates, nose normal. [] Eyes: PERRL, EOMI, conjunctiva normal, no discharge. [] Neck: Normal range of motion, no stridor Cardiovascular:Heart rate regular rhythm, no murmur [] Lungs & Thorax: Bilateral breath sounds clear to auscultation [] Abdomen: Bowel sounds normal, soft, no tenderness, no masses, no pulsatile masses. [] Skin: Warm, dry, no erythema, no rash. [] Back: No tenderness Extremities: No tenderness, no cyanosis, no clubbing, ROM intact, no edema. [] Neurologic: Alert and oriented X 3, normal motor function, normal sensory function, no focal deficits noted, no pronator drift, good movement of all 4 extremities, tremor most likely due to her Parkinson's. [] Psychologic: Affect normal, judgement normal, mood normal. [] (MARILY VINCENT APRN) Current Patient Data: Labs: Laboratory Tests Test 06/18/21 16:04 06/18/21 16:11 06/18/21 17:21 Urine Collection Type Unknown Urine Color Yellow Urine Clarity Clear Urine pH 6.0 Urine Specific [place] 1.020 Urine Protein 100 mg/dl Urine Glucose (UA) Neg mg/dL Urine Ketones (Stick) 15 mg/dL Urine Blood Neg Urine Nitrite Neg Urine Bilirubin Small Urine Urobilinogen Dipstick 0.2 mg/dL Urine Leukocyte Esterase Trace Urine RBC 0 /HPF Urine WBC 5-10 /HPF Urine Squamous Epithelial Cells Few /LPF Urine Bacteria Few /HPF Urine Waxy Casts Occ /HPF Troponin I Quantitative < 0.017 ng/mL SARS-CoV-2 Antigen (Rapid) Negative White Blood Count 7.4 x10^3/uL Red Blood Count 4.88 x10^6/uL Hemoglobin 9.9 g/dL Hematocrit 31.7 % Mean Corpuscular Volume 65 fL Mean Corpuscular Hemoglobin 20 pg Mean Corpuscular Hemoglobin Concent 31 g/dL Red Cell Distribution Width 17.5 % Platelet Count 262 x10^3/uL Neutrophils (%) (Auto) 72 % Lymphocytes (%) (Auto) 20 % Monocytes (%) (Auto) 6 % Eosinophils (%) (Auto) 1 % Basophils (%) (Auto) 1 % Neutrophils # (Auto) 5.3 x10^3uL Lymphocytes # (Auto) 1.4 x10^3/uL Monocytes # (Auto) 0.5 x10^3/uL Eosinophils # (Auto) 0.1 x10^3/uL Basophils # (Auto) 0.1 x10^3/uL Platelet Estimate Pending Sodium Level 140 mmol/L Potassium Level 4.3 mmol/L Chloride Level 104 mmol/L Carbon Dioxide Level 30 mmol/L Anion Gap 6 Blood Urea Nitrogen 11 mg/dL Creatinine 0.9 mg/dL Estimated GFR (Cockcroft-Gault) 73.3 BUN/Creatinine Ratio 12 Glucose Level 152 mg/dL Calcium Level 9.6 mg/dL Total Bilirubin 0.7 mg/dL Aspartate Amino Transf (AST/SGOT) 15 U/L Alanine Aminotransferase (ALT/SGPT) 10 U/L Alkaline Phosphatase 79 U/L Total Protein 6.6 g/dL Albumin 3.4 g/dL Albumin/Globulin Ratio 1.1 Current Medications Medications (Trade) Dose Ordered Sig/Evy Route PRN Reason Start Time Stop Time Status Last Admin Dose Admin Sodium Chloride 1,000 ml @ 1,000 mls/hr 1X ONCE IV 06/18/21 16:00 06/18/21 16:59 DC 06/18/21 16:16 Vital Signs: Vital Signs Date Time Temp Pulse Resp B/P (MAP) Pulse Ox O2 Delivery O2 Flow Rate FiO2 06/18/21 15:50 98.5 63 18 121/91 (101) 99 Room Air (MARILY VINCENT APRN) EKG: EKG: EKG performed by ER staff at 1547 shows sinus rhythm with a rate of 63, no STEMI read by Dr. Guzman at 1554. (MARILY VINCENT APRN) Radiology/Procedures: Radiology/Procedures: []PROCEDURE: PORTABLE CHEST 1V Single view of the chest. 06/18/2021 4:02 PM Indication: Reason: weakness / Spl. Instructions: / History: Comparison: Chest radiograph January 21, 2021 Findings: There is no focal consolidation. There is no pleural effusion or pneumothorax. Heart size is stable. No acute osseous abnormalities are seen. Impression: No evidence of acute cardiopulmonary process. Electronically signed by: Patric Sutton MD (06/18/2021 4:46 PM) [id number] DICTATED AND SIGNED BY: PATRIC SUTTON MD DATE: 06/18/21 1645 CC: PERLA LORENZO MD; MARILY VINCENT APRN ~MTH0 0 (MARILY VINCENT APRN) Heart Score: C/O Chest Pain: No Risk Factors: Risk Factors: DM, Current or recent (<one month) smoker, HTN, HLP, family history of CAD, obesity. Risk Scores: Score 0 - 3: 2.5% MACE over next 6 weeks - Discharge Home Score 4 - 6: 20.3% MACE over next 6 weeks - Admit for Clinical Observation Score 7 - 10: 72.7% MACE over next 6 weeks - Early Invasive Strategies (MARILY VINCENT APRN) Course & Med Decision Making: Course & Med Decision Making Pertinent Labs and Imaging studies reviewed. (See chart for details) Patient is a 72 female who presents to the ER today for increased generalized weakness. Work-up in the ER consisted of blood work, EKG, chest x-ray and urinalysis. CBC and CMP are unremarkable. CXR negative. Negative rapid Covid test. Negative troponin. Urinalysis shows urinary tract infection, patient will be treated with antibiotics. I discussed patient's findings with Dr. Trevino who is her primary care provider and he agreed to admit the patient under his services with generalized weakness and urinary tract infection. Discussed findings with patient as well as treatment plan and she is agreeable at this time. Care transferred to 1833. (MARILY VINCENT APRN) Dragon Disclaimer: Dragon Disclaimer: This electronic medical record was generated, in whole or in part, using a voice recognition dictation system. (MARILY VINCENT APRN) Departure Departure: Impression: Primary Impression: Urinary tract infection Qualified Codes: N30.00 - Acute cystitis without hematuria Additional Impression: Generalized weakness Disposition: ADMITTED INPATIENT Admitting Physician: Perla Lorenzo (MARILY VINCENT APRN) Condition: STABLE Referrals: PERLA LORENZO MD (PCP) Attending Signature Attending Signature I have reviewed the PA/PRISON TEACHER's note and plan of care. I was available for c onsultation as needed during the patient's visit in the emergency department. I agree with the clinical impression, plan, and disposition. (FREDY GUZMAN DO) MARILY VINCENT APRN Jun 18, 2021 16:02 FREDY GUZMAN DO Jun 18, 2021 22:12
--- NOTE | 2021-06-18 16:48 | RAD ---
Single view of the chest. 06/18/2021 4:02 PM Indication: Reason: weakness / Spl. Instructions: / History: Comparison: Chest radiograph January 21, 2021 Findings: There is no focal consolidation. There is no pleural effusion or pneumothorax. Heart size i s stable. No acute osseous abnormalities are seen. Impression: No evidence of acute cardiopulmonary process. Electronically signed by: Patric Sheikh MD (06/18/2021 4:46 PM) [id number]
--- NOTE | 2021-06-18 17:04 | EKG ---
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
[2021-06-18 17:23] LABS: CLARITY,URINE CLEAR; COLOR,URINE YELLOW; GLUCOSE,URINE NEG (NEG)
[2021-06-18 17:24] LABS: BACTERIA,URINE FEW /HPF (0-FEW); BILIRUBIN,URINE SMALL (NEG); NITRITE,URINE NEG (NEG); RBC,URINE 0 /HPF (0-2); SQUAMOUS EPITHELIAL CELL,UR FEW /LPF; UROBILINOGEN,URINE 0.2 mg/dL (0.2 mg/dL); WAXY CASTS,URINE OCC /HPF
[2021-06-18 17:41] LABS: BASO # 0.1 x10^3/uL (0.0-0.2); BASO % 1 % (0-3); EOS # 0.1 x10^3/uL (0.0-0.7); EOS % 1 % (0-3); HEMATOCRIT 31.7 % (36.0-47.0); HEMOGLOBIN 9.9 g/dL (12.0-15.5); LYMPH # 1.4 x10^3/uL (1.0-4.8); LYMPH % 20 % (24-48); MEAN CORPUSCULAR HEMOGLOBIN 20 pg (25-35); MEAN CORPUSCULAR HGB CONC 31 g/dL (31-37); MEAN CORPUSCULAR VOLUME 65 fL (79-100); MONO # 0.5 x10^3/uL (0.0-1.1); MONO % 6 % (0-9); NEUT # 5.3 x10^3uL (1.8-7.7); NEUT % 72 % (31-73); PLATELET COUNT 262 x10^3/uL (140-400); RED BLOOD COUNT 4.88 x10^6/uL (3.50-5.40); RED CELL DISTRIBUTION WIDTH 17.5 % (11.5-14.5); WHITE BLOOD COUNT 7.4 x10^3/uL (4.0-11.0)
[2021-06-18 17:42] LABS: CALCIUM 9.6 mg/dL (8.5-10.1); CREATININE 0.9 mg/dL (0.6-1.0); GFR 73.3; POTASSIUM 4.3 mmol/L (3.5-5.1)
[2021-06-18 17:48] LABS: ALBUMIN 3.4 g/dL (3.4-5.0); ALBUMIN/GLOBULIN RATIO 1.1 (1.0-1.7); TOTAL BILIRUBIN 0.7 mg/dL (0.2-1.0); TOTAL PROTEIN 6.6 g/dL (6.4-8.2)
[2021-06-18 18:37] LABS: PLT ESTIMATE ADEQUATE (ADEQUATE)
[2021-06-18 18:39] LABS: ANISOCYTOSIS MOD; HYPOCHROMIA MOD; TARGET CELLS OCC
[2021-06-18] MEDS ORDERED: cefTRIAXone SODIUM 1 GM VIAL ONE (18:43)
[2021-06-18] MEDS ORDERED: IV NORMAL SALINE 50ML 50 ML ONE (18:43)
[2021-06-18 19:40] VITALS: BP 216/88
[2021-06-18] MEDS: LABETALOL 20 MG/4 ML DISP.SYRIN. IVP PRN (21:41)
[2021-06-18 22:37] VITALS: BP 216/88
[2021-06-18 23:39] VITALS: BP 227/83
[2021-06-19] VITALS (8 sets, daily range): BP systolic 130–215; BP diastolic 65–84
[2021-06-19] MEDS: LABETALOL 20 MG/4 ML DISP.SYRIN. IVP PRN ×2 (03:00→06:25)
[2021-06-19 06:07] LABS: BASO # 0.1 x10^3/uL (0.0-0.2); BASO % 1 % (0-3); EOS # 0.1 x10^3/uL (0.0-0.7); EOS % 2 % (0-3); HEMATOCRIT 29.3 % (36.0-47.0); HEMOGLOBIN 9.3 g/dL (12.0-15.5); LYMPH # 1.2 x10^3/uL (1.0-4.8); LYMPH % 18 % (24-48); MEAN CORPUSCULAR HEMOGLOBIN 20 pg (25-35); MEAN CORPUSCULAR HGB CONC 32 g/dL (31-37); MEAN CORPUSCULAR VOLUME 64 fL (79-100); MONO # 0.3 x10^3/uL (0.0-1.1); MONO % 5 % (0-9); NEUT # 4.7 x10^3uL (1.8-7.7); NEUT % 73 % (31-73); PLATELET COUNT 254 x10^3/uL (140-400); RED BLOOD COUNT 4.56 x10^6/uL (3.50-5.40); RED CELL DISTRIBUTION WIDTH 17.4 % (11.5-14.5); WHITE BLOOD COUNT 6.3 x10^3/uL (4.0-11.0)
[2021-06-19 06:23] LABS: ALBUMIN 3.1 g/dL (3.4-5.0); CALCIUM 9.2 mg/dL (8.5-10.1); CREATININE 0.8 mg/dL (0.6-1.0); GFR 83.9; POTASSIUM 3.5 mmol/L (3.5-5.1); TOTAL BILIRUBIN 0.7 mg/dL (0.2-1.0); TOTAL PROTEIN 6.3 g/dL (6.4-8.2)
[2021-06-19] MEDS ORDERED: ACETAMINOPHEN 325 MG TABLET PO PRN (06:45)
[2021-06-19] MEDS: CARBIDOPA/LEVODOPA 25/100MG TABLET PO SCH ×4 (08:22→20:19)
[2021-06-19] MEDS: DONEPEZIL HCL 5 MG TABLET. PO SCH (08:22)
[2021-06-19] MEDS: MAGNESIUM OXIDE 400 MG TABLET PO SCH ×2 (08:22→20:19)
[2021-06-19] MEDS: FUROSEMIDE 40 MG TABLET PO SCH (08:23)
[2021-06-19] MEDS: ASPIRIN ENTERIC COATED 81 MG TABLET.DR. PO SCH (08:23)
[2021-06-19] MEDS: ARIPiprazole 5 MG TABLET PO SCH (08:23)
[2021-06-19] MEDS: lamoTRIgine 100 MG TABLET. PO SCH ×2 (08:23→20:18)
[2021-06-19] MEDS: metFORMIN 500 MG TABLET PO SCH ×2 (08:23→17:35)
[2021-06-19] MEDS: LEVOTHYROXINE 88 MCG TABLET PO SCH (08:23)
[2021-06-19] MEDS: OXYBUTYNIN CHLORIDE 5 MG TABLET PO SCH (08:23)
[2021-06-19] MEDS: CARVEDILOL 12.5 MG TABLET PO SCH ×3 (08:24→20:19)
[2021-06-19] MEDS: POTASSIUM CHLORIDE 20 MEQ TABLET.ER. PO SCH (08:24)
[2021-06-19] MEDS: LISINOPRIL 20 MG TABLET PO SCH (08:24)
[2021-06-19] MEDS ORDERED: NON FORMULARY ITEM (Carvedilol 1 TAB) PO SCH (09:00)
[2021-06-19] MEDS ORDERED: cloNIDine TTS-2 1 PATCH PATCH TD SCH (09:00)
[2021-06-19] MEDS: hydrALAZINE 25 MG TABLET PO SCH ×3 (09:00→20:18)
[2021-06-19] MEDS: MULTIVITAMIN with MINERAL TABLET. PO SCH (12:15)
[2021-06-19] MEDS: CYANOCOBALAMIN (VITAMIN B-12) 1,000 MCG TABLET. PO SCH (12:15)
[2021-06-19] MEDS: CHOLECALCIFEROL (VITAMIN D3) 1,000 UNIT TABLET PO SCH (12:15)
[2021-06-19] MEDS: SIMVASTATIN 40 MG TABLET. PO SCH (20:19)
[2021-06-19] MEDS ORDERED: NON FORMULARY ITEM (Pravastatin Sodium 1 TAB) PO SCH (21:00)
[2021-06-19] MEDS: INSULIN GLARGINE SYRINGE. SQ SCH (21:19)
--- NOTE | 2021-06-20 04:25 | HP ---
ADMIT DATE: 06/18/2021 HISTORY OF PRESENT ILLNESS: A 80-year-old female with known history of Parkinson's disease, sickle cell, came in through the Emergency Room. Family was unable to get her out of bed, which was not normal for her. The patient has generalized weakness and has severe Parkinson's disease with essential hypertension. The patient has been alert, has a mild cough. She is just generally weak and exacerbated overall. The patient was admitted for possible bladder infection, which she has many of because of incontinence. PAST MEDICAL HISTORY: Encephalopathy, dementia, Alzheimer's, Parkinson's, severe cardiac stent x1, hypertension, DVT, cholecystectomy, fibroid, urinary tract infections, incontinence, osteoarthritis, right knee arthroplasty, hypothyroidism, thalassemia major from ____ anemia, psychiatric problems, bipolar, depression, anemia, venous insufficiency, diphtheria. IMMUNIZATIONS: Tetanus, influenza, and pneumococcal vaccination. FAMILY HISTORY: Positive for sickle cell in a son, hypertension, father and mother, diabetes, and cardiovascular disease. ALLERGIES: LIPITOR, IODINE, AND PIOGLITAZONE. SOCIAL HISTORY: Denies smoking, alcohol, or drug use. CODE: Full code. REVIEW OF SYSTEMS: The patient just complains of generalized weakness, otherwise denies chest pain, shortness of breath. Denies any abdominal pain, unable to take her medications. The patient denies any problem with bowels or bladder. PHYSICAL EXAMINATION: VITAL SIGNS: Blood pressure 227/83 (NC), respiratory rate 18, pulse 75, afebrile. HEENT: The patient's head was atraumatic, normocephalic. Eyes: PERRLA without jaundice. The mouth and throat were normal. NECK: Supple. LUNGS: Diminished, but basically clear. CARDIOVASCULAR: Regular sinus rhythm. ABDOMEN: Soft, nontender, no rebounding or guarding. Positive bowel sounds, no hepatosplenomegaly was noted. EXTREMITIES: No clubbing, cyanosis, nor edema. NEUROLOGIC: The patient was alert. She has marked resting tremor, pill rolling tremor ____. The patient has weakness in both the upper and lower extremities, has severe Parkinson's disease, trouble with her speech, trouble with swallowing and the like. LABORATORY DATA: The patient's white count 7, hemoglobin 9 and 31. Chemistries, 143, 3.5. BUN and creatinine of 11 and 0.8. Slight moderate protein malnutrition. Blood sugar 174. Serology negative for COVID. IMPRESSION: Change in mental status, possible metabolic encephalopathy, severe Parkinson's disease, hypertensive urgency (NC), generalized weakness, thalassemia, moderate protein malnutrition. The patient continued to be monitored carefully to make further evaluation on her as indicated. WALESKA/RASHIDA/MIGEL DR: WALESKA/kenneth TID: [id number]
[2021-06-20 06:13] VITALS: BP 147/70
[2021-06-20] MEDS: LEVOTHYROXINE 88 MCG TABLET PO SCH (06:14)
[2021-06-20] MEDS: MAGNESIUM OXIDE 400 MG TABLET PO SCH ×2 (08:04→19:29)
[2021-06-20] MEDS: LACTOBACILLUS RHAMNOSUS GG 1 CAPSULE. PO SCH ×2 (08:04→19:29)
[2021-06-20] MEDS: FUROSEMIDE 40 MG TABLET PO SCH (08:04)
[2021-06-20] MEDS: OXYBUTYNIN CHLORIDE 5 MG TABLET PO SCH ×3 (08:04→19:30)
[2021-06-20] MEDS: ARIPiprazole 5 MG TABLET PO SCH (08:04)
[2021-06-20] MEDS: ASPIRIN ENTERIC COATED 81 MG TABLET.DR. PO SCH (08:04)
[2021-06-20] MEDS: metFORMIN 500 MG TABLET PO SCH ×2 (08:05→16:41)
[2021-06-20] MEDS: POTASSIUM CHLORIDE 20 MEQ TABLET.ER. PO SCH (08:05)
[2021-06-20] MEDS: LISINOPRIL 20 MG TABLET PO SCH (08:05)
[2021-06-20] MEDS: hydrALAZINE 25 MG TABLET PO SCH ×3 (08:06→19:29)
[2021-06-20] MEDS: lamoTRIgine 100 MG TABLET. PO SCH ×2 (08:06→19:28)
[2021-06-20] MEDS: CARBIDOPA/LEVODOPA 25/100MG TABLET PO SCH ×4 (08:07→19:30)
[2021-06-20] MEDS: CARVEDILOL 12.5 MG TABLET PO SCH ×3 (08:07→19:29)
[2021-06-20] MEDS: DONEPEZIL HCL 5 MG TABLET. PO SCH (08:08)
[2021-06-20 10:43] VITALS: BP 102/55
[2021-06-20] MEDS: MULTIVITAMIN with MINERAL TABLET. PO SCH (11:37)
[2021-06-20] MEDS: CYANOCOBALAMIN (VITAMIN B-12) 1,000 MCG TABLET. PO SCH (11:37)
[2021-06-20] MEDS: CHOLECALCIFEROL (VITAMIN D3) 1,000 UNIT TABLET PO SCH (11:37)
[2021-06-20 14:47] VITALS: BP 169/71
[2021-06-20 14:50] VITALS: BP 132/76
[2021-06-20 19:24] VITALS: BP 168/73
[2021-06-20] MEDS: SIMVASTATIN 40 MG TABLET. PO SCH (19:30)
[2021-06-20] MEDS: INSULIN GLARGINE SYRINGE. SQ SCH (19:32)
[2021-06-20 23:22] VITALS: BP 171/75
--- NOTE | 2021-06-21 02:38 | PN ---
SUBJECTIVE: The patient in with urinary tract infection as well as generalized weakness and deconditioning. The patient is making relatively good progress. She also has a long history of thalassemia, anemia. Blood sugars are basically coming under better control, although still elevated. The patient's urine is basically clear. Serology COVID negative. OBJECTIVE: VITAL SIGNS: Blood pressure had been elevated, but came down to 132/76, respiratory rate 20, pulse 88, oxygen saturation if accurate as not quite clear if it went down to 69 or 88 (NC). LUNGS: Otherwise, diminished throughout. CARDIOVASCULAR: Stable. ABDOMEN: Soft, nontender. GENERAL: The patient is mobilizing with a walker with help from the physical therapist. Otherwise, we will continue to monitor her accordingly change in mental status, possible metabolic encephalopathy, severe Parkinson's disease, hypertensive urgency, generalized weakness, thalassemia, and moderate protein malnutrition. VAUGHN DR: Ananth TID: [id number]
[2021-06-21 05:54] VITALS: BP 170/75
[2021-06-21] MEDS: LEVOTHYROXINE 88 MCG TABLET PO SCH (06:31)
[2021-06-21] MEDS: LACTOBACILLUS RHAMNOSUS GG 1 CAPSULE. PO SCH (07:51)
[2021-06-21] MEDS: POTASSIUM CHLORIDE 20 MEQ TABLET.ER. PO SCH (07:52)
[2021-06-21] MEDS: hydrALAZINE 25 MG TABLET PO SCH (07:52)
[2021-06-21] MEDS: MAGNESIUM OXIDE 400 MG TABLET PO SCH (07:52)
[2021-06-21] MEDS: OXYBUTYNIN CHLORIDE 5 MG TABLET PO SCH (07:53)
[2021-06-21] MEDS: ARIPiprazole 5 MG TABLET PO SCH (07:53)
[2021-06-21] MEDS: metFORMIN 500 MG TABLET PO SCH (07:53)
[2021-06-21] MEDS: LISINOPRIL 20 MG TABLET PO SCH (07:53)
[2021-06-21] MEDS: ASPIRIN ENTERIC COATED 81 MG TABLET.DR. PO SCH (07:53)
[2021-06-21] MEDS: CARVEDILOL 12.5 MG TABLET PO SCH (07:54)
[2021-06-21] MEDS: DONEPEZIL HCL 5 MG TABLET. PO SCH (07:54)
[2021-06-21] MEDS: CARBIDOPA/LEVODOPA 25/100MG TABLET PO SCH ×2 (07:55→12:16)
[2021-06-21] MEDS: lamoTRIgine 100 MG TABLET. PO SCH (07:55)
[2021-06-21 07:56] VITALS: BP 170/75
[2021-06-21] MEDS ORDERED: TORSEMIDE 20 MG TABLET. PO SCH (09:00)
[2021-06-21] MEDS ORDERED: CARV25TA2 PO (09:52)
[2021-06-21] MEDS ORDERED: HYDR-2868 PO (09:52)
[2021-06-21] MEDS ORDERED: OXYB5TAB10 PO (09:52)
--- NOTE | 2021-06-21 09:54 | DISCH ---
HOME HEALTH DISCHARGE/MEDS DISCHARGE INFORMATION: Discharge Date: Jun 21, 2021 Final Diagnosis: Problems Medical Problems: (1) Generalized weakness Status: Acute (2) Urinary tract infection Status: Acute Condition on Discharge: Stable CODE STATUS: Code Status: Full HOME HEALTH: Face to Face: I certify this patient is under my care and that I, or a nurse practitioner or physician's chiropractic assistant working with me, had a face to face encounter that meets the physician face to face encounter requirements with this patient on 06/21/2021. Medical Condition(s): DM, HTN Intermediate For: Assess Cardiopulm Status, Assess & Educate Safety, Assess/Skilled Observatio, Diabetic Care, Medication Management Physical Therapy For: Evalulation/Treatment Occupational Therapy For: Evaluation/Treatment POST DISCHARGE ORDERS: Activity Instructions for Disc: Activity as tolerated Weight Bearing Status after Di: No restrictions DIET AFTER DISCHARGE: ADA CHECKS AFTER DISCHARGE: Checks after discharge: Check blood press - daily, Check blood sugar, ac/hs CERTIFICATION STATEMENT: Certification Statement: Based on the above finding, I certify that this patient is confined to the home and needs intermittent residential care, physical therapy and/or speech therapy, or continues to need occupational therapy.~ This patient is under my care, and I have initiated the establishment of the plan of care.~ This patient will be followed by myself or a community physician who will periodically review the plan of care. DISCHARGE MEDICATIONS: Home Meds Active Scripts Clonidine (CLONIDINE TTS-2) 1 Each Patch.tdwk, 1 PATCH TD WEEKLY for hypertension, #5 PATCH 3 Refills Prov:PERLA LORENZO MD 01/24/21 Furosemide (FUROSEMIDE) 40 Mg Tablet, 1 TAB PO DAILY for edema, #30 TAB 5 Refills Prov:EPRLA LORENZO MD 01/24/21 Carvedilol (CARVEDILOL ) 12.5 Mg Tablet, 25 MG PO TID for heart rate control for 30 Days, #180 TAB 6 Refills Prov:PERLA LORENZO MD 01/24/21 Aripiprazole (ABILIFY) 5 Mg Tablet, 5 MG PO DAILY for depression for 30 Days, #30 TAB 3 Refills Prov:PERLA LORENZO MD 11/18/19 Reported Medications Magnesium Oxide (MAGNESIUM OXIDE) 400 Mg Tablet, 1 TAB PO BID for SUPPLEMENT, #60 TAB 5 Refills 01/21/21 Oxybutynin Chloride (OXYBUTYNIN CHLORIDE) 5 Mg Tablet, 1 TAB PO DAILY for OVERACTIVE BLADDER, #60 TAB 11 Refills 01/21/21 Potassium Chloride (KLOR-CON M20) 20 Meq Tab.er.prt, 1 TAB PO PRN DAILY PRN for SUPPLEMENT for 30 Days, TAB 0 Refills 01/21/21 Fosinopril Sodium (FOSINOPRIL SODIUM) 40 Mg Tablet, 0.5 TAB PO DAILY for HTN, #30 TAB 5 Refills 01/21/21 Levothyroxine Sodium (LEVOTHYROXINE SODIUM) 88 Mcg Tablet, 1 TAB PO DAILY06 for hypothyroidism, #30 TAB 5 Refills 01/21/21 Insulin Glargine,Hum.rec.anlog (LANTUS SOLOSTAR) 100 Unit/1 Ml Insuln.pen, 12 UNIT SQ QHS for Diabetes LAST DOSE GIVEN: DATE: YESTERDAY TIME: BEDTIME NEXT DOSE DUE: DATE: TODAY TIME: BEDTIME 06/07/19 Cyanocobalamin (Vitamin B-12) (VITAMIN B-12) 1,000 Mcg Tablet, 1000 MCG PO DAILYWLUN for SUPPLEMENT LAST DOSE GIVEN: DATE: TODAY TIME: WITH LUNCH NEXT DOSE DUE: DATE: TOMORROW TIME: WITH LUNCH 09/19/16 Krill/Om-3/Dha/Epa/Phospho/Ast (KRILL OIL 1,000 MG SOFTGEL) 1 Each Capsule, 1 EACH PO DAILYWLUN for HEART HEALTH LAST DOSE GIVEN: DATE: TODAY TIME: WITH LUNCH NEXT DOSE DUE: DATE: TOMORROW TIME: WITH LUNCH 09/19/16 Cranberry Extract (CRANBERRY) 250 Mg Capsule, 500 MG PO DAILYWLUN for URINARY HEALTH NEXT DOSE DUE: DATE: RESTART TODAY TIME: WHEN YOU GET HOME 09/19/16 Nifedipine (NIFEDIPINE ER) 60 Mg Tablet.er, 60 MG PO DAILY for HIGH BLOOD PRESSURE LAST DOSE GIVEN: DATE: TODAY TIME: AM NEXT DOSE DUE: DATE: TOMORROW TIME: AM 09/19/16 Cholecalciferol (Vitamin D3) (VITAMIN D) 1,000 Unit Capsule, 1 CAP PO DAILYWLUN for BONE HEALTH LAST DOSE GIVEN: DATE: TODAY TIME: WITH LUNCH NEXT DOSE DUE: DATE: TOMORROW TIME: WITH LUNCH 09/24/15 Carbidopa/Levodopa (CARBIDOPA-LEVODOPA 25-100 TAB) 1 Each Tablet, 1.5 EACH PO QID for PARKINSON'S TREMORS LAST DOSE GIVEN: DATE: TODAY TIME: AFTERNOON NEXT DOSE DUE: DATE: TODAY TIME: EVENING 09/24/15 Donepezil Hcl (DONEPEZIL HCL) 5 Mg Tablet, 2 TAB PO DAILY for MEMORY LAST DOSE GIVEN: DATE: YESTERDAY TIME: AT BEDTIME NEXT DOSE DUE: DATE: TODAY TIME: WITH BEDTIME 09/24/15 Lamotrigine (LAMICTAL) 150 Mg Tablet, 150 MG PO BID for mood stabilizer LAST DOSE GIVEN: DATE: TODAY TIME: AM NEXT DOSE DUE: DATE: TODAY TIME: PM 03/02/15 Acetaminophen (TYLENOL) 325 Mg Tablet, 2 TAB PO PRN Q6HRS PRN for PAIN Not taken, take if/when needed for pain. DATE: TIME: NEXT DOSE DUE: DATE: TODAY TIME: IF NEEDED 03/02/15 Multivitamin (DAILY MULTIPLE VITAMIN) 1 Each Tablet, 1 EACH PO DAILYWLUN for SUPPLEMENT LAST DOSE GIVEN: DATE: TODAY TIME: WITH LUNCH NEXT DOSE DUE: DATE: TOMORROW TIME: WITH LUNCH 02/17/15 Metformin Hcl (METFORMIN HCL) 1,000 Mg Tablet, 1 TAB PO BIDWMEALS for HIGH BLOOD SUGAR LAST DOSE GIVEN: DATE: TODAY TIME: WITH BREAKFAST NEXT DOSE DUE: DATE: TODAY TIME: WITH DINNER 02/17/15 Carvedilol (CARVEDILOL) 25 Mg Tablet, 1 TAB PO BID for IRREGULAR HEARTRATE LAST DOSE GIVEN: DATE: TIME: AM NEXT DOSE DUE: DATE: TODAY TIME; PM 02/17/15 Pravastatin Sodium (PRAVASTATIN SODIUM) 80 Mg Tablet, 1 TAB PO QHS for HIGH CHOLESTEROL LAST DOSE GIVEN: DATE: YESTERDAY TIME: AT BEDTIME NEXT DOSE DUE: DATE: TODAY TIME: AT BEDTIME 02/17/15 Aspirin (ASPIR 81) 81 Mg Tablet., 1 TAB PO DAILY for PREVENT BLOOD CLOTS LAST DOSE GIVEN: DATE: TODAY TIME: AM NEXT DOSE DUE: DATE: TOMORROW TIME: AM 02/17/15 PERLA LORENZO MD Jun 21, 2021 09:54
[2021-06-21] MEDS: CHOLECALCIFEROL (VITAMIN D3) 1,000 UNIT TABLET PO SCH (11:18)
[2021-06-21] MEDS: CYANOCOBALAMIN (VITAMIN B-12) 1,000 MCG TABLET. PO SCH (11:18)
[2021-06-21] MEDS: MULTIVITAMIN with MINERAL TABLET. PO SCH (11:18)
--- NOTE | 2021-06-24 10:03 | DS ---
HOSPITAL COURSE: The patient is a 81-year-old female with history of Parkinson's and thalassemia, came in. She was confused, generalized weakness, had a mild cough. The patient was noted to have some change in mental status. She was admitted to the hospital for further evaluation and treatment. Her chest x-ray was basically unremarkable. She shows chronic anemia of 9.3 and 30 consistent with her history of thalassemia. Blood sugars were monitored carefully. Accu-Cheks were given. She was COVID negative. Urine was unremarkable. Protein slightly low at 3.1. The patient made good progress during the rest of her hospitalization and she was then transferred home per request of her son for followup as an outpatient. IMPRESSION: Otherwise, metabolic encephalopathy, Parkinson's disease, hypertensive urgency, generalized weakness, thalassemia, moderate protein malnutrition. Discharged home in the care of her family. See MRAD. PLAN: As above. VITA DR: Ananth TID: [id number]
== END 2021-06-21 13:03 | disposition home health service (06) | DRG 689 ==
LOC: ER 15:44 → 1 SOUTH 19:24
PROVIDERS: ADMIT Family Medicine; ATTEND Family Medicine
DX: N30.00 Acute cystitis without hematuria (principal); G93.41 Metabolic encephalopathy; E44.0 Moderate protein-calorie malnutrition; E03.9 Hypothyroidism, unspecified; E11.9 Type 2 diabetes mellitus without complications; E78.00 Pure hypercholesterolemia, unspecified; F02.80 Dementia in other diseases classified elsewhere, unspecified severity, without behavioral disturbance, psychotic disturbance, mood disturbance, and anxiety; F31.9 Bipolar disorder, unspecified; G20 Parkinson's disease; G30.9 Alzheimer's disease, unspecified; I10 Essential (primary) hypertension; I16.0 Hypertensive urgency; D56.9 Thalassemia, unspecified; Z20.822 Contact with and (suspected) exposure to COVID-19; Z95.5 Presence of coronary angioplasty implant and graft; Z96.651 Presence of right artificial knee joint; F41.9 Anxiety disorder, unspecified; M19.90 Unspecified osteoarthritis, unspecified site; Z88.8 Allergy status to other drugs, medicaments and biological substances; Z91.041 Radiographic dye allergy status; Z86.718 Personal history of other venous thrombosis and embolism; Z90.49 Acquired absence of other specified parts of digestive tract; Z68.27 Body mass index [BMI] 27.0-27.9, adult
CPT/HCPCS: 36415; 71045; 80053; 81001; 82947; 84484; 85025; 87086; 87426; 93005; 96361; 96365; J0696; J1815; J3490; P9612; U0003; 97110; 97530; 97535; 99285-25; J7030

== ENCOUNTER → 2021-11-14 | Outpatient (CLI) | payer MEDICARE, BC ==
[~2021-11-14] MED LIST changes: -FOSI40TA4 PO; +FOSI40TA52 PO; +HYDR-2868 PO; -LEVO500T8 PO; +LEVO500T9 PO; -VANC1VIA34 MC; +VANC1VIA37 MC
[2021-11-14 17:08] LABS: BASO # 0.1 x10^3/uL (0.0-0.2); BASO % 1 % (0-3); EOS # 0.2 x10^3/uL (0.0-0.7); EOS % 2 % (0-3); HEMOGLOBIN 10.9 g/dL (12.0-15.5); LYMPH # 1.5 x10^3/uL (1.0-4.8); LYMPH % 16 % (24-48); MEAN CORPUSCULAR HEMOGLOBIN 21 pg (25-35); MEAN CORPUSCULAR HGB CONC 31 g/dL (31-37); MEAN CORPUSCULAR VOLUME 68 fL (79-100); MONO # 0.5 x10^3/uL (0.0-1.1); MONO % 5 % (0-9); NEUT % 76 % (31-73); PLATELET COUNT 298 x10^3/uL (140-400); RED BLOOD COUNT 5.19 x10^6/uL (3.50-5.40); RED CELL DISTRIBUTION WIDTH 16.5 % (11.5-14.5); WHITE BLOOD COUNT 9.2 x10^3/uL (4.0-11.0)
[2021-11-14 17:16] LABS: ALBUMIN 4.1 g/dL (3.4-5.0); ALBUMIN/GLOBULIN RATIO 1.1 (1.0-1.7); CALCIUM 10.1 mg/dL (8.5-10.1); CREATININE 0.9 mg/dL (0.6-1.0); GFR 73.1; POTASSIUM 3.9 mmol/L (3.5-5.1); TOTAL BILIRUBIN 0.9 mg/dL (0.2-1.0); TOTAL PROTEIN 7.8 g/dL (6.4-8.2)
[2021-11-14 18:00] LABS: ANISOCYTOSIS SLIGHT; HYPOCHROMIA SLIGHT; MICROCYTOSIS MOD; PLT ESTIMATE ADEQUATE (ADEQUATE)
[2021-11-15 19:22] LABS: CHOLESTEROL/HDL RATIO 1.9; FREE T4 1.55 ng/dL (0.76-1.46); THYROID STIM HORMONE (TSH) 1.732 uIU/mL (0.358-3.740)
[2021-11-16 00:06] LABS: HEMOGLOBIN A1C 6.2 % (4.8-5.6)
== END ==
LOC: LAB 16:11
PROVIDERS: ATTEND Family Medicine
DX: I10 Essential (primary) hypertension (principal); E11.65 Type 2 diabetes mellitus with hyperglycemia; E11.319 Type 2 diabetes mellitus with unspecified diabetic retinopathy without macular edema; E11.9 Type 2 diabetes mellitus without complications; E03.9 Hypothyroidism, unspecified; I50.21 Acute systolic (congestive) heart failure; I25.10 Atherosclerotic heart disease of native coronary artery without angina pectoris; G30.9 Alzheimer's disease, unspecified; D56.9 Thalassemia, unspecified
CPT/HCPCS: 36415; 80053; 80061; 83036; 84439; 84443; 85025